=== PATIENT | male | born 1940 | race Caucasian/White ===

== ENCOUNTER 2022-04-22 11:31 | Inpatient (IN) | payer OTHER ==
--- OUTSIDE RECORDS SUMMARY | 2022-04-22 11:41 | XMS REPORT | Continuity of Care Document ---
:1940 Author Organization [facility] t Address [address] [place] [address] [address] [place] [address] Care Team Providers Name Role Phone RAMESH REY Primary Care Physician Unavailable Brandon ANDERS, Sakshi Renteria Attending Clinician Unavailable JAYDEN MATHEW Attending Clinician Unavailable Megan Ozuna DO Attending Clinician Jayden Mathew DO Attending Clinician Ramesh Rey MD Attending Clinician Doctor Unassigned, [place] Attending Clinician Unavailable Veronica WELLS, Reginald Vargas Attending Clinician [phone] Ed Ritter MD Attending Clinician Shayla Del Angel MD Attending Clinician Micah Mariee MD Attending Clinician ALBERTO OJEDA Attending Clinician Unavailable UNKNOWN, ATTENDING Attending Clinician Unavailable Unknown, Attending Attending Clinician Unavailable RAMESH REY Attending Clinician Unavailable AZUL GONZALEZ Attending Clinician Unavailable Azul Melara Attending Clinician RENE YANG Attending Clinician Unavailable Nurse, Adc Pob Immunization Attending Clinician Unavailable Rene Yang DO Attending Clinician 2, [facility] Attending Clinician Unavailable Maia WELLS, Angelica Luna Attending Clinician ANGELICA CARVALHO Attending Clinician Unavailable Ileana Bowers LVN Attending Clinician Benjie LEAF SIZE PICKER, Daysi Attending Clinician Chester WELLS, Shemar Attending Clinician Nurse, [facility] Attending Clinician Unavailable Dipak WELLS, Dayna Attending Clinician Harinder LEAF SIZE PICKER, Shelley Levine Attending Clinician Shon RABAGO, Lilia Attending Clinician Provider, [facility] Attending Clinician Unavailable Vincent LEAF SIZE PICKER, Jayne Attending Clinician LI DELGADO Attending Clinician Unavailable Liyah RN, Oral Zee Attending Clinician Unavailable Eric Colbert MD Attending Clinician Omaghomi LEAF SIZE PICKER, Omayemi Attending Clinician Tomi LEAF SIZE PICKER, Kameron Attending Clinician KAMERON KRISHNA Attending Clinician Unavailable [facility], [facility] Cardiac Attending Clinician Unavailable Gabriele WELLS, Gopi Attending Clinician JAYDEN MATHEW Admitting Clinician Unavailable Jayden Mathew DO Admitting Clinician ED RITTER Admitting Clinician Unavailable MICAH MARIEE Admitting Clinician Unavailable Shemar Briggs MD Admitting Clinician Eric Colbert MD Admitting Clinician Payers Payer Name Policy Type Policy Number Effective Date Expiration Date Mauricio CARRILLO MANAGED [id number] 2020 MEDICARE PPO-HANG 00:00:00 Problems Condition Condition Condition Status Onset Resolution Last Treating Co mments Source Name Details Category Date Date Treatment Clinician Date Abnormal Abnormal Disease Active 2021-05 Unive rs echocardio echocardio 05-30 it y of gram gram 00:00: [address] Acute Acute Disease Active 2021-05 Univers kidney kidney 1-26 ity of injury injury 00:00: [place] superimpos superimpos 00 Me dical ed on CKD ed on CKD Bran ch Pulmonary Pulmonary Disease Active 2021-05 Uni vers hypertensi hypertensi 1-26 it y of on on 00:00: [place] [facility] Dyslipidem Dyslipidem Disease Active 2021-05 U nivers ia ia 1- ity of 00:00: [place] [facility] SOB SOB Disease Active 2021-05 Univers (shortness (shortness 1-24 it y of of breath) of breath) 00:[place] 00 [place] 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 hodi hypoxia hypoxia 0-11 st 00:00: Hospita 00 l 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 nce 9 st 00:00: Hospita 00 l Acute Acute Disease Active Methodi heart heart [address] st failure, failure, 00:00: Hospit a unspecifie unspecifie 00 l d heart d heart failure failure type type NSVT NSVT Disease Active Univers (nonsustai (nonsustai 7-19 it y of jesenia jesenia 00:00: [place] ventricula ventricula 00 Co dical r r Branch tachycardi tachycardi a) a) Lingular Lingular Disease Active Unive rs pneumonia pneumonia 7-17 ity of 00:00: [place] 00 Medical Branch 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 2020- U nivers protein-ca protein-ca 8-29 it y of kaylee kaylee 00:00: [place] malnutriti malnutriti 00 Me dical on on Branch Chest pain Chest pain Disease Active 2020- U nivers 8-28 ity of 00:00: [place] 00 Medical Branch Essential Essential Disease Active Uni vers hypertensi hypertensi 8-28 it y of on on 00:00: [place] 00 Medical Branch PAD PAD Disease Active Univers (periphera (periphera 8-28 it y of l artery l artery 00:00: [place] disease) disease) 00 Medica l Branch Frequent Frequent Disease Active Unive rs PVCs PVCs 8-28 ity of 00:00: [place] 00 Medical Branch Frequent Frequent Disease Active Unive rs PVCs PVCs 8- ity of 00:00: [place] 00 Medical Branch PAD PAD Disease Active Methodi (periphera (periphera 1-15 st l artery l artery 00:00: Hospit a disease) disease) 00 l [place] Disease Active 2016-05 Methodi virus virus 2-03 st enteritis enteritis 00:00: Hosp fareed 00 l Chronic Chronic Disease Active 2016-05 Univers combined combined 1- ity of systolic systolic 00:00: [place] and and 00 Medical diastolic 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 00:00: [place] disease disease 00 Medical Branch Acute on Acute on Disease Active 2016-05 Unive rs chronic chronic 1-28 ity of systolic systolic 00:00: [place] and and 00 Medical diastolic diastolic Bran ch heart heart failure, failure, NYHA class NYHA class 3 3 CAD CAD Disease Active 2016-05 Methodi (coronary (coronary 1-28 st artery artery 00:00: Hospita disease) disease) 00 l Coronary Coronary Disease Active 2016-05 Unive rs artery artery 1-27 ity of disease disease 00:00: [place] involving involving 00 Medi rory [place] Branch coronary coronary artery of artery of [place] heart with heart with angina angina pectoris pectoris Troponin I Troponin I Disease Active 2016-05 U nivers above above 1-27 ity of reference reference 00:00[place] range range 00 Medical Branch Respirator Respirator Disease Recurre 2016-05 Univers y failure y failure nce 1-23 ity of with with 00:00: [place] hypoxia hypoxia 00 Medical Branch Hypotensio Hypotensio Disease Active 2016-05 U nivers n n 1-22 ity of 00:00: [place] 00 Medical Branch Surgery, Surgery, Disease Active 2016-05 Unive rs elective elective 1-17 ity of 00:00: [place] 00 Medical Branch 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 Added automatic ally from request for surgery [id number] Screening Screening Disease Active Overview: Univers for for 12-06 Formattin ity of colorectal colorectal 00:00: g of this [place] cancer cancer 00 note Medical might be Branch different from the original. Added automatic ally from request for surgery [id number] Allergies, Adverse Reactions, Alerts Allergy Allergy Status Severity Reaction(s) Onset Inactive Treating Comm ents Source Name Type Date Date Clinician Hydrocod Propensi Active GI 2016-05 Method i one ty to Intolerance 06-01 st adverse 00:00: Hospita reaction 00 l s to drug HYDROCOD DRUG Active N/V 2015-05 Univers ONE INGREDI 05-27 ity of 00:00: [place] 00 Medical Branch Hydrocod Propensi Active Nausea 2015-05 Univer s one ty to and/or 05-27 ity of adverse Vomiting 00:00: [place] reaction 00 Medical s Branch Social History Social Habit Start Date Stop Date Quantity Comments Source History [facility] Alcohol Std Drinks Hospit al History [facility] Exposure to 2022-03-18 2022-03-28 Not sure University of SARS-CoV-2 (event) 00:00:00 11:33:00 [facility] Tobacco Comment 2022-03-28 2022-03-28 Quit November 2020 Unive rsity of 00:00:00 00:00:00 [facility] Cigarettes smoked 2022-03-28 2022-03-28 Univers ity of current (pack per 00:00:00 00:00:00 ) - Reported Branch Cigarette 2022-03-28 2022-03-28 University of pack-years 00:00:00 00:00:00 [facility] Tobacco use and 2022-03-28 2022-03-28 Smokeless Universit y of exposure 00:00:00 00:00:[address] non-[address] [facility] dicid Branch Alcohol intake 2022-02-11 2022-02-11 Current [facility] 00:00:00 00:00:00 non-drinker of Hospital alcohol (finding) History of tobacco 2020-11-13 Cigarette Smoker University of use 00:00:00 [facility] History [facility] 2019-12-31 2019-12-31 5 University o f Financial 00:00:00 00:00:00 [facility] History [facility] Food 2019-12-31 2019-12-31 1 Univers ity of Worry 00:00:00 00:00:00 [facility] History [facility] Food 2019-12-31 2019-12-31 1 Univers ity of Scarcity 00:00:00 00:00:00 [place] [facility] History SDSD 2019-12-31 2019-12-31 2 University o f Transport Med 00:00:00 00:00:00 [place] Medic al Branch History SDSD 2019-12-31 2019-12-31 2 University o f Transport Non-Med 00:00:00 00:00:00 [place] M edical Branch History [facility] 2018-05-19 2018-05-19 1 [facility] Alcohol Frequency 00:00:00 00:00:00 Hospita l Sex Ass[birth year] At [birth year] Universit y of 00:00:00 00:00:00 [facility] Smoking Status Start Date Stop Date Source Ex-smoker 2022-03-28 00:00:00 2022-03-28 00:00:00 [facility] Smokes tobacco daily 2018-05-19 00:00:00 [facility] Medications Ordered Filled Start Stop Current Ordering Indication Dosage Frequency Signature Comments Components Source Medication Medication Date Date Medication? Clinician (SIG) Name Name aspirin 81 2021-05- Yes [id number] 81mg Take 1 Univers mg EC 06-10 tablet by ity of tablet 00:00: 05:59 mouth in [place] 00 :00 the Medical morning Branch for 30 days. KCL 20 mEq 2021-05- Yes [id number] 40meq Take 2 Univers tablet 06-10 tablets by ity of 00:00: 05:59 mouth in [place] 00 :00 the Medical morning Branch for 30 days. levothyroxi 2021-05- Yes [id number] 150ug Take 1 Univers ne 150 mcg 06-10 tablet by ity of tablet 00:00: 05:59 mouth [place] 00 :00 every Medical morning Branch for 30 days. pantoprazol 2021-05- Yes [id number] 40mg Take 1 Univers e 40 mg EC 06-10 tablet by ity of tablet 00:00: 05:59 mouth in [place] 00 :00 the Medical morning Branch for 30 days. tamsulosin 2021-05- Yes [id number] .4mg Take 1 Univers 0.4 mg 24 06-10 capsule by ity of hr capsule 00:00: 05:59 [place] 00 :00 the Medical morning Branch for 30 days. aspirin 81 2021-05- Yes [id number] 81mg Take 1 Univers mg EC 06-10 tablet by ity of tablet 00:00: 05:59 mouth in [place] 00 :00 the [facility] morning Branch for 30 days. KCL 20 mEq 2021-05- Yes [id number] 40meq Take 2 Univers tablet 06-10 tablets by ity of 00:00: 05:59 mouth in [place] 00 :00 the Medical morning Branch for 30 days. levothyroxi 2021-05- Yes [id number] 150ug Take 1 Univers ne 150 mcg 06-10 tablet by ity of tablet 00:00: 05:59 mouth [place] 00 :[address] every [facility] for 30 days. pantoprazol 2021-05- Yes [id number] 40mg Take 1 Univers e 40 mg EC 06-10 tablet by ity of tablet 00:00: 05:59 mouth in [place] 00 :[address] the [facility] for 30 days. tamsulosin 2021-05- Yes [id number] .4mg Take 1 Univers 0.4 mg 24 06-10 capsule by ity of hr capsule 00:00: 05:59 mouth in [facility] 00 :00 [facility] for 30 days. nystatin 2021-05 Yes Topical, Unive rs (MYCOSTATIN 2-05 BID, First it y of ) cream 20:45: dose on [address] 04/08/22 at Branch 1445, Until Discontinu ed, Routine Coenzyme 2021-05 Yes 200mg Take 200 Univ ers Q10 10 mg 2-05 mg by ity of Cap 20:26: mouth [place] 08 daily. Medical Takes 200 Branch mg daily finasteride 2021-05 Yes 5mg Take 5 mg U nivers 5 mg tablet 2-05 by mouth ity of 20:26: in the [place] 08 morning. Medical Branch vit 2021-05 Yes Take by Univers C/E/Zn/kyrie 2-05 mouth. ity of r/lutein/ze 20:26: [place] axan 08 Medical (PRESERVISI Branch ON AREDS-2 ORAL) Coenzyme 2021-05 Yes 200mg Take 200 Univ ers Q10 10 mg 2-05 mg by ity of Cap 20:26: mouth [place] 08 daily. Medical Takes 200 Branch mg daily finasteride 2021-05 Yes 5mg Take 5 mg U nivers 5 mg tablet 2-05 by mouth ity of 20:26: in the [place] 08 morning. Medical Branch vit 2021-05 Yes Take by Univers C/E/Zn/kyrie 2-05 mouth. ity of r/lutein/ze 20:26: [place] axan 08 Medical (PRESERVISI Branch ON AREDS-2 ORAL) Magnesium 2021-05 Yes Take by Unive rs 250 mg Tab 2-05 mouth. ity of 20:26: [address] Branch clopidogreL 2021-05 Yes 75mg Take 75 mg Univers 75 mg 2-05 by mouth ity of tablet 20:26: daily. [address] Branch Magnesium 2021-05 Yes Take by Unive rs 250 mg Tab 2-05 mouth. ity of 20:26: [address] Branch clopidogreL 2021-05 Yes 75mg Take 75 mg Univers 75 mg 2-05 by mouth ity of tablet 20:26: daily. [address] Branch tamsulosin 2021-05- No Take by Uni vers 0.4 mg 24 2 12-05 mouth ity of hr capsule 20:26: 00:00 [place]. [place] 03 :00 Medical Branch hydrALAZINE 2021-05- No 50mg Take 50 mg Univers 50 mg 06-09 12-05 by mouth ity of tablet 20:26: 00:00 in the [place] 03 :00 morning Medical and 50 mg Branch at noon and 50 mg in the evening. levoFLOXaci 2021-05- No 500mg Take 500 Univers n 500 mg 06-09 12-05 mg by ity of tablet 20:26: 00:00 mouth [place] 03 :00 every 24 Medical (twenty-fo Branch ur) hours. aspirin 81 2021-05- No 81mg Take 81 mg Univers mg EC 06-09 12-05 by mouth. ity of tablet 17:41: 00:00 [place] 34 :00 Medical Branch ipratropium 2021-05 Yes 3mL Inhale 3 Un xuan -albuteroL 2-05 mL 4 ity of 0.5 mg-3 00:00: (four) [place] mg(2.5 mg 00 times Medical base)/3 mL daily as Branc h nebulizer needed for solution Wheezing, Shortness of Breath, Bronchospa sm or Chest tightness. lidocaine 5 2021-05 Yes [id number] 1{patch Apply 1 Univers % (700 2-05 } Patch to ity of mg/patch) 00:00: area(s) [place] patch 00 every 24 Medical (twenty-fo Branch ur) hours as needed for Localized pain. nystatin 2021-05 Yes [id number] Apply to Univers 100,000 2-05 area(s) 2 ity of unit/gram 00:00: (two) [place] cream 00 times Medical daily. Branch pregabalin 2021-05 Yes 50mg Take 1 Unive rs 50 mg 2-05 capsule by ity of capsule 00:00: mouth in [place] 00 the Medical morning Branch and 1 capsule in the evening. ipratropium 2021-05 Yes 3mL Inhale 3 Un xuan -albuteroL 2-05 mL 4 ity of 0.5 mg-3 00:00: (four) [place] mg(2.5 mg 00 times Medical base)/3 mL daily as Branc h nebulizer needed for solution Wheezing, Shortness of Breath, Bronchospa sm or Chest tightness. lidocaine 5 2021-05 Yes [id number] 1{patch Apply 1 Univers % (700 2-05 } Patch to ity of mg/patch) 00:00: area(s) [place] patch 00 every 24 Medical (twenty-fo Branch ur) hours as needed for Localized pain. nystatin 2021-05 Yes [id number] Apply to Univers 100,000 2-05 area(s) 2 ity of unit/gram 00:00: (two) [place] cream 00 times Medical daily. Branch pregabalin 2021-05 Yes 50mg Take 1 Unive rs 50 mg 2-05 capsule by ity of capsule 00:00: mouth in [place] 00 the Medical morning Branch and 1 capsule in the evening. furosemide 2021-05- Yes [id number] 80mg Take 1 Univers 80 mg 2-05 -05 tablet by ity of tablet 00:00: 05:59 mouth [place] 00 :00 every Medical morning Branch and evening for 30 days. hydrALAZINE 2021-05- Yes [id number] 25mg Take 1 Univers 25 mg 2-05 -05 tablet by ity of tablet 00:00: 05:59 mouth in [place] 00 :00 the Medical morning Branch and 1 tablet in the evening. Do all this for 30 days. isosorbide 2021-05- Yes [id number] 60mg Take 1 Univers mononitrate 2-05 -05 tablet by it y of 60 mg 24 hr 00:00: 05:59 mouth in [place] tablet 00 :00 the Medical morning Branch and 1 tablet in the evening. Do all this for 30 days. metoprolol 2021-05- Yes [id number] 25mg Take 1 Univers succinate 2-05 -05 tablet by ity of XL 25 mg 24 00:00: 05:59 mouth in [place] hr tablet 00 :00 the Medical morning Branch and 1 tablet in the evening. Do all this for 30 days. furosemide 2021-05- Yes [id number] 80mg Take 1 Univers 80 mg 2-09 02-05 tablet by ity of tablet 00:00: 05:59 mouth [place] 00 :00 every Medical morning Branch and evening for 30 days. hydrALAZINE 2021-05- Yes [id number] 25mg Take 1 Univers 25 mg 2-09 02-05 tablet by ity of tablet 00:00: 05:59 mouth in [place] 00 :00 the [facility] Branch and 1 tablet in the evening. Do all this for 30 days. isosorbide 2021-05- Yes [id number] 60mg Take 1 Univers mononitrate 2-05 -05 tablet by it y of 60 mg 24 hr 00:00: 05:59 mouth in [place] tablet 00 :00 the [facility] Branch and 1 tablet in the evening. Do all this for 30 days. metoprolol 2021-05- Yes [id number] 25mg Take 1 Univers succinate 2-05 -05 tablet by ity of XL 25 mg 24 00:00: 05:59 mouth in [place] hr tablet 00 :00 the Medical morning Branch and 1 tablet in the evening. Do all this for 30 days. furosemide 2021-05 Yes 80mg 80 mg, Unive rs (LASIX) 2-02 Oral, Q8H ity of tablet 80 02:00: ADJUSTED, [place] mg 00 First dose Medical on [facility] 04/04/22 at 2000, Until Discontinu ed, Routine spironolact 2021-05 Yes 25mg 25 mg, Univ ers one 06-06 Oral, BID, ity of (ALDACTONE) 02:00: First dose [place] tablet 25 00 (after Medical mg last Branch modificati on) on [facility] 04/04/22 at 2000, Until Discontinu ed, Routine furosemide 2021-05 No 120mg 120 mg, IV Univers (LASIX) 06-05 Push, Q6H, ity o f injection 00:00: 19:55 4 doses, [place] 120 mg 00 :00 First dose Medical (after Branch last modificati on) on Fri04/03/22 at 1800, Last dose on [facility] 04/04/22 at 1200, Routine spironolact 2021-05- No 25mg 25 mg, Uni vers one 06-02 Oral, ity of (ALDACTONE) 21:45: 18:35 DAILY, [place] tablet 25 00 :27 First dose Medi rory mg on [facility] 04/02/22 at 1545, Until Discontinu ed, Routine furosemide 2021-05 No 80mg 80 mg, IV U nivers (LASIX) 06-02 Push, Q6H, ity o f injection 17:30: 11:59 4 doses, [place] 80 mg 00 :00 First dose Medical on [facility] 04/02/22 at 1130, Last dose on Fri04/03/22 at 0000, Routine KCL 2021-05 Yes 40meq 40 mEq, Univers (KLOR-CON 06-02 Oral, ity of M20) tablet 15:30: DAILY, [place] 40 mEq 00 First dose Medical on [facility] 04/02/22 at 0930, Until Discontinu ed, Routine pregabalin 2021-05 Yes 50mg 50 mg, Unive rs (LYRICA) 06-02 Oral, BID, ity o f capsule 50 14:00: First dose [place] mg 00 on [facility] 04/02/22 Branch at 0800, Until Discontinu ed, Routine metoprolol 2021-05 Yes 25mg 25 mg, Unive rs succinate 06-01 Oral, BID, ity of XL (TOPROL 02:00: First dose [place] XL) tablet 00 (after Medical 25 mg last Branch modificati on) on 03/31/22 at 2000, Until Discontinu ed, Routine heparin 2021-05 No 5000U 5,000 Univers (porcine) 06-01 Units, ity of injection 02:00: 15:24 Subcutaneo [place] 5,000 Units 00 :44 us, Q12H, Med ical First dose Branch (after last modificati on) on 03/31/22 at 2000, Until Discontinu ed, Routine furosemide 2021-05 No [id number] 120mg 120 mg, Univers (LASIX) 05-31 9100 Slow IV ity of injection 18:30: 11:05 Push, Q6H, [place] 120 mg 00 :00 4 doses, Medical First dose Branch on 03/31/22 at 1230, Last dose on 04/01/22 at 0600, Routine sulfur 2021-05 No [id number] 5mL 5 mL, Un xuan hexafluorid 05-31 91 Intravenou i ty of e microsphr 17:00: 16:50 s, ONCE, 1 [place] (LUMASON) 00 :00 dose, On Medica l injection 5 Sun Branch mL 03/31/22 at 1100, Routine
vessel crew member approving Restricted medication : ANGELICA CARVALHO diltiazem 2021-05 No 120mg 120 mg, Uni vers XR 05-31 Oral, ity of (DILT-XR) 15:00: 14:39 DAILY, [place] capsule 120 00 :01 First dose Me dical mg (after Branch last modificati on) on 03/31/22 at 0900, Until Discontinu ed hydrALAZINE 2021-05 Yes 25mg 25 mg, Univ ers (APRESOLINE 05-31 Oral, BID, it y of ) tablet 25 02:00: First dose [place] mg 00 (after Medical last Branch modificati on) on 03/30/22 at 2000, Until Discontinu ed, Routine metoprolol 2021-05 No 50mg 50 mg, Univ ers succinate 05-31 Oral, BID, ity of XL (TOPROL 02:00: 00:13 First dose [place] XL) tablet 00 :09 (after Medical 50 mg last Branch modificati on) on 03/30/22 at 2000, Until Discontinu ed, Routine furosemide 2021-05 No [id number] 120mg 120 mg, Univers (LASIX) 05-29 9100 Slow IV ity of injection 18:45: 23:41 Push, Q6H, [place] 120 mg 00 :00 6 doses, Medical First dose Branch on Fri03/29/22 at 1245, Last dose on Fri03/30/22 at 1800, Routine tamsulosin 2021-05 Yes .4mg 0.4 mg, Univ ers (FLOMAX) -25 Oral, ity of capsule 0.4 15:00: DAILY, [place] mg 00 First dose Medical on Fri Branch 03/29/22 at 0900, Until Discontinu ed, Routine pantoprazol 2021-05 Yes 40mg 40 mg, Univ ers e -25 Oral, ity of (PROTONIX) 15:00: DAILY, [place] EC tablet 00 First dose Medi rory 40 mg on Fri Branch 03/29/22 at 0900, Until Discontinu ed, Routine finasteride 2021-05 Yes 5mg 5 mg, Unive rs (PROSCAR) -25 Oral, ity of tablet 5 mg 15:00: DAILY, [place] 00 First dose Medical on Fri Branch 03/29/22 at 0900, Until Discontinu ed, Routine clopidogreL 2021-05 Yes 75mg 75 mg, Univ ers (PLAVIX) 75 1-25 Oral, ity of mg tablet 15:00: DAILY, [place] 75 mg 00 First dose Medical on Fri Branch 03/29/22 at 0900, Until Discontinu ed, Routine aspirin EC 2021-05 Yes 81mg 81 mg, Unive rs tablet 81 1-25 Oral, ity of mg 15:00: DAILY, [place] 00 First dose Medical on Fri Branch 03/29/22 at 0900, Until Discontinu ed, Routine diltiazem 2021-05- No 240mg 240 mg, Uni vers XR 05-29 Oral, ity of (DILT-XR) 15:00: 19:08 DAILY, [place] capsule 240 00 :06 First dose Me dical mg on Fri Branch 03/29/22 at 0900, Until Discontinu ed furosemide 2021-05 No 40mg 40 mg, Univ ers (LASIX) 05-29 Slow IV ity of injection 15:00: 18:31 Push, [place] 40 mg 00 :27 DAILY, Medical First dose Branch on Fri03/29/22 at 0900, Until Discontinu ed, Routine levothyroxi 2021-05 Yes 150ug 150 mcg, U nivers ne 05-29 Oral, ity of (SYNTHROID) 12:00: QAM-0600, [place] tablet 150 00 First dose Med ical mcg on Fri Branch 03/29/22 at 0600, Until Discontinu ed, Routine piperacilli 2021-05 No 3.375g 3.375 g, Univers n-tazobacta 05-29 IV ity of m (ZOSYN) 07:00: 02:15 Piggyback, [place] 3.375 g in 00 :55 Q12H ABX, [facility] rory NaCl 0.9% 10 doses, Branc h (NS) 50 mL First dose MINI-BAG (after last reorder) on Fri03/29/22 at 0100, Last dose on Fri04/02/22 at 1300, Administer over 4 Hours, 50 mL
Reas on for Anti-Infec tive: Documented Infection< br>Documen marco antonio Infection Site: Respirator y
Durat ion of Therapy: 7 days heparin 2021-05 No 5000U 5,000 Univers (porcine) 05-29 Units, ity of injection 04:00: 21:20 Subcutaneo [place] 5,000 Units 00 :06 us, Q8H, Medi rory First dose Branch on Fri03/28/22 at 2200, Until Discontinu ed, Routine ipratropium 2021-05 Yes 3mL 3 mL, Unive rs -albuteroL 05-29 Inhalation ity of (DUONEB) 03:32: , QIDPRN, [place] 0.5 mg-3 59 Starting Medical mg(2.5 mg on [place] Branch base)/3 mL 03/28/22 nebulizer at 2132, solution 3 Until mL Discontinu ed, Routine, Wheezing, Shortness of Breath, Bronchospa sm, Chest tightness atorvastati 2021-05 Yes 40mg 40 mg, Univ ers n (LIPITOR) -25 Oral, QHS, it y of tablet 40 03:00: First dose [place] mg 00 on [facility] 03/28/22 Branch at 2100, Until Discontinu ed, Routine isosorbide 2021-05 Yes 60mg 60 mg, Unive rs mononitrate 25 Oral, BID, it y of (IMDUR) 24 02:00: First dose [place] hr tablet 00 on [facility] 60 mg 03/28/22 Branch at 2000, Until Discontinu ed, Routine gemfibroziL 2021-05 Yes 600mg 600 mg, Un xuan (LOPID) 05-29 Oral, BID, ity of tablet 600 02:00: First dose [place] mg 00 on [facility] 03/28/22 Branch at 1999, Until Discontinu ed, Routine hydrALAZINE 2021-05 No 50mg 50 mg, Uni vers (APRESOLINE 05-29 Oral, TID, i ty of ) tablet 50 02:00: 19:08 First dose [place] mg 00 :06 on [facility] 03/28/22 Branch at 2000, Until Discontinu ed, Routine lidocaine 2021-05- No 1{patch 1 Patch, Univers (LIDODERM) 05-29 } Topical, ity of 5 % (700 00:15: 11:42 Administer [place] mg/patch) 00 :00 over 12 Medical patch 1 Hours, Branch Patch ONCE, 1 dose, On [facility] 03/28/22 at 1815, Routine lidocaine 2021-05 Yes 1{patch 1 Patch, U nivers (LIDODERM) 05-28 } Topical, ity o f 5 % (700 23:26: Administer [place] as mg/patch) 28 over 12 Medical patch 1 Hours, Branch Patch [id number], Starting on [facility] 03/28/22 at 1726, Until Discontinu ed, Routine, Localized pain acetaminoph 2021-05 Yes 650mg 650 mg, Un xuan en 05-28 Oral, ity of (TYLENOL) 23:21: Q6HPRN, [place] tablet 650 03 Starting Medic al mg on [facility] 11/24/22 at 1721, Until Discontinu ed, Routine, Pain (scale 1-3) vancomycin 2021-05- No 15mg/kg 1,250 mg Univers 1,250 mg in 05-28 (rounded ity of NaCl 0.9% 19:15: 21:34 from [place] (NS) 250 mL 00 :00 1,279.5 mg Me dical VIAL-MATE = 15 mg/kg Bran ch IV ?85.3 kg), piggyback IV Piggyback, ONCE, 1 dose, On [facility] 03/28/22 at 1315, Administer over 90 Minutes, 250 mL
Reas on for Anti-Infec tive: Documented Infection& lt;br>Docu mented Infection Site: Respirator y
Durat ion of Therapy: 7 days piperacilli 2021-05- No 3.375g 3.375 g, Univers n-tazobacta 05-28 IV ity of m (ZOSYN) 18:30: 19:49 [place]back, [place] 3.375 g in 00 :00 ONCE, 1 Medica l NaCl 0.9% dose, On Branch (NS) 50 mL [place] MINI-BAG 03/28/22 at 1230, Administer over 30 Minutes, 50 mL
Reas on for Anti-Infec tive: Documented Infection< br>Documen marco antonio Infection Site: Respirator y
Du ration of Therapy: 7 days bumetanide 2021-05- No 1.25mg 1.25 mg, Univers (BUMEX) 05-28 Slow IV ity of injection 17:45: 18:08 Push[place] 1.25 mg 00 :00 ONCE, 1 Medical dose, On Branch [facility] 03/28/22 at 1145, STAT aspirin 81 2021-05 Yes 81mg Take 81 mg U nivers mg EC 05-28 by mouth. ity of tablet 17:28: [address] Magnesium 2021-05 Yes Take by Unive rs 250 mg Tab 24 mouth. ity of 17:28: [address] clopidogreL 2021-05 Yes 75mg Take 75 mg Univers 75 mg 05-28 by mouth ity of tablet 17:28: daily. [address] Coenzyme 2021-05 Yes 200mg Take 200 Univ ers Q10 10 mg 1-24 mg by ity of Cap 17:28: mouth [place] 01 daily. Medical Takes 200 Branch mg daily metoprolol 2021-05 Yes 50mg QD Take 1 Metho di succinate 0-17 tablet (50 st XL 14:26: mg total) Hospita (TOPROL-XL) 00 by mouth l 50 mg 24 hr every tablet evening. magnesium 2021-05 Yes 250mg QD Take 1 Metho di oxide 250 0-[address] mg 14:26: (250 mg Hospita magnesium 00 total) by l tablet mouth daily. nitroglycer 2021-[address] 1 Met hodi in 0-[address] (NITROSTAT) 14:26: (0.4 mg Hos danuta 0.4 MG SL 00 total) l tablet under the tongue every 5 (five) minutes as needed for chest pain. clopidogreL 2021-05 Yes 75mg QD Take 1 Meth orly (PLAVIX) 75 0-17 tablet (75 st mg tablet 14:26: mg total) Hos dan[place] 00 by mouth l daily. metoprolol 2021-05 75mg QD Take 1.5 Me thodi succinate 0-16 10-[address] XL 14:27: 00:00 (75 mg Hospita (TOPROL-XL) 08 :00 total) by l 50 mg 24 hr mouth tablet every morning. aspirin 2021-05 Yes 81mg QD Take 81 mg Meth orly (ECOTRIN) 0-[address] 81 MG 14:27: daily. Hospita enteric 02 l coated tablet atorvastati 2021-05 Yes 40mg QD Take 1 Meth orly n (LIPITOR) 0-16 tablet (40 st 40 mg 14:27: mg total) Hospita tablet 02 by mouth l nightly. gemfibrozil 2021-05 Yes 600mg Q.5D Take 600 M ethodi (LOPID) 600 0-[address] MG tablet 14:27: mouth 2 Hospi ta 02 (two) l times a day before meals. 7 AM and 7 PM levothyroxi 2021-05 Yes 150ug QD Take 150 M ethodi ne 0-[address] (SYNTHROID, 14:27: mouth Hospi ta LEVOXYL) 02 every l 150 mcg morning. tablet pantoprazol 2022-1 Yes 40mg QD Take 40 mg Methodi e 0-[address] (PROTONIX) 14:27: daily. Hospi ta 40 MG EC 02 l tablet torsemide 2021-05 Yes 20mg QD Take 20 mg Me thodi (DEMADEX) 0-[address] 20 MG 14:27: daily. Hospita tablet 02 l diltiazem 2021-05 Yes 240mg QD Take 240 Met hodi CD 0-[address] (CardIZEM 14:27: mouth Hospita CD) 240 MG 02 daily. l 24 hr capsule coenzyme 2021-05 Yes 200mg QD Take 200 Meth orly Q10 200 mg 0-[address] capsule 14:27: mouth Hospita 02 daily. l isosorbide 2021-05 Yes 60mg Q.5D Take 60 mg M ethodi mononitrate 0-[address] (IMDUR) 30 14:27: (two) Hospit a MG 24 hr 02 times a l tablet day. folic 2021-05 Yes 1{tbl} QD Take 1 Methodi acid/multiv 0-[address],iron,min 14:27: mouth Hospi ta er (CENTRUM 02 daily. l ORAL) tamsulosin 2021-05 Yes .4mg QD Take 1 Metho di (FLOMAX) 0-[address] 0.4 mg 00:00: (0.4 mg Hospita capsule 00 total) by l mouth daily with dinner. lisinopril 2021- No 2.5mg QD Take 2.5 M ethodi (PRINIVIL,Z 9-28 09-[address] ESTRIL) 5 07:42: 00:00 mouth Hospit a mg tablet 54 :00 daily. l Coenzyme 0 Yes 200mg Take 200 Univ ers Q10 (CO 9-27 mg by ity of Q-10) 10 mg 11:21: mouth [place] Cap 20 daily. Medical Takes 200 Branch mg daily Coenzyme 2021-0 Yes 200mg Take 200 Univ ers Q10 (CO 9-27 mg by ity of Q-10) 10 mg 11:21: mouth [place] Cap 20 daily. Medical Takes 200 Branch mg daily Coenzyme 2021-0 Yes 200mg Take 200 Univ ers Q10 (CO 9-27 mg by ity of Q-10) 10 mg 11:21: mouth [place] Cap 20 daily. Medical Takes 200 Branch mg daily Coenzyme 2021-0 Yes 200mg Take 200 Univ ers Q10 (CO 9-27 mg by ity of Q-10) 10 mg 11:21: mouth [place] Cap 20 daily. Medical Takes 200 Branch mg daily Coenzyme 2021-0 Yes 200mg Take 200 Univ ers Q10 (CO 9-27 mg by ity of Q-10) 10 mg 11:21: mouth [place] Cap 20 daily. Medical Takes 200 Branch mg daily iopamidol 2021- No [id number] 120mL 120 mL, Univers (ISOVUE 12-19 Intravenou ity o f 370-500 mL) 16:17: 16:18 s, ONCE, 1 [place] injection 00 :00 dose, On Medica l 120 mL Wed Branch 12/19/21 at 1130, Routine amoxicillin Yes [id number] 1{tbl} Take 1 Univers -clavulanat 4-20 tablet by ity of e 00:00: mouth 2 [place] (AUGMENTIN) 00 (two) Medical 875-125 mg times Branch per tablet daily. amoxicillin Yes [id number] 1{tbl} Take 1 Univers -clavulanat 4-20 tablet by ity of e 00:00: mouth 2 [place] (AUGMENTIN) 00 (two) Medical 875-125 mg times Branch per tablet daily. amoxicillin Yes [id number] 1{tbl} Take 1 Univers -clavulanat 4-20 tablet by ity of e 00:00: mouth 2 [place] (AUGMENTIN) 00 (two) Medical 875-125 mg times Branch per tablet daily. amoxicillin Yes [id number] 1{tbl} Take 1 Univers -clavulanat 4-20 tablet by ity of e 00:00: mouth 2 [place] (AUGMENTIN) 00 (two) Medical 875-125 mg times Branch per tablet daily. amoxicillin 2021- No [id number] 1{tbl} Take 1 Univers -clavulanat 4-20 09-27 tablet by it y of e 00:00: 00:00 mouth 2 [place] (AUGMENTIN) 00 :00 (two) Medical 875-125 mg times Branch per tablet daily. amoxicillin 2021- No [id number] 1{tbl} Take 1 Univers -clavulanat 4-20 -27 tablet by it y of e 00:00: 00:00 mouth 2 [place] (AUGMENTIN) 00 :00 (two) Medical 875-125 mg times Branch per tablet daily. codeine-gua 2021- No 10mL Take 10 mL Univers ifenesin 4-20 -28 by mouth ity of (CHERATUSSI 00:00: 04:59 every 6 [place] N AC) 00 :00 (six) Medical 10-100 mg/5 hours as Bran ch mL oral needed for solution Cough for up to 7 days. Indication s: cough codeine-gua 2021- No 10mL Take 10 mL Univers ifenesin 4-20 - by mouth ity of (CHERATUSSI 00:00: 04:59 every 6 [place] N AC) 00 :00 (six) Medical 10-100 mg/5 hours as Bran ch mL oral needed for solution Cough for up to 7 days. Indication s: cough albuterol Yes [id number] 2{puff} Inhale 2 Univers 90 4-12 Puffs ity of mcg/actuati 00:00: every 6 [place] on inhaler 00 (six) Medical hours as Branch needed for Wheezing, Shortness of Breath or Bronchospa sm. albuterol Yes [id number] 2{puff} Inhale 2 Univers 90 4-12 Puffs ity of mcg/actuati 00:00: every 6 [place] on inhaler 00 (six) Medical hours as Branch needed for Wheezing, Shortness of Breath or Bronchospa sm. albuterol Yes [id number] 2{puff} Inhale 2 Univers 90 4-12 Puffs ity of mcg/actuati 00:00: every 6 [place] on inhaler 00 (six) Medical hours as Branch needed for Wheezing, Shortness of Breath or Bronchospa sm. albuterol Yes [id number] 2{puff} Inhale 2 Univers 90 4-12 Puffs ity of mcg/actuati 00:00: every 6 [place] on inhaler 00 (six) Medical hours as Branch needed for Wheezing, Shortness of Breath or Bronchospa sm. albuterol 2021- No [id number] 2{puff} Inhale 2 Univers 90 4-12 -27 Puffs ity of mcg/actuati 00:00: 00:00 every 6 [place] on inhaler 00 :00 (six) Medical hours as Branch needed for Wheezing, Shortness of Breath or Bronchospa sm. albuterol 2021- No [id number] 2{puff} Inhale 2 Univers 90 4-12 -27 Puffs ity of mcg/actuati 00:00: 00:00 every 6 [place] on inhaler 00 :00 (six) Medical hours as Branch needed for Wheezing, Shortness of Breath or Bronchospa sm. clopidogreL 0 Yes 75mg Take 75 mg Univers 75 mg 3-10 by mouth ity of tablet 15:32: daily. [address] clopidogreL 0 Yes 75mg Take 75 mg Univers 75 mg 3-10 by mouth ity of tablet 15:32: daily. [address] clopidogreL 0 Yes 75mg Take 75 mg Univers 75 mg 3-10 by mouth ity of tablet 15:32: daily. [address] clopidogreL 0 Yes 75mg Take 75 mg Univers 75 mg 3-10 by mouth ity of tablet 15:32: daily. [address] clopidogreL 2021-0 Yes 75mg Take 75 mg Univers 75 mg 3-10 by mouth ity of tablet 15:32: daily. [address] clopidogreL 2021-0 Yes 75mg Take 75 mg Univers 75 mg 3-10 by mouth ity of tablet 15:32: daily. [address] clopidogreL 2021-0 Yes 75mg Take 75 mg Univers 75 mg 3-10 by mouth ity of tablet 15:32: daily. [address] clopidogreL 2021-0 Yes 75mg Take 75 mg Univers 75 mg 3-10 by mouth ity of tablet 15:32: daily. [address] clopidogreL 2021-0 Yes 75mg Take 75 mg Univers 75 mg 3-10 by mouth ity of tablet 15:32: daily. [address] atorvastati 0 Yes 40mg Take 40 mg Univers n 40 mg 2-28 by mouth ity of tablet 00:00: at [place] 00 bedtime. [facility] Branch atorvastati 2021-0 Yes 40mg Take 40 mg Univers n 40 mg 2-28 by mouth ity of tablet 00:00: at [place] [address] bedtime. Medical Branch atorvastati 2-0 Yes 40mg Take 40 mg Univers n 40 mg 2-28 by mouth ity of tablet 00:00: at [place] [address] bedtime. Medical Branch atorvastati 2-0 Yes 40mg Take 40 mg Univers n 40 mg 2-28 by mouth ity of tablet 00:00: at [place] [address] bedtime. Medical Branch atorvastati 2-0 Yes 40mg Take 40 mg Univers n 40 mg 2-28 by mouth ity of tablet 00:00: at [place] [address] bedtime. Medical Branch atorvastati 2-0 Yes 40mg Take 40 mg Univers n 40 mg 2-28 by mouth ity of tablet 00:00: at [place] [address] bedtime. Medical Branch atorvastati 2-0 Yes 40mg Take 40 mg Univers n 40 mg 2-28 by mouth ity of tablet 00:00: at [place] [address] bedtime. Medical Branch atorvastati 2-0 Yes 40mg Take 40 mg Univers n 40 mg 2-28 by mouth ity of tablet 00:00: at [place] [address] bedtime. Medical Branch atorvastati 2-0 Yes 40mg Take 40 mg Univers n 40 mg 2-28 by mouth ity of tablet 00:00: at [place] [address] bedtime. Medical Branch atorvastati 2-0 Yes 40mg Take 40 mg Univers n 40 mg 2-28 by mouth ity of tablet 00:00: at [place] [address] bedtime. Medical Branch atorvastati 2-0 Yes 40mg Take 40 mg Univers n 40 mg 2-28 by mouth ity of tablet 00:00: at [place] [address] bedtime. Medical Branch atorvastati 2-0 Yes 40mg Take 40 mg Univers n 40 mg 2-28 by mouth ity of tablet 00:00: at [place] [address] bedtime. Medical Branch isosorbide 2022-0 Yes 60mg Take 60 mg U nivers mononitrate 2-26 by mouth 2 it y of 30 mg 24 hr 00:00: (two) [place] tablet 00 times Medical daily. Branch isosorbide 2-0 Yes 60mg Take 60 mg U nivers mononitrate 2-26 by mouth 2 it y of 30 mg 24 hr 00:00: (two) [place] tablet 00 times Medical daily. Branch isosorbide 2022-0 Yes 60mg Take 60 mg U nivers mononitrate 2-26 by mouth 2 it y of 30 mg 24 hr 00:00: (two) [place] tablet 00 times Medical daily. Branch isosorbide 2022-0 Yes 60mg Take 60 mg U nivers mononitrate 2-26 by mouth 2 it y of 30 mg 24 hr 00:00: (two) [place] tablet 00 times Medical daily. Branch isosorbide 2022-0 Yes 60mg Take 60 mg U nivers mononitrate 2-26 by mouth 2 it y of 30 mg 24 hr 00:00: (two) [place] tablet 00 times Medical daily. Branch isosorbide 2022-0 Yes 60mg Take 60 mg U nivers mononitrate 2-26 by mouth 2 it y of 30 mg 24 hr 00:00: (two) [place] tablet 00 times Medical daily. Branch isosorbide 2022-0 Yes 60mg Take 60 mg U nivers mononitrate 2-26 by mouth 2 it y of 30 mg 24 hr 00:00: (two) [place] tablet 00 times Medical daily. Branch isosorbide 2022-0 Yes 60mg Take 60 mg U nivers mononitrate 2-26 by mouth 2 it y of 30 mg 24 hr 00:00: (two) [place] tablet 00 times Medical daily. Branch isosorbide 2022-0 Yes 60mg Take 60 mg U nivers mononitrate 2-26 by mouth 2 it y of 30 mg 24 hr 00:00: (two) [place] tablet 00 times Medical daily. Branch isosorbide 2022-0 Yes 60mg Take 60 mg U nivers mononitrate 2-26 by mouth 2 it y of 30 mg 24 hr 00:00: (two) [place] tablet 00 times Medical daily. Branch isosorbide 2022-0 2022- No 60mg Take 60 mg Univers mononitrate 2-26 12-05 by mouth 2 i ty of 30 mg 24 hr 00:00: 00:00 (two) [place] tablet 00 :00 times Medical daily. Branch nitroglycer 2-[address] 1 Uni vers in 0.4 mg 2-24 TABLET ity of sublingual 00:00: UNDER [place] tablet 00 TONGUE Medical EVERY 5 Branch MINS, UP TO 3 DOSES NEEDED FOR CHEST PAIN nitroglycer 2022-[address] 1 Uni vers in 0.4 mg 2-24 TABLET ity of sublingual 00:00: UNDER [place] tablet 00 TONGUE Medical EVERY 5 Branch MINS, UP TO 3 DOSES NEEDED FOR CHEST PAIN nitroglycer 2022-[address] 1 Uni vers in 0.4 mg 2-24 TABLET ity of sublingual 00:00: UNDER [place] tablet 00 TONGUE Medical EVERY 5 Branch MINS, UP TO 3 DOSES NEEDED FOR CHEST PAIN nitroglycer 2022-[address] 1 Uni vers in 0.4 mg 2-24 TABLET ity of sublingual 00:00: UNDER [place] tablet 00 TONGUE Medical EVERY 5 Branch MINS, UP TO 3 DOSES NEEDED FOR CHEST PAIN nitroglycer 2022-[address] 1 Uni vers in 0.4 mg 2-24 TABLET ity of sublingual 00:00: UNDER [place] tablet 00 TONGUE Medical EVERY 5 Branch MINS, UP TO 3 DOSES NEEDED FOR CHEST PAIN nitroglycer 2022-[address] 1 Uni vers in 0.4 mg 2-24 TABLET ity of sublingual 00:00: UNDER [place] tablet 00 TONGUE Medical EVERY 5 Branch MINS, UP TO 3 DOSES NEEDED FOR CHEST PAIN nitroglycer 2-[address] 1 Uni vers in 0.4 mg 2-24 TABLET ity of sublingual 00:00: UNDER [place] tablet 00 TONGUE Medical EVERY 5 Branch MINS, UP TO 3 DOSES NEEDED FOR CHEST PAIN nitroglycer 2-[address] 1 Uni vers in 0.4 mg 2-24 TABLET ity of sublingual 00:00: UNDER [place] tablet 00 TONGUE Medical EVERY 5 Branch MINS, UP TO 3 DOSES NEEDED FOR CHEST PAIN nitroglycer 2022-[address] 1 Uni vers in 0.4 mg 2-24 TABLET ity of sublingual 00:00: UNDER [place] tablet 00 TONGUE Medical EVERY 5 Branch MINS, UP TO 3 DOSES NEEDED FOR CHEST PAIN nitroglycer 2022-[address] 1 Uni vers in 0.4 mg 2-24 TABLET ity of sublingual 00:00: UNDER [place] tablet 00 TONGUE Medical EVERY 5 Branch MINS, UP TO 3 DOSES NEEDED FOR CHEST PAIN nitroglycer 2022-[address] 1 Uni vers in 0.4 mg 2-24 TABLET ity of sublingual 00:00: UNDER [place] tablet 00 TONGUE Medical EVERY 5 Branch MINS, UP TO 3 DOSES NEEDED FOR CHEST PAIN nitroglycer 2022-[address] 1 Uni vers in 0.4 mg 2-24 TABLET ity of sublingual 00:00: UNDER [place] tablet 00 TONGUE Medical EVERY 5 Branch MINS, UP TO 3 DOSES NEEDED FOR CHEST PAIN metoprolol Yes TAKE 1.5 Uni vers succinate 2-16 TABLET BY ity o f XL 50 mg 24 00:00: MOUTH IN [place] hr tablet 00 THE AM AND Medi rory 1 TABLET Branch BY MOUTH IN THE EVENING metoprolol Yes TAKE 1.5 Uni vers succinate 2-16 TABLET BY ity o f XL 50 mg 24 00:00: MOUTH IN [place] hr tablet 00 THE AM AND Medi rory 1 TABLET Branch BY MOUTH IN THE EVENING metoprolol Yes TAKE 1.5 Uni vers succinate 2-16 TABLET BY ity o f XL 50 mg 24 00:00: MOUTH IN [place] hr tablet 00 THE AM AND Medi rory 1 TABLET Branch BY MOUTH IN THE EVENING metoprolol Yes TAKE 1.5 Uni vers succinate 2-16 TABLET BY ity o f XL 50 mg 24 00:00: MOUTH IN [place] hr tablet 00 THE AM AND Medi rory 1 TABLET Branch BY MOUTH IN THE EVENING metoprolol Yes TAKE 1.5 Uni vers succinate 2-16 TABLET BY ity o f XL 50 mg 24 00:00: MOUTH IN [place] hr tablet 00 THE AM AND Medi rory 1 TABLET Branch BY MOUTH IN THE EVENING metoprolol Yes TAKE 1.5 Uni vers succinate 2-16 TABLET BY ity o f XL 50 mg 24 00:00: MOUTH IN [place] hr tablet 00 THE AM AND Medi rory 1 TABLET Branch BY MOUTH IN THE EVENING metoprolol Yes TAKE 1.5 Uni vers succinate 2-16 TABLET BY ity o f XL 50 mg 24 00:00: MOUTH IN [place] hr tablet 00 THE AM AND Medi rory 1 TABLET Branch BY MOUTH IN THE EVENING metoprolol Yes TAKE 1.5 Uni vers succinate 2-16 TABLET BY ity o f XL 50 mg 24 00:00: MOUTH IN [place] hr tablet 00 THE AM AND Medi rory 1 TABLET Branch BY MOUTH IN THE EVENING metoprolol Yes TAKE 1.5 Uni vers succinate 2-16 TABLET BY ity o f XL 50 mg 24 00:00: MOUTH IN [place] hr tablet 00 THE AM AND Medi rory 1 TABLET Branch BY MOUTH IN THE EVENING metoprolol 2021-0 Yes TAKE 1.5 Uni vers succinate 2-16 TABLET BY ity o f XL 50 mg 24 00:00: MOUTH IN [place] hr tablet 00 THE AM AND Medi rory 1 TABLET Branch BY MOUTH IN THE EVENING metoprolol 2021-0 2- No TAKE 1.5 Un xuan succinate 2-16 12-05 TABLET BY ity of XL 50 mg 24 00:00: 00:00 MOUTH IN [place] hr tablet 00 :00 THE AM AND Medi rory 1 TABLET Branch BY MOUTH IN THE EVENING diltiazem 2021-0 Yes 240mg Take 240 Uni vers 240 mg 24 2-01 mg by ity of hr capsule 00:00: mouth [place] 00 daily. Medical Branch diltiazem 2021-0 Yes 240mg Take 240 Uni vers 240 mg 24 2-01 mg by ity of hr capsule 00:00: mouth [place] 00 daily. Medical Branch diltiazem 2021-0 Yes 240mg Take 240 Uni vers 240 mg 24 2-01 mg by ity of hr capsule 00:00: mouth [place] 00 daily. Medical Branch diltiazem 2021-0 Yes 240mg Take 240 Uni vers 240 mg 24 2-01 mg by ity of hr capsule 00:00: mouth [place] 00 daily. Medical Branch diltiazem 2021-0 Yes 240mg Take 240 Uni vers 240 mg 24 2-01 mg by ity of hr capsule 00:00: mouth [place] 00 daily. Medical Branch diltiazem 2021-0 Yes 240mg Take 240 Uni vers 240 mg 24 2-01 mg by ity of hr capsule 00:00: mouth [place] 00 daily. Medical Branch diltiazem 2021-0 Yes 240mg Take 240 Uni vers 240 mg 24 2-01 mg by ity of hr capsule 00:00: mouth [place] 00 daily. Medical Branch diltiazem 2021-0 Yes 240mg Take 240 Uni vers 240 mg 24 2-01 mg by ity of hr capsule 00:00: mouth [place] 00 daily. Medical Branch diltiazem 2021-0 Yes 240mg Take 240 Uni vers 240 mg 24 2-01 mg by ity of hr capsule 00:00: mouth [place] 00 daily. Medical Branch diltiazem 2021-0 Yes 240mg Take 240 Uni vers 240 mg 24 2-01 mg by ity of hr capsule 00:00: mouth [place] 00 daily. Medical Branch diltiazem 2021-0 2021- No 240mg Take 240 Un xuan 240 mg 24 2-01 12-05 mg by ity of hr capsule 00:00: 00:00 mouth [place] 00 :00 daily. Medical Branch levothyroxi 0 Yes 150ug Take 150 U nivers ne 150 mcg 1-30 mcg by ity of tablet 00:00: [facility] every Medical morning. Branch pantoprazol 0 Yes 40mg Take 40 mg Univers e 40 mg EC 1-30 by mouth ity o f tablet 00:00: daily. Medical Branch levothyroxi 0 Yes 150ug Take 150 U nivers ne 150 mcg 1-30 mcg by ity of tablet 00:00: mouth [place] every Medical morning. Branch pantoprazol 0 Yes 40mg Take 40 mg Univers e 40 mg EC 1-30 by mouth ity o f tablet 00:00: daily. Medical Branch levothyroxi 0 Yes 150ug Take 150 U nivers ne 150 mcg 1-30 mcg by ity of tablet 00:00: mouth [place] every Medical morning. Branch pantoprazol 0 Yes 40mg Take 40 mg Univers e 40 mg EC 1-30 by mouth ity o f tablet 00:00: daily. Medical Branch levothyroxi 0 Yes 150ug Take 150 U nivers ne 150 mcg 1-30 mcg by ity of tablet 00:00: [facility] every Medical morning. Branch pantoprazol 2021-0 Yes 40mg Take 40 mg Univers e 40 mg EC 1-30 by mouth ity o f tablet 00:00: daily. [place] Medical Branch levothyroxi 0 Yes 150ug Take 150 U nivers ne 150 mcg 1-30 mcg by ity of tablet 00:00: [facility] every Medical morning. Branch pantoprazol 2021-0 Yes 40mg Take 40 mg Univers e 40 mg EC 1-30 by mouth ity o f tablet 00:00: daily. [place] Medical Branch levothyroxi 0 Yes 150ug Take 150 U nivers ne 150 mcg 1-30 mcg by ity of tablet 00:00: mouth [place] 00 every Medical morning. Branch pantoprazol 2021-0 Yes 40mg Take 40 mg Univers e 40 mg EC 1-30 by mouth ity o f tablet 00:00: daily. [place] 00 Medical Branch levothyroxi 0 Yes 150ug Take 150 U nivers ne 150 mcg 1-30 mcg by ity of tablet 00:00: mouth [place] 00 every Medical morning. Branch pantoprazol 0 Yes 40mg Take 40 mg Univers e 40 mg EC 1-30 by mouth ity o f tablet 00:00: daily. [place] 00 Medical Branch levothyroxi 0 Yes 150ug Take 150 U nivers ne 150 mcg 1-30 mcg by ity of tablet 00:00: mouth [place] 00 every Medical morning. Branch pantoprazol 0 Yes 40mg Take 40 mg Univers e 40 mg EC 1-30 by mouth ity o f tablet 00:00: daily. [place] 00 Medical Branch levothyroxi Yes 150ug Take 150 U nivers ne 150 mcg 1-30 mcg by ity of tablet 00:00: mouth [place] every Medical morning. Branch pantoprazol 0 Yes 40mg Take 40 mg Univers e 40 mg EC 1-30 by mouth ity o f tablet 00:00: daily. [place] 00 Medical Branch levothyroxi 0 Yes 150ug Take 150 U nivers ne 150 mcg 1-30 mcg by ity of tablet 00:00: mouth [place] 00 every Medical morning. Branch pantoprazol 2021-0 Yes 40mg Take 40 mg Univers e 40 mg EC 1-30 by mouth ity o f tablet 00:00: daily. [place] 00 Medical Branch levothyroxi 2021-0 2021- No 150ug Take 150 Univers ne 150 mcg 1-30 12-05 mcg by ity of tablet 00:00: 00:00 mouth [place] 00 :00 every Medical morning. Branch pantoprazol 2021-0 2021- No 40mg Take 40 mg Univers e 40 mg EC 1-30 12-05 by mouth ity of tablet 00:00: 00:00 daily. [place] 00 :00 Medical Branch aspirin 81 2020-0 Yes 81mg Take 81 mg U nivers mg EC 7-26 by mouth. ity of tablet 10:05: [place] 59 Medical Branch Magnesium 2020-0 Yes Take by Unive rs 250 mg Tab 7-26 mouth. ity of 10:05: [place] [address] Medical Branch aspirin 81 0 Yes 81mg Take 81 mg U nivers mg EC 7-26 by mouth. ity of tablet 10:05: [place] [address] Medical Branch Magnesium 0 Yes Take by Unive rs 250 mg Tab 7-26 mouth. ity of 10:05: [place] [address] Medical Branch aspirin 81 2020-0 Yes 81mg Take 81 mg U nivers mg EC 7-26 by mouth. ity of tablet 10:05: [place] [address] Medical Branch Magnesium 0 Yes Take by Unive rs 250 mg Tab 7-26 mouth. ity of 10:05: [place] [address] Medical Branch aspirin 81 0 Yes 81mg Take 81 mg U nivers mg EC 7-26 by mouth. ity of tablet 10:05: [place] [address] Medical Branch Magnesium 0 Yes Take by Unive rs 250 mg Tab 7-26 mouth. ity of 10:05: [address] Branch aspirin 81 0 Yes 81mg Take 81 mg U nivers mg EC 7-26 by mouth. ity of tablet 10:05: [place] [address] Medical Branch Magnesium 0 Yes Take by Unive rs 250 mg Tab 7-26 mouth. ity of 10:05: [address] Branch aspirin 81 0 Yes 81mg Take 81 mg U nivers mg EC 7-26 by mouth. ity of tablet 10:05: [address] Branch Magnesium 0 Yes Take by Unive rs 250 mg Tab 7-26 mouth. ity of 10:05: [address] aspirin 81 0 Yes 81mg Take 81 mg U nivers mg EC 7-26 by mouth. ity of tablet 10:05: [place] [address] Medical Branch Magnesium 0 Yes Take by Unive rs 250 mg Tab 7-26 mouth. ity of 10:05: [place] [address] Medical Branch aspirin 81 2020-0 Yes 81mg Take 81 mg U nivers mg EC 7-26 by mouth. ity of tablet 10:05: [place] [address] Medical Branch Magnesium 2020-0 Yes Take by Unive rs 250 mg Tab 7-26 mouth. ity of 10:05: [place] [address] Medical Branch aspirin 81 2020-0 Yes 81mg Take 81 mg U nivers mg EC 7-26 by mouth. ity of tablet 10:05: [place] 59 Medical Branch Magnesium 2020-0 Yes Take by Unive rs 250 mg Tab 7- mouth. ity of 10:05: [place] 59 Medical Branch gemfibrozil 2018-0 Yes TAKE 1 Univ ers 600 mg 2-05 TABLET BY ity of tablet 00:00: MOUTH 2 00 TIMES A Medical DAY Branch gemfibrozil 2018-0 Yes TAKE 1 Univ ers 600 mg 2-05 TABLET BY ity of tablet 00:00: MOUTH 2 TIMES A Medical DAY Branch gemfibrozil 2017-0 Yes TAKE 1 Univ ers 600 mg 2-05 TABLET BY ity of tablet 00:00: MOUTH 2 TIMES A Medical DAY Branch gemfibrozil 2017-0 Yes TAKE 1 Univ ers 600 mg 2-05 TABLET BY ity of tablet 00:00: MOUTH 2 TIMES A Medical DAY Branch gemfibrozil 0 Yes TAKE 1 Univ ers 600 mg 2-05 TABLET BY ity of tablet 00:00: MOUTH 2 TIMES A Medical DAY Branch gemfibrozil 2017-0 Yes TAKE 1 Univ ers 600 mg 2-05 TABLET BY ity of tablet 00:00: MOUTH 2 TIMES A Medical DAY Branch gemfibrozil 2017-0 Yes TAKE 1 Univ ers 600 mg 2-05 TABLET BY ity of tablet 00:00: MOUTH 2 TIMES A Medical DAY Branch gemfibrozil 2017-0 Yes TAKE 1 Univ ers 600 mg 2-05 TABLET BY ity of tablet 00:00: MOUTH 2 TIMES A Medical DAY Branch gemfibrozil 2018-0 Yes TAKE 1 Univ ers 600 mg 2-05 TABLET BY ity of tablet 00:00: MOUTH 2 TIMES A Medical DAY Branch gemfibrozil 2017-0 Yes TAKE 1 Univ ers 600 mg 2-05 TABLET BY ity of tablet 00:00: MOUTH 2 TIMES A Medical DAY Branch gemfibrozil 2017-0 Yes TAKE 1 Univ ers 600 mg 2-05 TABLET BY ity of tablet 00:00: MOUTH 2 TIMES A Medical DAY Branch gemfibrozil 2017-0 Yes TAKE 1 Univ ers 600 mg 2-05 TABLET BY ity of tablet 00:00: MOUTH 2 TIMES A Medical DAY Branch torsemide 2017-0 Yes 20mg Take 20 mg Un xuan 20 mg 2-04 by mouth ity of tablet 00:00: daily. [place] [facility] torsemide 2018-0 Yes 20mg Take 20 mg Un xuan 20 mg 2-04 by mouth ity of tablet 00:00: daily. [place] [facility] torsemide 2018-0 Yes 20mg Take 20 mg Un xuan 20 mg 2-04 by mouth ity of tablet 00:00: daily. [place] [facility] torsemide 2018-0 Yes 20mg Take 20 mg Un xuan 20 mg 2-04 by mouth ity of tablet 00:00: daily. [place] [facility] torsemide 2018-0 Yes 20mg Take 20 mg Un xuan 20 mg 2-04 by mouth ity of tablet 00:00: daily. [place] [facility] torsemide 2018-0 Yes 20mg Take 20 mg Un xuan 20 mg 2-04 by mouth ity of tablet 00:00: daily. [place] [facility] torsemide 2018-0 Yes 20mg Take 20 mg Un xuan 20 mg 2-04 by mouth ity of tablet 00:00: daily. [place] [facility] torsemide 2018-0 Yes 20mg Take 20 mg Un xuan 20 mg 2-04 by mouth ity of tablet 00:00: daily. [place] [facility] torsemide 2018-0 Yes 20mg Take 20 mg Un xuan 20 mg 2-04 by mouth ity of tablet 00:00: daily. [place] [facility] torsemide 2018-0 Yes 20mg Take 20 mg Un xuan 20 mg 2-04 by mouth ity of tablet 00:00: daily. [place] [facility] torsemide 2018-0 2022- No 20mg Take 20 mg U nivers 20 mg 2-04 12-05 by mouth ity of tablet 00:00: 00:00 daily. [place] 00 :00 Medical Branch Immunizations Ordered Filled Immunization Date Status Comments [facility] e Immunization Name Name SARS-COV-2 COVID-19 2021-03-27 Completed Unive rsity of MODERNA BOOSTER 00:00:00 [facility] ical VACCINE Branch SARS-COV-2 COVID-19 2021-03-27 Completed Unive rsity of MODERNA BOOSTER 00:00:00 [facility] ical VACCINE Branch SARS-COV-2 COVID-19 2021-03-27 Completed Unive rsity of MODERNA 0.25ML 00:00:00 [facility] BOOSTER VACCINE Branch SARS-COV-2 COVID-19 2021-03-27 Completed Unive rsity of MODERNA 0.25ML 00:00:00 [place] [facility] VACCINE Branch SARS-COV-2 COVID-19 2021-03-27 Completed Unive rsity of MODERNA 0.25ML 00:00:00 [place] [facility] BOOSTER VACCINE Branch SARS-COV-2 COVID-19 2021-03-27 Completed Unive rsity of MODERNA 0.25ML 00:00:00 [place] [facility] BOOSTER VACCINE Branch SARS-COV-2 COVID-19 2021-03-27 Completed Unive rsity of MODERNA 0.25ML 00:00:00 [place] [facility] BOOSTER VACCINE Branch SARS-COV-2 COVID-19 2021-03-27 Completed Unive rsity of MODERNA 0.25ML 00:00:00 [place] [facility] BOOSTER VACCINE Branch SARS-COV-2 COVID-19 2021-03-27 Completed Unive rsity of MODERNA 0.25ML 00:00:00 [place] [facility] BOOSTER VACCINE Branch SARS-COV-2 COVID-19 2021-03-27 Completed Unive rsity of MODERNA 0.25ML 00:00:00 [place] [facility] BOOSTER VACCINE Branch SARS-COV-2 COVID-19 2021-03-27 Completed Unive rsity of MODERNA 0.25ML 00:00:00 [place] [facility] BOOSTER VACCINE Branch SARS-COV-2 COVID-19 2021-03-27 Completed Unive rsity of MODERNA 0.25ML 00:00:00 [place] [facility] BOOSTER VACCINE Branch SARS-COV-2 COVID-19 2020-06-07 Completed Unive rsity of MODERNA VACCINE 00:00:00 [place] [facility] SARS-COV-2 COVID-19 2020-06-07 Completed Unive rsity of MODERNA VACCINE 00:00:00 [place] [facility] SARS-COV-2 COVID-19 2020-06-07 Completed Unive rsity of MODERNA VACCINE 00:00:00 [place] [facility] SARS-COV-2 COVID-19 2020-06-07 Completed Unive rsity of MODERNA VACCINE 00:00:00 [place] [facility] SARS-COV-2 COVID-19 2020-06-07 Completed Unive rsity of MODERNA 12+ YRS 00:00:00 [place] [facility] VACCINE Branch SARS-COV-2 COVID-19 2020-06-07 Completed Unive rsity of MODERNA 12+ YRS 00:00:00 [place] [facility] VACCINE Branch SARS-COV-2 COVID-19 2020-06-07 Completed Unive rsity of MODERNA 12+ YRS 00:00:00 [place] [facility] VACCINE Branch SARS-COV-2 COVID-19 2020-06-07 Completed Unive rsity of MODERNA 12+ YRS 00:00:00 [place] [facility] VACCINE Branch SARS-COV-2 COVID-19 2020-06-07 Completed Unive rsity of MODERNA 12+ YRS 00:00:00 [place] [facility] VACCINE Branch SARS-COV-2 COVID-19 2020-06-07 Completed Unive rsity of MODERNA 12+ YRS 00:00:00 [place] [facility] VACCINE Branch SARS-COV-2 COVID-19 2020-06-07 Completed Unive rsity of MODERNA 12+ YRS 00:00:00 [place] [facility] VACCINE Branch SARS-COV-2 COVID-19 2020-06-07 Completed Unive rsity of MODERNA 12+ YRS 00:00:00 [place] [facility] VACCINE Branch SARS-COV-2 COVID-19 2020-05-10 Completed Unive rsity of MODERNA VACCINE 00:00:00 [place] [facility] SARS-COV-2 COVID-19 2020-05-10 Completed Unive rsity of MODERNA VACCINE 00:00:00 [place] [facility] SARS-COV-2 COVID-19 2020-05-10 Completed Unive rsity of MODERNA VACCINE 00:00:00 [place] [facility] SARS-COV-2 COVID-19 2020-05-10 Completed Unive rsity of MODERNA VACCINE 00:00:00 [place] [facility] SARS-COV-2 COVID-19 2020-05-10 Completed Unive rsity of MODERNA 12+ YRS 00:00:00 [place] [facility] ical VACCINE Branch SARS-COV-2 COVID-19 2020-05-10 Completed Unive rsity of MODERNA 12+ YRS 00:00:00 [place] [facility] VACCINE Branch SARS-COV-2 COVID-19 2020-05-10 Completed Unive rsity of MODERNA 12+ YRS 00:00:00 [place] [facility] VACCINE Branch SARS-COV-2 COVID-19 2020-05-10 Completed Unive rsity of MODERNA 12+ YRS 00:00:00 [place] [facility] VACCINE Branch SARS-COV-2 COVID-19 2020-05-10 Completed Unive rsity of MODERNA 12+ YRS 00:00:00 [place] [facility] VACCINE Branch SARS-COV-2 COVID-19 2020-05-10 Completed Unive rsity of MODERNA 12+ YRS 00:00:00 [place] [facility] VACCINE Branch SARS-COV-2 COVID-19 2020-05-10 Completed Unive rsity of MODERNA 12+ YRS 00:00:00 [place] [facility] VACCINE Branch SARS-COV-2 COVID-19 2020-05-10 Completed Unive rsity of MODERNA 12+ YRS 00:00:00 [facility] ical VACCINE Branch Influenza High Dose 2020-02-04 Completed Unive rsity of Quad 00:00:00 [facility] Influenza High Dose 2020-02-04 Completed Unive rsity of Quad 00:00:00 [facility] Influenza High Dose 2020-02-04 Completed Unive rsity of [place] 00:00:00 [facility] Influenza High Dose 2020-02-04 Completed Unive rsity of Quad 00:00:00 [facility] Influenza High Dose 2020-02-04 Completed Unive rsity of Quad 00:00:00 [facility] Influenza High Dose 2020-02-04 Completed Unive rsity of Quad 00:00:00 [facility] Influenza High Dose 2020-02-04 Completed Unive rsity of Quad 00:00:00 [facility] Influenza High Dose 2020-02-04 Completed Unive rsity of Quad 00:00:00 [facility] Influenza High Dose 2020-02-04 Completed Unive rsity of Quad 00:00:00 [facility] Influenza High Dose 2020-02-04 Completed Unive rsity of Quad 00:00:00 [facility] Influenza High Dose 2020-02-04 Completed Unive rsity of Quad 00:00:00 [facility] Influenza High Dose 2020-02-04 Completed Unive rsity of Quad 00:00:00 [facility] Pneumococcal 2020-01-01 Completed University o f Polysaccharide, 00:00:00 [place] [facility] PPSV23 (PNEUMOVAX) Branch Pneumococcal 2020-01-01 Completed University o f Polysaccharide, 00:00:00 [place] [facility] ical PPSV23 (PNEUMOVAX) Branch Pneumococcal 2020-01-01 Completed University o f Polysaccharide, 00:00:00 [place] [facility] ical PPSV23 (PNEUMOVAX) Branch Pneumococcal 2020-01-01 Completed University o f Polysaccharide, 00:00:00 [place] [facility] PPSV23 (PNEUMOVAX) Branch Pneumococcal 2020-01-01 Completed University o f Polysaccharide, 00:00:00 [place] [facility] PPSV23 (PNEUMOVAX) Branch Pneumococcal 2020-01-01 Completed University o f Polysaccharide, 00:00:00 [place] [facility] PPSV23 (PNEUMOVAX) Branch Pneumococcal 2020-01-01 Completed University o f Polysaccharide, 00:00:00 [place] [facility] PPSV23 (PNEUMOVAX) Branch Pneumococcal 2020-01-01 Completed University o f Polysaccharide, 00:00:00 [place] [facility] PPSV23 (PNEUMOVAX) Branch Pneumococcal 2020-01-01 Completed University o f Polysaccharide, 00:00:00 [place] [facility] PPSV23 (PNEUMOVAX) Branch Pneumococcal 2020-01-01 Completed University o f Polysaccharide, 00:00:00 [place] [facility] PPSV23 (PNEUMOVAX) Branch Pneumococcal 2020-01-01 Completed University o f Polysaccharide, 00:00:00 [place] [facility] PPSV23 (PNEUMOVAX) Branch Pneumococcal 2020-01-01 Completed University o f Polysaccharide, 00:00:00 [place] [facility] PPSV23 (PNEUMOVAX) Branch Influenza High Dose 2017-03-29 Completed Unive rsity of 00:00:00 [facility] Influenza High Dose 2017-03-29 Completed Unive rsity of 00:00:00 [facility] Influenza High Dose 2017-03-29 Completed Unive rsity of 00:00:00 [facility] Influenza High Dose 2017-03-29 Completed Unive rsity of 00:00:00 [facility] Influenza High Dose 2017-03-29 Completed Unive rsity of 00:00:00 [facility] Influenza High Dose 2017-03-29 Completed Unive rsity of 00:00:00 [facility] Influenza High Dose 2017-03-29 Completed Unive rsity of 00:00:00 [facility] Influenza High Dose 2017-03-29 Completed Unive rsity of 00:00:00 [place] [facility] Influenza High Dose 2017-03-29 Completed Unive rsity of 00:00:00 [place] [facility] Influenza High Dose 2017-03-29 Completed Unive rsity of 00:00:00 [place] [facility] Influenza High Dose 2017-03-29 Completed Unive rsity of 00:00:00 [place] [facility] Influenza High Dose 2017-03-29 Completed Unive rsity of 00:00:00 [facility] Vital Signs Vital Name Observation Time Observation Value Comments Source Heart rate 2022-04-09 01:31:00 66 /min [facility] Respiratory rate 2022-04-09 01:31:00 18 /min Univ ersity of [facility] Oxygen saturation in 2022-04-09 01:31:00 97 /min University of Arterial blood by [facility] Pulse oximetry Branch Systolic blood 2022-04-08 22:25:00 111 mm[Hg] Univer sity of pressure [facility] Diastolic blood 2022-04-08 22:25:00 53 mm[Hg] Unive rsity of pressure [facility] Body temperature 2022-04-08 22:25:00 37.06 Angeline Univ ersity of [facility] Body weight 2022-04-08 09:43:00 78.472 kg [facility]i ty [facility] BMI 2022-04-08 09:43:00 24.13 kg/m2 [facility] Body height 2022-03-28 21:16:00 180.3 cm [facility]i [facility] Oxygen saturation in 2022-01-29 16:19:00 96 /min University of Arterial blood by [facility] Pulse oximetry Branch Systolic blood 2022-01-29 16:17:00 139 mm[Hg] Univer sity of pressure [place] [facility] Diastolic blood 2022-01-29 16:17:00 72 mm[Hg] Unive rsity of pressure [facility] Heart rate 2022-01-29 16:17:00 102 /min [facility] [place] [facility] [place] Body temperature 2022-01-29 16:17:00 36.39 Angeline Univ ersity of [facility] Body height 2022-01-29 16:17:00 180.3 cm [facility]i ty [facility] Body weight 2022-01-29 16:17:00 73.483 kg [facility] BMI 2022-01-29 16:17:00 22.59 kg/m2 [facility] Systolic blood 2021-08-22 18:00:00 143 mm[Hg] Univer sity of pressure [facility] Diastolic blood 2021-08-22 18:00:00 72 mm[Hg] Unive rsity of pressure [facility] Heart rate 2021-08-22 17:54:00 59 /min [facility] Body temperature 2021-08-22 17:54:00 36.94 Angeline Univ ersity of [facility] Body height 2021-08-22 17:54:00 180.3 cm [facility] Body weight 2021-08-22 17:54:00 70.308 kg [facility] BMI 2021-08-22 17:54:00 21.62 kg/m2 [facility] Oxygen saturation in 2021-08-22 17:54:00 97 /min [facility] Arterial blood by [facility] Pulse oximetry Branch Systolic blood 2022-02-17 17:13:00 112 mm[Hg] [facility] pressure Diastolic blood 2022-02-17 17:13:00 51 mm[Hg] [facility] pressure Heart rate 2022-02-17 17:13:00 64 /min [facility] Body temperature 2022-02-17 17:13:00 36.78 Angeline [facility] Oxygen saturation in 2022-02-17 17:13:00 99 /min [facility] Arterial blood by Pulse oximetry Respiratory rate 2022-02-17 10:50:46 18 /min [facility] Body weight 2022-02-17 10:50:46 73.029 kg [facility] BMI 2022-02-17 10:50:46 22.45 kg/m2 [facility] Body height 2022-02-08 13:19:00 180.3 cm [facility] Procedures Procedure Date / Time Performing Clinician Source Performed COVID-19 (ID NOW RAPID 2022-04-08 22:52:00 Samm Aguilar [facility] BASIC METABOLIC PANEL (NA, 2022-04-08 11:32:00 Tessy Gillespie [facility] K, CL, CO2, GLUCOSE, BUN, Medica l Branch CREATININE, [place]) CBC WITH DIFF 2022-04-08 11:32:00 Tessy Gillespie [facility] HB ECG ROUTINE & RHYTHM 2022-04-07 23:59:04 Jose Miguel [facility] HB ECG ROUTINE & RHYTHM 2022-04-07 13:08:04 Jose Miguel [facility] MAGNESIUM 2022-04-07 09:44:00 [place]on [facility] BASIC METABOLIC PANEL (NA, 2022-04-07 09:44:00 [place], [facility] K, CL, CO2, GLUCOSE, BUN, Medica l Branch CREATININE, [place]) CBC WITHOUT DIFF 2022-04-07 09:44:00 [place]on [facility] N-TERMINAL PRO-BNP 2022-04-07 09:44:00 [place]on [facility] PHOSPHORUS 2022-04-06 16:55:00 [place] [facility] MAGNESIUM 2022-04-06 16:55:00 [place] [facility] BASIC METABOLIC PANEL (NA, 2022-04-06 16:55:00 [place], [facility] K, CL, CO2, GLUCOSE, BUN, Medica l Branch CREATININE, CA) CBC WITHOUT DIFF 2022-04-06 16:55:00 [place] [facility] N-TERMINAL PRO-BNP 2022-04-06 16:55:00 [place] [facility] MAGNESIUM 2022-04-05 11:00:00 [place] [facility] BASIC METABOLIC PANEL (NA, 2022-04-05 11:00:00 [place] [facility] K, CL, CO2, GLUCOSE, BUN, Medica l Branch CREATININE, CA) CBC WITH DIFF 2022-04-05 11:00:00 [place] [facility] N-TERMINAL PRO-BNP 2022-04-05 11:00:00 Robi Umana [facility] XR CHEST 1 VW 2022-04-04 19:26:05 Kavitha Chicas [facility] BASIC METABOLIC PANEL (NA, 2022-04-04 12:27:00 Samm Aguilar [facility] K, CL, CO2, GLUCOSE, BUN, Medica l Branch CREATININE, CA) CBC WITH DIFF 2022-04-04 12:27:00 Samm Aguilar [facility] N-TERMINAL PRO-BNP 2022-04-04 12:27:00 Samm Aguilar [facility] BASIC METABOLIC PANEL (NA, 2022-04-03 09:32:00 [facility], CO2, GLUCOSE, BUN, Medica l Branch CREATININE, CA) CBC WITH DIFF 2022-04-03 09:32:00 Samm Aguilar [facility] N-TERMINAL PRO-BNP 2022-04-03 09:32:00 Samm Aguilar [facility] LOWER EXTREMITY ARTERIAL 2022-04-02 17:35:00 Billie Nicole [facility] DUPLEX BILATERAL - BY Medical [facility] BASIC METABOLIC PANEL (NA, 2022-04-02 09:39:00 [facility], CL, CO2, GLUCOSE, BUN, Medica l Branch CREATININE, CA) CBC WITH DIFF 2022-04-02 09:39:00 Samm Aguilar [facility] N-TERMINAL PRO-BNP 2022-04-02 09:39:00 Samm Aguilar [facility] US RETROPERITONEAL 2022-04-01 18:09:31 Kofi Almaraz [facility] COMPLETE [facility] BASIC METABOLIC PANEL (NA, 2022-04-01 09:28:00 Tessy Gillespie [facility] K, CL, CO2, GLUCOSE, BUN, Medica l Branch CREATININE, CA) CBC WITH DIFF 2022-04-01 09:28:00 [facility] (TTE) 2022-03-31 17:01:00 Angelica Carvalho [facility] COMPLETE W/ CONTRAST Medical [facility] HB ECG ROUTINE & RHYTHM 2022-03-31 13:02:58 Tessy Gillespie [facility] BASIC METABOLIC PANEL (NA, 2022-03-31 09:33:00 Phyllis Roberson [facility] K, CL, CO2, GLUCOSE, BUN, Medica l Branch CREATININE, CA) N-TERMINAL PRO-BNP 2022-03-31 09:33:00 [facility]OUT[facility] & RHYTHM 2022-03-30 13:26:16 Tessy Gillespie [facility] TROPONIN I 2022-03-30 10:43:00 Angelica Carvalho [facility] BASIC METABOLIC PANEL (NA, 2022-03-30 10:43:00 Tessy Gillespie [facility] K, CL, CO2, GLUCOSE, BUN, [facility] CREATININE, CA) INTACT PTH CALCIUM GROUP 2022-03-30 10:43:00 Kofi Almaraz [facility] CBC WITH DIFF 2022-03-30 10:43:00 Tessy Gillespie [facility] N-TERMINAL PRO-BNP 2022-03-30 10:43:00 Angelica Carvalho [facility] CREATINE KINASE 2022-03-29 20:01:00 Kofi Almaraz [facility] OSMOLALITY URINE 2022-03-29 19:55:00 [facility]uf[facility] URINALYSIS 2022-03-29 19:55:00 Da [facility] POTASSIUM, URINE RANDOM 2022-03-29 19:55:00 Kofi Almaraz [facility] SODIUM, URINE RANDOM 2022-03-29 19:55:00 Kofi Almaraz [facility] PROTEIN CREAT RATIO URINE 2022-03-29 19:55:00 [facility]AST 2022-03-29 19:30:[address] [facility] TROPONIN I 2022-03-29 07:43:00 Jose Miguel Tessy [facility] MRSA / MSSA SCREEN BY PCR, 2022-03-28 19:11:00 Megan Ozuna [facility] BLOOD CULTURE SCREEN 2022-03-28 19:05:00 Megan Ozuna [facility] BLOOD CULTURE SCREEN 2022-03-28 18:50:00 Megan Ozuna [facility] XR CHEST 1 VW 2022-03-28 18:00:49 Megan Ozuna [facility] PHOSPHORUS 2022-03-28 17:48:00 Jose Miguel [facility] MAGNESIUM 2022-03-28 17:48:00 Jose Miguel [facility] FERRITIN SERUM 2022-03-28 17:48:00 Jose Miguel [facility] TROPONIN I 2022-03-28 17:48:00 Megan Ozuna [facility] COMP. METABOLIC PANEL 2022-03-28 17:48:00 Megan Ozuna [facility] ([id number] IRON PANEL 2022-03-28 17:48:00 Jose Miguel Tessy [facility] CBC WITH DIFF 2022-03-28 17:48:00 Megan Ozuna [facility] N-TERMINAL PRO-BNP 2022-03-28 17:48:[address] [facility] HB ECG ROUTINE & RHYTHM 2022-03-28 17:37:30 Megan Ozuna [facility] [place] CONSENT/REFUSAL FOR 2022-03-28 17:27:48 [facility] REFERRAL- REQUEST/RESPONSE 2022-03-05 05:01:00 Doctor Unassigned , [facility] COVID-19 QUALITATIVE 2022-02-17 10:58:00 [facility] Magdi PHOSPHORUS LEVEL 2022-02-16 08:09:00 [facility] MAGNESIUM LEVEL 2022-02-16 08:09:00 [facility] Renny [facility] BASIC METABOLIC PANEL 2022-02-16 08:09:00 Ransom[facility] ESTIMATED GFR 2022-02-16 08:09:[address] [facility] SODIUM LEVEL 2022-02-16 01:33:[address] [facility] XR CHEST 1 VW PORTABLE 2022-02-15 23:01:[address] [facility] CV CARDIAC PET MYOCARDIAL 2022-02-15 15:31:44 Micah Mariee [facility] PERFUSION IMAGING CV STRESS TEST 2022-02-15 15:16:35 Micah Mariee spital COMPREHENSIVE METABOLIC 2022-02-15 10:38:00 Micah Mariee Gini [facility] PANEL B NATRIURETIC PEPTIDE 2022-02-15 10:38:00 [facility] ESTIMATED GFR 2022-02-15 10:38:00 Micah Mariee spital SODIUM LEVEL 2022-02-15 05:50:[address] [facility] SODIUM LEVEL 2022-02-15 01:00:[address] [facility] POTASSIUM LEVEL 2022-02-14 19:34:00 Micah Mariee spital MAGNESIUM LEVEL 2022-02-14 19:34:00 Micah Mariee spital BASIC METABOLIC PANEL 2022-02-14 10:03:00 [facility] CBC HEMOGRAM 2022-02-14 10:03:00 [facility] ESTIMATED GFR 2022-02-14 10:03:00 [facility] CBC WITH PLATELET AND 2022-02-13 09:51:00 [facility] DIFFERENTIAL BASIC METABOLIC PANEL 2022-02-13 09:51:00 [facility] B NATRIURETIC PEPTIDE 2022-02-13 09:51:00 [facility] ESTIMATED GFR 2022-02-13 09:51:00 [facility] BIOPSY BONE MARROW 2022-02-12 20:31:42 Pamela Brandon [facility] SURGICAL PATHOLOGY REQUEST 2022-02-12 17:05:[address] [facility] [address] [facility] [facility] FLOW CYTOMETRY EVALUATION 2022-02-12 16:44:00 [facility] BONE MARROW TRAY 2022-02-12 16:44:[address] [facility] BC CHROMOSOME ANALYSIS 2022-02-12 16:44:00 RitterEd [facility] PANEL BC NHL FISH PANEL 2022-02-12 16:44:00 [facility] CBC WITH PLATELET AND 2022-02-12 08:36:00 [facility] DIFFERENTIAL BASIC METABOLIC PANEL 2022-02-12 08:36:00 [facility] B NATRIURETIC PEPTIDE 2022-02-12 08:36:00 [facility] MAGNESIUM LEVEL 2022-02-12 08:36:00 [facility] ospital PHOSPHORUS LEVEL 2022-02-12 08:36:00 [facility] Ed Gini [facility] ESTIMATED GFR 2022-02-12 08:36:00 [facility] POTASSIUM LEVEL 2022-02-11 23:34:00 [facility] MAGNESIUM LEVEL 2022-02-11 23:34:00 [facility] CBC WITH PLATELET AND 2022-02-11 09:36:00 [facility] DIFFERENTIAL BASIC METABOLIC PANEL 2022-02-11 09:36:00 [facility] B NATRIURETIC PEPTIDE 2022-02-11 09:36:00 [facility] Ed [facility] MAGNESIUM LEVEL 2022-02-11 09:36:00 [facility] PHOSPHORUS LEVEL 2022-02-11 09:36:00 RansomRenny Mariana [facility] ESTIMATED GFR 2022-02-11 09:36:00 [facility] CBC WITH PLATELET AND 2022-02-10 09:30:00 [facility] Ed [facility] DIFFERENTIAL BASIC METABOLIC PANEL 2022-02-10 09:30:00 [facility] ALPHA FETOPROTEIN 2022-02-10 09:30:[address] [facility] ESTIMATED GFR 2022-02-10 09:30:00 [facility] MANUAL DIFFERENTIAL 2022-02-10 09:30:00 [facility] CBC WITH PLATELET AND 2022-02-09 09:29:00 [facility]FFER[facility] BASIC METABOLIC PANEL 2022-02-09 09:29:00 [facility] MAGNESIUM LEVEL 2022-02-09 09:29:00 Renny Loja [facility] ESTIMATED GFR 2022-02-09 09:29:00 Ed Ritter ospital ECG PRE/POST OP 2022-02-08 15:37:20 Micah Mariee spital CV PCI STENT 2022-02-08 15:25:26 Micah Mariee spital CV SELECTIVE ANGIOGRAPHY 2022-02-08 15:25:26 Micah Mariee [facility] BYPASS GRAFT CV ANGIOGRAM EXTREMITY 2022-02-08 15:25:26 Micah Mariee Gini [facility] UNILATERAL ACTIVATED CLOTTING TIME 2022-02-08 14:44:00 [facility] NATRIURETIC PEPTIDE 2022-02-08 09:08:00 [facility] CBC WITH PLATELET AND 2022-02-08 09:08:00 [facility] DIFFERENTIAL BASIC METABOLIC PANEL 2022-02-08 09:08:00 Micah Mariee [facility] MAGNESIUM LEVEL 2022-02-08 09:08:00 Micah Mariee spital ESTIMATED GFR 2022-02-08 09:08:00 Micah Mariee spital MANUAL DIFFERENTIAL 2022-02-08 09:08:00 Ed Ritter [facility] ESTIMATED GFR 2022-02-08 09:01:00 [facility] MRI ABDOMEN W WO CONTRAST 2022-02-07 18:42:45 Bandar Martin [facility] B NATRIURETIC PEPTIDE 2022-02-07 09:01:00 [facility] XR CHEST 1 VW PORTABLE 2022-02-06 12:45:[address] [facility] COMPREHENSIVE METABOLIC 2022-02-06 10:47:00 Ed Ritter [facility] PANEL CBC WITH PLATELET AND 2022-02-06 10:47:00 [facility] DIFFERENTIAL B NATRIURETIC PEPTIDE 2022-02-06 10:47:00 [facility] MAGNESIUM LEVEL 2022-02-06 10:47:00 [facility] ospital PHOSPHORUS LEVEL 2022-02-06 10:47:00 [facility] ESTIMATED GFR 2022-02-06 10:47:00 [facility] CV RIGHT HEART CATH 2022-02-05 23:18:41 [facility] CV LEFT HEART CATH LV GRAM 2022-02-05 23:18:41 [facility] WITH CORS CV SELECTIVE ANGIOGRAPHY 2022-02-05 23:18:41 [facility] BYPASS GRAFT CV ANGIOGRAPHY INTERNAL 2022-02-05 23:18:41 [facility] MAMMARY GRAFT BASIC METABOLIC PANEL 2022-02-05 18:58:00 Renny Loja [facility] ESTIMATED GFR 2022-02-05 18:58:00 RansomRenny [facility] FERRITIN LEVEL 2022-02-05 08:28:00 Bandar Martin spital FOLATE LEVEL 2022-02-05 08:28:00 Bandar Martin spital HAPTOGLOBIN 2022-02-05 08:28:00 Bandar Martin spital VITAMIN B12 LEVEL 2022-02-05 08:28:00 [facility] CBC WITH PLATELET AND 2022-02-05 08:28:00 Bandar Martin [facility] DIFFERENTIAL US RENAL DOPPLER 2022-02-04 20:40:00 Micah Mariee ospital SPIROMETRY, DIFFUSION, 2022-02-04 17:00:[address] [facility] MIPS/MEPS CBC WITH PLATELET AND 2022-02-04 10:13:00 [facility] DIFFERENTIAL BASIC METABOLIC PANEL 2022-02-04 10:13:00 [facility] B NATRIURETIC PEPTIDE 2022-02-04 10:13:00 [facility] MAGNESIUM LEVEL 2022-02-04 10:13:00 [facility] ESTIMATED GFR 2022-02-04 10:13:00 [facility] CBC WITH PLATELET AND 2022-02-03 06:20:00 [facility] DIFFERENTIAL B NATRIURETIC PEPTIDE 2022-02-03 06:20:00 [facility] BASIC METABOLIC PANEL 2022-02-03 06:19:00 [facility] PHOSPHORUS LEVEL 2022-02-03 06:19:00 [facility] MAGNESIUM LEVEL 2022-02-03 06:19:00 Katherin Nicole spital ESTIMATED GFR 2022-02-03 06:19:00 [facility] XR CHEST 1 VW PORTABLE 2022-02-02 18:26:21 Micah Mariee Gini [facility] CBC WITH PLATELET AND 2022-02-02 10:56:00 [facility] DIFFERENTIAL BASIC METABOLIC PANEL 2022-02-02 10:56:00 [facility] B NATRIURETIC PEPTIDE 2022-02-02 10:56:00 [facility] ESTIMATED GFR 2022-02-02 10:56:00 [facility] CV MRA ABDOMEN PELVIS 2022-02-01 13:28:39 [facility] LOWER EXT RUNOFF W WO CONTRAST BASIC METABOLIC PANEL 2022-02-01 07:21:00 [facility] B NATRIURETIC PEPTIDE 2022-02-01 07:21:00 [facility] CBC WITH PLATELET AND 2022-02-01 07:21:00 [facility] DIFFERENTIAL ESTIMATED GFR 2022-02-01 07:21:00 Ed Ritter ospital US CAROTID DUPLEX 2022-01-31 20:24:[facility] BILATERAL CLOSTRIDIUM DIFFICILE 2022-01-31 17:22:00 [facility] TOXIN GENE (QUALITATIVE REAL-TIME PCR) ZZCOVID-19 SEROLOGY 2022-01-31 10:48:00 [facility] PATIENT SURVEILLANCE BASIC METABOLIC PANEL 2022-01-31 10:48:00 [facility] B NATRIURETIC PEPTIDE 2022-01-31 10:48:00 [facility] LIPID PANEL 2022-01-31 10:48:00 Micah Mariee Gini [facility] spital ESTIMATED GFR 2022-01-31 10:48:00 [facility] ospital ZZCOVID-19 ANTI-SPIKE IGG 2022-01-31 10:48:00 [facility] ANTIBODY TITER US ABDOMEN COMPLETE 2022-01-31 01:40:00 [facility] TTE COMPLETE, W CONTRAST, 2022-01-30 18:18:00 [facility] W DOPPLER ([id number]) CBC WITH PLATELET AND 2022-01-30 10:55:00 [facility] DIFFERENTIAL BASIC METABOLIC PANEL 2022-01-30 10:55:00 [facility] B NATRIURETIC PEPTIDE 2022-01-30 10:55:00 [facility] MAGNESIUM LEVEL 2022-01-30 10:55:00 Ed Ritter ospital HEMOGLOBIN A1C 2022-01-30 10:55:00 Ed Ritter ospital THYROID STIMULATING 2022-01-30 10:55:00 Ed Ritter [facility] HORMONE T4, FREE 2022-01-30 10:55:00 Ed [facility] H ospital TOTAL IRON BINDING 2022-01-30 10:55:00 [facility]AC[facility] ESTIM[facility] GFR 2022-01-30 10:55:00 Ed Ritterist H ospital TROPONIN T 2022-01-30 03:09:00 Ed Ritterist ospital US RENAL 2022-01-30 02:30:00 Ed [facility]itterist H ospital TROPONIN T 2022-01-30 00:26:00 [facility] URINALYSIS SCREEN AND 2022-01-30 00:26:00 Ed Ritter [facility] MICROSCOPY, WITH REFLEX TO CULTURE COVID-19 QUALITATIVE 2022-01-30 00:26:00 Ed Ritter [facility] RT-PCR URINE CULTURE 2022-01-30 00:26:00 Ed Ritter ospital XR CHEST 1 VW PORTABLE 2022-01-30 00:10:00 Ed Ritter [facility] ECG ED PRELIMINARY 2022-01-29 20:04:53 Sigrid Peraza [facility] INTERPRETATION [facility], E/M 2022-01-29 20:04:[address] [facility] 30-74 MINUTES Reginald Vargas CBC WITH PLATELET AND 2022-01-29 19:15:[address] [facility] DIFFERENTIAL Reginald RGini COMPREHENSIVE METABOLIC 2022-01-29 19:15:00 [facility] PANEL Reginald R. TROPONIN T 2022-01-29 19:15:00 [facility] B NATRIURETIC PEPTIDE 2022-01-29 19:15:[address] [facility] Reginald RGini PARTIAL THROMBOPLASTIN 2022-01-29 19:15:00 [facility] TIME (PTT) Reginald RGini PROTHROMBIN TIME WITH INR 2022-01-29 19:15:00 Veronica [facility] Reginald Vargas ESTIMATED GFR 2022-01-29 19:15:00 Rodo Martin ECG 12-LEAD 2022-01-29 19:09:02 Rodo Martin HB CREATININE BLOOD 2021-12-19 16:01:00 Unknown, Attending [facility] AUTHORIZATION FOR RELEASE 2021-12-06 05:01:00 Doctor Unassigned, [facility] Plan of Care Planned Activity Planned Date Details Comments Source Future Scheduled 2022-04-17 SHINGLES VACCINES (1 Met [facility] Test 16:14:31 of 2) [code = SHINGLES VACCINES (1 of 2)] Future Scheduled 2022-04-17 65+ [facility] 16:14:31 VACCINE (2 - PCV) [code = 65+ PNEUMOCOCCAL VACCINE (2 - PCV)] Future Scheduled 2022-04-17 COVID-19 VACCINE (4 - [facility] Test 16:14:31 Booster for Moderna series) [code = COVID-19 VACCINE (4 - Booster for Moderna series)] Future Scheduled 2022-04-17 INFLUENZA VACCINE Method [facility] Test 16:14:31 [code = INFLUENZA VACCINE] Encounters Start End Encounter Admission Attending Care Care Encounter Source Date/Time Date/Time Type Type Clinicians Facility Department ID 2021-03-05 Emergency [facility] [id number] Univers 08:51:34 ity [facility] 2021-03-02 Emergency [facility] [id number] Univers 14:40:[facility] 2022-04-09 2022-04-09 Transition MIRNA Taylor 1.2.840.114 [id number] Univers 00:00:00 00:00:00 of Care Sakshi AGOSTO 350.1.13.10 it y of [place] 4.2.7.2.686 [place] [id number] [address] 2022-03-28 2022-04-08 Inpatient Vincent [facility] [id number] Univers 11:32:00 20:24:00 [facility] 2022-03-28 2022-04-08 Hospital Megan Ozuna [facility] 1.2.84 0.114 [id number] Univers 11:32:00 20:24:00 Encounter Jayden Mathew 350.1.13.10 ity of [place] 4.2.7.2.686 [place] [facility] [id number] [facility] [address] 2022-03-27 2022-03-27 [facility] 1.2.082.312 [id number] Univers 00:00:00 00:00:00 Ramesh LaraPharm 350.1.13.10 it y of [place] 4.2.7.2.686 Timothy as MERON?BLEA [phone] [address] MEDICAL OFFICE [facility] 2022-03-05 2022-03-05 Orders Doctor CHRISTOPHE 1.2.840.114 [id number] Univers 00:00:00 00:00:00 Only Unassigned, WENDY 350.1.13.10 ity of [place] [facility] 4.2.7.2.686 Timothy as [phone] [facility] [address] 2022-02-28 2022-02-28 Telephone [facility] 1.2.269.048 [id number] Univers 00:00:00 00:00:[address] [facility] 350.1.13.10 it y of [place] 4.2.7.2.686 Timothy as MERON?BLEA [id number] [address] OFFICE [facility] 2022-02-18 2022-02-18 Telephone [facility] 1.2.976.801 [id number] Univers 00:00:00 00:00:[address] [facility] 350.1.13.10 it y of [place] 4.2.7.2.686 Timothy as MERON?BLEA [id number] [address] OFFICE [facility] 2022-01-29 2022-02-17 [facility] Reginald Martin 1.2.84 0.1 [id number] Methodi 14:05:00 14:26:00 Encounter Ed Ritter 13772.1.1 7 03 Shayla Chairez 3.430.2.7 Hospita .3.763697 l .8 2022-01-29 2022-02-17 Inpatient [place], [facility] [id number] [place] 00:00:00 00:00:00 SHAYLA Jeff [facility] 2022-02-15 2022-02-15 Hospital Hust, 1.2.840.1 [id number] Methodi 09:00:00 23:59:00 Encounter Micah Peralta 40087.1.[address] 3.430.2.7 Hospit a .3.713718 l .8 2022-02-15 2022-02-15 [facility] [id number] [place] 00:00:00 00:00:00 MICAH [address] 2022-02-08 2022-02-08 Surgery Hust, 1.2.840.1 [id number] Methodi 08:55:00 10:30:00 Micah [address]eralta [address] 3.430.2.7 Hospit a .3.606970 l .8 2022-02-05 2022-02-05 Surgery Hust, 1.2.840.1 [id number] Methodi 17:32:00 18:52:[address] 3.430.2.7 Hospit a .3.707395 l .8 2022-01-29 2022-01-29 Outpatient R [facility] [id number] [facility] 11:20:00 13:13:13 [facility] 2022-01-29 2022-01-29 Office [facility] 1.2.840.114 [id number] Univers 11:20:00 11:40:00 Visit [facility] 350.1.13.10 [facility] 4.2.7.2.686 Timothy as MERON?BLEA [id number] [address] MEDICAL OFFICE BUILDING 2022-01-29 2022-01-29 Travel 1.2.840.1 1.2.849.258 [id number] Methodi 00:00:00 00:00:[address] 3.430.2.7 0.2.7.3.698 Ho spita .3.979297 084.8 l .8 2021-12-19 2021-12-19 Outpatient R ANANYA, [facility] [id number] Univers 10:34:50 23:59:00 ATTENDING ity of [facility] 2021-12-19 2021-12-19 [facility] Unknown, [facility] 1.2.900.419 [id number] Univers 10:25:00 23:59:00 Encounter Attending EMMANUEL 350.1.13.10 ity of [place] 4.2.7.2.686 [place] [id number] [facility] [address] 2021-12-10 2021-12-10 [facility], 1.2.840.1 [id number] Methodi 00:00:00 00:00:00 Orders Micah Peralta 50014.1.[address] 3.430.2.7 Hospit a .3.528646 l .8 2021-12-06 2021-12-06 Orders Doctor SAEED 1.2.840.114 [id number] Univers 00:00:00 00:00:00 Only Unassigned, WENDY 350.1.13.10 ity of [place] [facility] 4.2.7.2.686 Timothy as [phone] [facility] [address] 2021-08-22 2021-08-22 Office Daniel [facility] 1.2.840.114 [id number] Univers 13:00:00 13:15:[address] [facility] 350.1.13.10 it y [facility] 4.2.7.2.686 Timothy as MERON?BLEA [id number] [address] MEDICAL OFFICE BUILDING 2021-08-22 2021-08-22 Outpatient Izzy REY [facility] [id number] Univers 13:00:00 13:00:00 RAMESH ortiz [facility] 2021-08-22 2021-08-22 Outpatient Izzy REY [facility] [id number] Univers 13:00:00 13:00:00 RAMESH ortiz [facility] 2021-08-14 2021-08-14 Outpatient [facility] [id number] Univers 10:41:19 23:59:00 AZUL ity [facility] 2021-08-14 2021-08-14 [facility] 1.2.128.478 [id number] Univers 10:41:19 23:59:00 Encounter Rania HEALTH 350.1.13.10 ity of [facility] 4.2.7.2.686 Timothy as MERON?BLEA [phone] [facility] [address] MEDICAL OFFICE [facility] 2021-08-14 2021-08-14 Urgent [facility] 1.2.840.114 [id number] Univers 10:20:00 11:13:03 Care Azul HEALTH 350.1.13.10 it y of [facility] 4.2.7.2.686 Timothy as MERON?BLEA [phone] [facility] [address] MEDICAL OFFICE [facility] 2021-08-14 2021-08-14 [facility]oxanna [facility] 1.2.890.172 [id number] Univers 00:00:00 00:00:00 Ramesh HEALTH 350.1.13.10 it y of [place] 4.2.7.2.686 Timothy as MERON?BLEA [phone] [facility] [address] MEDICAL OFFICE [facility] 2021-07-25 2021-07-25 Orders Doctor CHRISTOPHE 1.2.840.114 [id number] Univers 00:00:00 00:00:00 Only Unassigned, WENDY 350.1.13.10 ity of [place] [facility] 4.2.7.2.686 Timothy as [phone] [address] 2021-07-12 2021-07-12 Outpatient [facility] [id number] Univers 15:15:00 15:15:00 RAMESH ortiz [facility] 2021-07-12 2021-07-12 Orders Doctor CHRISTOPHE 1.2.840.114 [id number] Univers 00:00:00 00:00:00 Only Unassigned, WENDY 350.1.13.10 ity of [place] [facility] 4.2.7.2.686 Timothy as [phone] [facility] [address] 2021-03-27 2021-03-27 Outpatient R TREY [facility] [id number] Univers 11:00:00 11:00:00 RENE ortiz [facility] 2021-03-27 2021-03-27 Imm/Inj Nurse, Adc Pob Immunization [facility] 1.2.840.114 [id number] Univers 10:41:34 10:41:43 Visit Rene Yang 350.1.13 .10 it[place] of [place]2.7.2.[place] [phone] Me dical NAL 421 [facility] 2021-02-05 2021-02-05 Orders Doctor CHRISTOPHE 1.2.840.114 [id number] Univers 00:00:00 00:00:00 Only Unassigned, WENDY 350.1.13.10 ity of [place] [facility] 4.2.7.2.686 Timothy as [phone] [facility] [address] 2021-01-03 2021-01-03 [facility] 1.2.840.114 [id number] Univers 09:19:28 23:59:00 Encounter Ramesh Schreiber 350.1.13.10 ity of [place].2.686 [place] [phone] [facility] [address] 2021-01-03 2021-01-03 Boot Maker 2, Adc Lab [facility] 1.2.840.114 [id number] Univers 08:48:03 09:03:03 Visit Angelica Carvalho 350.1.13. 10 ity of [place].2.[place] [phone] Co dical nal 353 [facility] 2021-01-03 2021-01-03 Outpatient R MAIA [facility] [id number] Univers 08:45:00 08:45:00 ANGELICA ortiz [facility] 2021-01-03 2021-01-03 Orders Doctor SAEED 1.2.840.114 [id number] Univers 00:00:00 00:00:00 Only Unassigned, WENDY 350.1.13.10 ity of [place] [facility] 4.2.7.2.686 Timothy as [phone] [address] 2020-12-06 2020-12-06 Orders Doctor CHRISTOPHE 1.2.840.114 [id number] Univers 00:00:00 00:00:00 Only Unassigned, WENDY 350.1.13.10 ity of [place] [facility] 4.2.7.2.686 Timothy as [id number] [address] 2020-12-05 2020-12-05 Telephone [facility] 1.2.721.903 [id number] Univers 00:00:00 00:00:00 [facility] 350.1.13.10 it y of [place] 4.2.7.2.686 Timothy as Professio [phone] [facility] [address] Office [facility] One 2020-12-04 2020-12-04 Office [facility] 1.2.840.114 [id number] Univers 13:41:02 14:11:02 Visit [facility] 350.1.13.10 it y of [place] 4.2.7.2.686 Timothy as Professio [phone] [facility] nal [address] Office [facility] One 2020-12-04 2020-12-04 Outpatient R DANIEL [facility] [id number] Univers 13:45:00 13:45:00 RAMESH ity of [facility] 2020-11-27 2020-11-27 Office [facility] 1.2.840.114 [id number] Univers 09:47:09 10:17:09 Visit Angelica Schreiber 350.1.13.10 it[place] of [place].2.[place] [phone] Co dical nal 059 [facility] 2020-11-27 2020-11-27 Outpatient R MAIA [facility] [id number] Univers 10:00:00 10:00:00 SENDOLGA ity of [facility] 2020-11-22 2020-11-22 Transition Mirna Bowers 1.2.840.114 [id number] Univers 00:00:00 00:00:00 of Care Ileana Agosto 350.1.13.10 ity of [place].2.7.2.686 [place] [phone] [facility] [address] 2020-11-18 2020-11-21 Hospital Daysi Waldrop [facility] 1.2.840. 114 [id number] Univers 11:07:00 17:32:00 Encounter Shemar Briggs 350.1.13.10 ity of [place].2.7.2.686 [place] [phone] [facility] [address] 2020-11-18 2020-11-18 Nurse Nurse, [facility] 1.2 .840.114 [id number] Univers 10:50:55 11:03:28 Visit Dipak [facility] 350.1.13.10 ity of [place] 4.2.7.2.686 [place] Professio [phone] Co dical nal [address] One 2020-11-18 2020-11-18 Urgent Lilia Menendez [facility] 1.2.840.11 [id number] Univers 10:00:00 10:20:00 Care [facility] 350.1.13.10 ity of [place] 4.2.7.2.686 [place] Professio [phone] Co dical nal [address] Office [address] One 2020-11-18 2020-11-18 Outpatient R [facility] [id number] Univers 10:00:00 10:00:00 ity of [facility] 2020-11-13 2020-11-13 Urgent Provider, [facility] 1.2.840.114 [id number] Univers 18:52:39 19:12:39 Care VincentGet 2 It Sales 350.1.13.10 ity of [place] 4.2.7.2.686 [facility] Professio [phone] Co dical nal [address] Office [address] One 2020-11-13 2020-11-13 Outpatient R [facility] [id number] Univers 19:00:00 19:00:00 ity of [facility] 2020-10-25 2020-10-25 Outpatient R DANIEL [facility] [id number] Univers 09:30:00 09:30:00 RAMESH [facility] 2020-10-25 2020-10-25 Office Daniel [facility] 1.2.840.114 [id number] Univers 09:13:39 09:28:39 Visit [facility] 350.1.13.10 it y of [place] 4.2.7.2.686 Timothy as Professio [phone] [address] Office Building One 2020-06-07 2020-06-07 Outpatient R DANNY [facility] [id number] Univers 15:00:00 15:00:00 LI [facility] 2020-05-10 2020-05-10 Outpatient R DANNY [facility] [id number] Univers 15:20:00 15:20:00 LI [facility] 2020-05-10 2020-05-10 Outpatient R DANNY [facility] [id number] Univers 15:20:00 15:20:00 LI [facility] 2020-03-01 2020-03-01 Telephone [facility] 1.2.784.[id number] [facility] 00:00:00 00:00:00 [facility] 350.1.13.10 it y of [place] 4.2.7.2.686 Timothy as Professio [phone] [address] Office Building One 2020-01-17 2020-01-17 Office [facility] 1.2.840.114 [id number] 14:13:15 15:18:10 Visit [facility] 350.1.13.10 [place] 4.2.7.2.686 Professio [phone] [place] [address] Office [address] One 2020-01-17 2020-01-17 Office [facility] 1.2.840.114 [id number] Univers 14:13:15 15:18:10 Visit [facility] 350.1.13.10 it y of [place] 4.2.7.2.686 Timothy as Professio [phone] [address] Office Building One 2020-01-17 2020-01-17 Outpatient Izzy REY [facility] [id number] Univers 14:15:00 14:15:00 RAMESH angel [facility] 2020-01-03 2020-01-03 Transition Mirna Pelletier 1.2.840.114 [id number] Univers 00:00:00 00:00:00 of Care Oral Jallohy 350.1.13.10 ity of [place].2.[place] [phone] [facility] [address] 2019-12-31 2020-01-01 Emergency Megan Ozuna [facility] 1.2.8 40.114 [id number] Univers 10:35:00 09:46:00 Eric Colbert 350.1.13.10 ity of [place] 4[place].2.686 [place] [phone] [facility] [address] 2019-12-30 2019-12-30 Outpatient Izzy REY [facility] [id number] Univers 15:15:00 15:15:00 RAMESH ortiz [facility] 2019-12-20 2019-12-20 [facility] 1.2.840.114 [id number] Univers 00:00:00 00:00:00 [facility] 350.1.13.10 it y of [place] 4.2.7.2.686 [place] as Professio [phone] [place] [address] [address] [facility] 2019-12-19 2019-12-19 [facility] 1.2.840.114 [id number] Univers 12:49:46 23:59:00 Encounter sarah Emmanuel [id number] [place] [id number] [facility] [address] 2019-12-19 2019-12-19 Urgent Provider, [facility] 1.2.840.114 [id number] Univers 12:15:08 13:02:01 Care Isabella [facility] 350.1.13.10 ity of [place] 4.2.7.2.686 [place] as Professio [id number] Me dical nal [address] [facility] 2019-12-19 2019-12-19 Outpatient R TOMI, [facility] [id number] Univers 12:20:00 12:20:00 KAMERON ortiz of [facility] 2018-11-12 2018-12-27 [facility] Cardiac [facility] 1.2. 840.114 [id number] Univers 08:15:22 11:13:48 Visit Gopi Suazo 350.1.13.10 [place] [phone] [facility] 060 [facility] 2018-11-17 2018-12-15 [facility], [facility] 1.2. [id number] [id number] Univers 08:21:55 10:35:11 Visit Gopi Suazo 350.1.13.10 ity of [place] [phone] [place] [id number] [facility] 2018-11-17 2018-11-17 Orders Doctor CHRISTOPHE [id number] Univers 00:00:00 00:00:00 Only Unassigned, WENDY 350.1.13.10 ity of [place] [facility] 4.2.7.2.686 Timothy as [phone] [address] Results Test Description Test Time Test Comments Results Result Comments Source CBC WITH DIFF 2022-04-08 14:22:17 Test Item Value Reference Range Interpretation Comme nts WBC (test code = 6690-2) See_Comment LL [A utomated message] The system which ge nerated this result transmit marco antonio reference range: 4.20 - 1 0.70 10*3/?L. The reference r louie was not used to interpr et this result as normal/abnor mal. RBC (test code = 789-8) See_Comment L [Au tomated message] The system which ge nerated this result transmit marco antonio reference range: 4.26 - 5 .52 10*6/?L. The reference r louie was not used to interpr et this result as normal/abnor mal. HGB (test code = 718-7) 8.5 g/dL 12.2-16.4 L HCT (test code = 4544-3) 27.0 % 38.4-49.3 L MCV (test code = 787-2) 93.1 fL 81.7-95.6 MCH (test code = 785-6) 29.3 pg 26.1-32.7 MCHC (test code = 786-4) 31.5 g/dL 31.2-35.0 RDW-SD (test code = 09162-1) 56.4 fL 38.5-51.6 H RDW-CV (test code = 788-0) 16.6 % 12.1-15.4 H PLT (test code = 777-3) See_Comment L [Au tomated message] The system which [employer] nerated this result transmit marco antonio reference range: 150 - 32 8 10*3/?L. The reference range was not used to interpret th is result as normal/abnormal . MPV (test code = 31058-6) 11.3 fL 9.8-13.0 IPF % (test code = 3.8 % 1.2-10.7 Platelet count measured by 0180775872) fluorescence me thod. NRBC/100 WBC (test code = See_Comment [ Automated message] The 4556725936) system which [employer] nerated this result transmit marco antonio reference range: 0.0 - 10 .0 /100 WBCs. The reference r louie was not used to interpr et this result as normal/abnor mal. NRBC x10^3 (test code = See_Comment [Au tomated message] The 4991640649) system which [employer] nerated this result transmit marco antonio reference range: 10*3/?L. The reference range was not u sed to interpret this result as normal/abnormal . GRAN MAT (NEUT) % (test code 69.6 % = 770-8) IMM GRAN % (test code = 0.00 % 9380530178) LYMPH % (test code = 736-9) 24.4 % MONO % (test code = 5905-5) 3.0 % EOS % (test code = 713-8) 2.5 % BASO % (test code = 706-2) 0.5 % GRAN MAT x10^3(ANC) (test 1.37 10*3/uL 1.99-6.95 L code = 1007821898) IMM GRAN x10^3 (test code = 0.00-0.06 9923639964) LYMPH x10^3 (test code = 0.48 10*3/uL 1.09-3.23 L 731-0) MONO x10^3 (test code = 0.06 10*3/uL 0.36-1.02 L 742-7) EOS x10^3 (test code = 0.05 10*3/uL 0.06-0.53 L 711-2) BASO x10^3 (test code = 0.01-0.09 704-7) BHASKAR CELLS (test code = 2+ See_Comment A [Au tomated message] The 7704-9) system which [employer] nerated this result transmit marco antonio reference range: (none). The reference range was not u sed to interpret this result as normal/abnormal . ELLIPTO/OVAL (test code = 2+ See_Comment A [ Automated message] The 24337-9) system which [employer] nerated this result transmit marco antonio reference range: (none). The reference range was not u sed to interpret this result as normal/abnormal . Lab Interpretation (test Abnormal code = 26138-0) [facility] METABOLIC PANEL (NA, K, CL, CO2, GLUCOSE, BUN, CREATININE, CA)2022-04-08 13:07:44 Test Item Value Reference Range Interpretation Comments NA (test code = 134 mmol/L 135-145 L 6417809017) K (test code = 4.4 mmol/L 3.5-5.0 9087245407) CL (test code = 95 mmol/L 98-108 L 7142759858) CO2 TOTAL (test code = 35 mmol/L 23-31 H 3138205838) AGAP (test code = 2-16 4430141810) BUN (test code = 56 mg/dL 7-23 H 8187991019) GLUCOSE (test code = 91 mg/dL 70-110 8605551407) CREATININE (test code = 2.74 mg/dL 0.60-1.25 H 9162758308) CALCIUM (test code = 8.8 mg/dL 8.6-10.6 9580373573) eGFR (test code = mL/min/1.73m2 6775971329) ANDREA (test code = ANDREA) Association of Glomerular Filtration Rate (GFR) and Staging of Kidney Disease* + --+ --+ ------+| GFR (mL/min/1.73 m2) ?| With Kidney Damage ?| ?Without Kidney Damage+ --------+ --------+ +| ?>90 ?| ?Stage one ?| ? Normal ?+ ---+ ---+ -------+| ?60-89 ?| ?Stage two ?| ? Decreased GFR ? + --+ --+ ------+| ?30-59 ?| ?Stage three ?| ? Stage three ? + --+ --+ ------+| ?15-29 ?| ?Stage four ? | ? Stage four ?+ ---+ ---+ -------+| ?<15 (or dialysis) ? ?| ?Stage five ? | ? Stage five ?+ ---+ ---+ -------+ *Each stage assumes the associated GFR level has been in effect for at least three months. ?Stages 1 to 5, with or without kidney disease, indicate chronic kidney disease. Notes: Determination of stages one and two (with eGFR >59mL/min/1.73 m2) requires estimation of kidney damage for at least three months as defined by structural or functional abnormalities of the kidney, manifested by either:Pathological abnormalities or Markers of kidney damage (including abnormalities in the composition of the blood or urine or abnormalities in imaging tests). Lab Interpretation Abnormal (test code = 22373-0) [facility] CULTURE [id number] 20:01:58 Test Item Value Reference Range Interpretation Comments Blood Culture-Aerobic No organisms No growth Previo us (test code = 51807-0) isolated prelim inary verified result was Culture In Progress on 03/28/2022 at 1701 CSTPreviou s preliminary verified result was No growth a t 24 hours on 03/29/2022 at 1401 CSTPreviou s preliminary verified result was No growth a t 48 hours on 03/30/2022 at 1401 CSTPreviou s preliminary verified result was No growth a t 72 hours on 03/31/2022 at 1401 OPERATIONS DISPATCHER Lab Interpretation Normal (test code = 79891-8) [facility] CULTURE [id number] 20:01:58 Test Item Value Reference Range Interpretation Comments Blood Culture-Aerobic No organisms No growth Previo us (test code = 09435-0) isolated prelim inary verified result was Culture In Progress on 03/28/2022 at 1701 CSTPreviou s preliminary verified result was No growth a t 24 hours on 03/29/2022 at 1401 CSTPreviou s preliminary verified result was No growth a t 48 hours on 03/30/2022 at 1401 CSTPreviou s preliminary verified result was No growth a t 72 hours on 03/31/2022 at 1401 OPERATIONS DISPATCHER Blood No organisms No growth Previous Culture-Anaerobic isolated preliminar y (test code = 96316-6) verifi ed result was Culture In Progress on 03/28/2022 at 1701 CSTPreviou s preliminary verified result was No growth a t 24 hours on 03/29/2022 at 1401 CSTPreviou s preliminary verified result was No growth a t 48 hours on 03/30/2022 at 1401 CSTPreviou s preliminary verified result was No growth a t 72 hours on 03/31/2022 at 1401 OPERATIONS DISPATCHER Lab Interpretation Normal (test code = 80648-0) [facility] WITH [id number] 12:35:41 Test Item Value Reference Range Interpretation Comments WBC (test code = See_Comment LL [Automated 5490-2) message] The sy stem which generated this result transmitted reference range : 4.20 - 10.70 10*3/?L. The reference range was not used to interpret this result as normal/abnormal . RBC (test code = See_Comment L [Automated 059-8) message] The sy stem which generated this result transmitted reference range : 4.26 - 5.52 10*6/?L. The reference range was not used to interpret this result as normal/abnormal . HGB (test code = 8.4 g/dL 12.2-16.4 L 718-7) HCT (test code = 26.5 % 38.4-49.3 L 4544-3) MCV (test code = 93.0 fL 81.7-95.6 787-2) MCH (test code = 29.5 pg 26.1-32.7 785-6) MCHC (test code = 31.7 g/dL 31.2-35.0 786-4) RDW-SD (test code = 58.8 fL 38.5-51.6 H 17970-6) RDW-CV (test code = 17.4 % 12.1-15.4 H 788-0) PLT (test code = See_Comment L [Automated 777-3) message] The sy stem which generated this result transmitted reference range : 150 - 328 10*3/ ?L. The reference r louie was not used to interpret this result as normal/abnormal . MPV (test code = 10.6 fL 9.8-13.0 89946-6) IPF % (test code = 2.6 % 1.2-10.7 Platelet count 9583627326) measured by fluorescence method. NRBC/100 WBC (test See_Comment [Automat ed code = 5976690786) message] The system which generated this result transmitted reference range : 0.0 - 10.0 /100 WBCs. The refer ence range was not u sed to interpret th is result as normal/abnormal . NRBC x10^3 (test code See_Comment [Auto mated = 8645155861) message] The s ystem which generated this result transmitted reference range : 10*3/?L. The reference range was not used to interpret this result as normal/abnormal . GRAN MAT (NEUT) % 71.8 % (test code = 770-8) IMM GRAN % (test code 0.60 % = 6985088256) LYMPH % (test code = 22.0 % 736-9) MONO % (test code = 3.4 % 5905-5) EOS % (test code = 1.1 % 713-8) BASO % (test code = 1.1 % 706-2) GRAN MAT x10^3(ANC) 1.27 10*3/uL 1.99-6.95 L (test code = 7617335790) IMM GRAN x10^3 (test 0.00-0.06 code = 5659187024) LYMPH x10^3 (test code 0.39 10*3/uL 1.09-3.23 L = 731-0) MONO x10^3 (test code 0.06 10*3/uL 0.36-1.02 L = 742-7) EOS x10^3 (test code = 0.06-0.53 L 711-2) BASO x10^3 (test code 0.01-0.09 = 704-7) ELLIPTO/OVAL (test 2+ See_Comment A [Automat ed code = 59249-4) message] The system which generated this result transmitted reference range : (none). The reference range was not used to interpret this result as normal/abnormal . Lab Interpretation Abnormal (test code = 82141-4) [id number] 12:24:08 Test Item Value Reference Range Interpretation Comments NT-proBNP (test code 5560 pg/mL See_Comment H [Autom ated = 6076947171) message] The system which generated this result transmitted reference range : <=450. The reference range was not used to interpret this result as normal/abnormal . ANDREA (test code = ANDREA) Biotin has been reported to cause a negative bias, interpret results relative to patient's use of biotin. Lab Interpretation Abnormal (test code = 43467-8) [facility] (NA, K, CL, CO2, GLUCOSE, BUN, CREATININE, CA)2022-04-02 12:18:29 Test Item Value Reference Range Interpretation Comments NA (test code = 137 mmol/L 135-145 5371987957) K (test code = 3.2 mmol/L 3.5-5.0 L 0681662908) CL (test code = 103 mmol/L 98-108 4779678081) CO2 TOTAL (test code = 24 mmol/L 23-31 5321330743) AGAP (test code = 2-16 0985294258) BUN (test code = 52 mg/dL 7-23 H 5562371065) GLUCOSE (test code = 100 mg/dL 70-110 8215991958) CREATININE (test code = 3.14 mg/dL 0.60-1.25 H 6396663591) CALCIUM (test code = 8.0 mg/dL 8.6-10.6 L 9077867060) eGFR (test code = mL/min/1.73m2 6254514253) ANDREA (test code = ANDREA) Association of Glomerular Filtration Rate (GFR) and Staging of Kidney Disease* + --+ --+ ------+| GFR (mL/min/1.73 m2) ?| With Kidney Damage ?| ?Without Kidney Damage+ --------+ --------+ +| ?>90 ?| ?Stage one ?| ? Normal ?+ ---+ ---+ -------+| ?60-89 ?| ?Stage two ?| ? Decreased GFR ? + --+ --+ ------+| ?30-59 ?| ?Stage three ?| ? Stage three ? + --+ --+ ------+| ?15-29 ?| ?Stage four ? | ? Stage four ?+ ---+ ---+ -------+| ?<15 (or dialysis) ? ?| ?Stage five ? | ? Stage five ?+ ---+ ---+ -------+ *Each stage assumes the associated GFR level has been in effect for at least three months. ?Stages 1 to 5, with or without kidney disease, indicate chronic kidney disease. Notes: Determination of stages one and two (with eGFR >59mL/min/1.73 m2) requires estimation of kidney damage for at least three months as defined by structural or functional abnormalities of the kidney, manifested by either:Pathological abnormalities or Markers of kidney damage (including abnormalities in the composition of the blood or urine or abnormalities in imaging tests). Lab Interpretation Abnormal (test code = 50115-9) [facility] METABOLIC PANEL (NA, K, CL, CO2, GLUCOSE, BUN, CREATININE, CA)2022-04-01 11:27:32 Test Item Value Reference Range Interpretation Comments NA (test code = 138 mmol/L 135-145 9436959527) K (test code = 3.2 mmol/L 3.5-5.0 L 5041803218) CL (test code = 104 mmol/L 98-108 0925584844) CO2 TOTAL (test code = 24 mmol/L 23-31 2865957862) AGAP (test code = 2-16 4023879783) BUN (test code = 55 mg/dL 7-23 H 5443278791) GLUCOSE (test code = 98 mg/dL 70-110 5475601715) CREATININE (test code = 3.33 mg/dL 0.60-1.25 H 4299601930) CALCIUM (test code = 8.1 mg/dL 8.6-10.6 L 9307194260) eGFR (test code = mL/min/1.73m2 0484679064) ANDREA (test code = ANDREA) Association of Glomerular Filtration Rate (GFR) and Staging of Kidney Disease* + --+ --+ ------+| GFR (mL/min/1.73 m2) ?| With Kidney Damage ?| ?Without Kidney Damage+ --------+ --------+ +| ?>90 ?| ?Stage one ?| ? Normal ?+ ---+ ---+ -------+| ?60-89 ?| ?Stage two ?| ? Decreased GFR ? + --+ --+ ------+| ?30-59 ?| ?Stage three ?| ? Stage three ? + --+ --+ ------+| ?15-29 ?| ?Stage four ? | ? Stage four ?+ ---+ ---+ -------+| ?<15 (or dialysis) ? ?| ?Stage five ? | ? Stage five ?+ ---+ ---+ -------+ *Each stage assumes the associated GFR level has been in effect for at least three months. ?Stages 1 to 5, with or without kidney disease, indicate chronic kidney disease. Notes: Determination of stages one and two (with eGFR >59mL/min/1.73 m2) requires estimation of kidney damage for at least three months as defined by structural or functional abnormalities of the kidney, manifested by either:Pathological abnormalities or Markers of kidney damage (including abnormalities in the composition of the blood or urine or abnormalities in imaging tests). Lab Interpretation Abnormal (test code = 95792-3) [facility] WITH [id number] 10:50:00 Test Item Value Reference Range Interpretation Comments WBC (test code = See_Comment L [Automated 2790-2) message] The sy stem which generated this result transmitted reference range : 4.20 - 10.70 10*3/?L. The reference range was not used to interpret this result as normal/abnormal . RBC (test code = See_Comment L [Automated 239-8) message] The sy stem which generated this result transmitted reference range : 4.26 - 5.52 10*6/?L. The reference range was not used to interpret this result as normal/abnormal . HGB (test code = 8.7 g/dL 12.2-16.4 L 718-7) HCT (test code = 27.8 % 38.4-49.3 L 4544-3) MCV (test code = 91.7 fL 81.7-95.6 787-2) MCH (test code = 28.7 pg 26.1-32.7 785-6) MCHC (test code = 31.3 g/dL 31.2-35.0 786-4) RDW-SD (test code = 58.6 fL 38.5-51.6 H 44562-5) RDW-CV (test code = 17.4 % 12.1-15.4 H 788-0) PLT (test code = See_Comment L [Automated 777-3) message] The sy stem which generated this result transmitted reference range : 150 - 328 10*3/ ?L. The reference r louie was not used to interpret this result as normal/abnormal . MPV (test code = 10.4 fL 9.8-13.0 30945-5) IPF % (test code = 3.2 % 1.2-10.7 Platelet count 4628309001) measured by fluorescence method. NRBC/100 WBC (test See_Comment [Automat ed code = 6298916266) message] The system which generated this result transmitted reference range : 0.0 - 10.0 /100 WBCs. The refer ence range was not u sed to interpret th is result as normal/abnormal . NRBC x10^3 (test code See_Comment [Auto mated = 5315168287) message] The s ystem which generated this result transmitted reference range : 10*3/?L. The reference range was not used to interpret this result as normal/abnormal . GRAN MAT (NEUT) % 76.0 % (test code = 770-8) IMM GRAN % (test code 0.40 % = 8121050895) LYMPH % (test code = 18.9 % 736-9) MONO % (test code = 2.6 % 5905-5) EOS % (test code = 1.7 % 713-8) BASO % (test code = 0.4 % 706-2) GRAN MAT x10^3(ANC) 1.77 10*3/uL 1.99-6.95 L (test code = 1875423800) IMM GRAN x10^3 (test 0.00-0.06 code = 1282971770) LYMPH x10^3 (test code 0.44 10*3/uL 1.09-3.23 L = 731-0) MONO x10^3 (test code 0.06 10*3/uL 0.36-1.02 L = 742-7) EOS x10^3 (test code = 0.04 10*3/uL 0.06-0.53 L 711-2) BASO x10^3 (test code 0.01-0.09 = 704-7) BHASKAR CELLS (test code 2+ See_Comment A [Auto mated = 7790-9) message] The sy stem which generated this result transmitted reference range : (none). The reference range was not used to interpret this result as normal/abnormal . ELLIPTO/OVAL (test 2+ See_Comment A [Automat ed code = 88170-6) message] The system which generated this result transmitted reference range : (none). The reference range was not used to interpret this result as normal/abnormal . Lab Interpretation Abnormal (test code = 06412-8) [facility] 02:22:38 Test Item Value Reference Range Interpretation Comments Height (test code = in 1095598627) Weight (test code = lbs 2450690273) Systolic BP (test code = mmHg 1917502586) Diastolic BP (test code mmHg = 1673758025) Heart Rate (test code = bpm 6473317265) BSA (test code = 2.07 m2 7242826234) LVOT diameter (test code 2.05 cm = 9800694198) LVOT area (test code = 3.30 cm2 8124265868) Ao root diam (test code 3.50 cm = 6876861003) Aortic root (test code = 3.5 cm 5559386340) Ao root annulus (test 3.5 cm code = 4655138250) LA size (test code = 5.4 cm 8867786921) ACS (test code = 1.56 cm 5596340843) PV PEAK VELOCITY (test 77.6 cm/s code = 4772832145) PV peak gradient (test mmHg code = 6387057861) MV E-F slope (test code 26.20 cm/s = 9726563630) MV Peak E Pro (test code 77.6 cm/s = 4141194732) MV valve area p 1/2 3.40 cm2 method (test code = 9451272760) MV dec slope (test code 343.30 cm/s2 = 9382025721) MV P1/2t max pro (test 75.20 cm/s code = 4694323364) MV Peak A Pro (test code 68.4 cm/s = 3396791034) E/A ratio (test code = ratio 3203604448) MR max PG (test code = 77.00 mm[Hg] 3741304352) MR max pro (test code = 438.70 cm/s 0329825210) Mr max pro (test code = 438.7 m/s 2311553177) LVOT stroke volume (test 72.10 cm3 code = 4589202940) LVOT peak pro (test code 97.3 cm/s = 5595466437) LVOT mn grad (test code mmHg = 2895753194) AV LVOT peak gradient mmHg (test code = 6962840829) LVOT peak VTI (test code 21.9 cm = 3349184977) LV V1 mean (test code = 56.10 cm/s 6205667555) Aortic valve mean 133.2 cm/s velocity (test code = 4069593906) Ao peak pro (test code = 225.5 cm/s 4689683588) Ao VTI (test code = 48.2 cm 5912823266) AV area by cont VTI 1.5 cm2 (test code = 7717979227) AV area peak pro (test 1.4 cm2 code = 4312687652) Ao max PG (test code = 20.30 mm[Hg] 3608808798) AV peak gradient (test mmHg code = 7770481505) AV valve area (test code 1.50 cm2 = 1038141947) AV mean gradient (test mmHg code = 9259136230) AV regurgitation 493.9 ms pressure 1/2 time (test code = 9393886001) AI dec slope (test code 101.00 cm/s2 = 9521376030) AI max pro (test code = 170.40 cm/s 6657953217) AI max PG (test code = 11.60 mm[Hg] 0136510017) LVIDD (test code = 5.50 cm 6090520829) Left Ventricular End 147.0 mL Diastolic Volume by Teichholz Method (test code = 9645729) IVS (test code = 1.20 cm 8083482098) Interventricular Septum 1.20 cm Diastolic Thickness by 2D (test code = 5781718) LVPWD (test code = 1.17 cm 7038495746) PW (test code = 1.17 cm 0.6-1.9 9193031328) EF(Teich) (test code = 37.50 % 4477374870) LVIDS (test code = 4.50 cm 9929861629) Left Ventricular End 91.9 mL Systolic Volume by Teichholz Method (test code = 7900636) FS (test code = 18 % 3648874131) EF - 2D (test code = 37.50 % 65519961) TR Peak Pro (test code = 287.4 cm/s 4862683419) Triscuspid Valve mmHg Regurgitation Peak Gradient (test code = 1113057480) Radiology Study observation (narrative) (test code = 80490-1) ANDREA (test code = ANDREA) ?Left?Ventricle: Left ventricle size is normal. Mildly increased wall thickness. Regional wall motion abnormalities present. ?. There is severe posterior wall hypokinesis. There is severe inferior wall hypokinesis. Moderately reduced systolic function with a visually estimated EF of 30 - 35%. There is restrictive diastolic dysfunction. ?Right?Ventricle: Right ventricle is mildly dilated. Mildly reduced systolic function. ?Mitral?Valve: Mild transvalvular regurgitation. ?Left?Atrium: Left atrium is mildly dilated. ?Right?Atrium: Right atrium is mildly dilated. ?Tricuspid?Valve: Moderate to severe transvalvular regurgitation. Right ventricular systolic pressure is 45-50 mmHg. ?RA pressure is 15-20 mmHg. ?Aorta: Mildly enlarged ascending aorta 3.1cm. ?Aortic?Valve: Mild transvalvular regurgitation. Left VentricleLeft ventricle size is normal. Mildly increased wall thickness. Regional wall motion abnormalities present. . There is severe posterior wall hypokinesis. There is severe inferior wall hypokinesis. Moderately reduced systolic function with a visually estimated EF of 30 - 35%. There is restrictive diastolic dysfunction.Right VentricleRight ventricle is mildly dilated. Mildly reduced systolic function.Left AtriumLeft atrium is mildly dilated.Right AtriumRight atrium is mildly dilated.IVC/SVCRA pressure is 15-20 mmHg.Mitral ValveMildly calcified leaflets. Mild mitral annular calcification. Mild transvalvular regurgitation.Tricusp id ValveTricuspid valve structure is grossly normal. Moderate to severe transvalvular regurgitation. Right ventricular systolic pressure is 45-50 mmHg. RA pressure is 15-20 mmHg.Aortic ValveAortic valve opens well. Moderately calcified cusps. Mild annular calcification. Mild transvalvular regurgitation.Pulmoni c ValveNot well visualized.Ascending AortaMildly enlarged ascending aorta 3.1cm.PericardiumNo pericardial effusion.Study DetailsStudy quality was adequate. A complete echocardiogram was performed using 2D, color flow Doppler and spectral Doppler. 5 mL of Lumason ultrasound enhancing agent used. [facility] [id number] 00:28:58 Test Item Value Reference Range Interpretation Comments FERRITIN (test code = 29.7 ng/mL 18.0-464.0 4040936456) ANDREA (test code = ANDREA) Biotin has been reported to cause a negative bias, interpret results relative to patient's use of biotin. Lab Interpretation (test Normal code = 00466-5) [facility] [id number] 00:02:34 Test Item Value Reference Range Interpretation Comments IRON (test code = 2386194306) 64 ug/dL 50-160 TIBC (test code = 5514513399) 335 ug/dL 250-410 % FE SAT (test code = 2196070477) 19 % 20-50 L Lab Interpretation (test code = Abnormal 09120-8) [facility]2022-[facility]-24 23:53:12 Test Item Value Reference Range Interpretation Comments MAGNESIUM (test code = 7795720896) 2.9 mg/dL 1.7-2.4 H Lab Interpretation (test code = Abnormal 79793-4) [facility]2022-[facility]-24 23:53:12 Test Item Value Reference Range Interpretation Comments PHOSPHORUS (test code = 2448651784) 4.5 mg/dL 2.5-5.0 Lab Interpretation (test code = Normal 51154-9) [facility] WITH [id number] 18:50:48 Test Item Value Reference Range Interpretation Comments WBC (test code = See_Comment L [Automated 6690-2) message] The sy stem which generated this result transmitted reference range : 4.20 - 10.70 10*3/?L. The reference range was not used to interpret this result as normal/abnormal . RBC (test code = See_Comment L [Automated 789-8) message] The sy stem which generated this result transmitted reference range : 4.26 - 5.52 10*6/?L. The reference range was not used to interpret this result as normal/abnormal . HGB (test code = 9.9 g/dL 12.2-16.4 L 718-7) HCT (test code = 31.6 % 38.4-49.3 L 4544-3) MCV (test code = 92.9 fL 81.7-95.6 787-2) MCH (test code = 29.1 pg 26.1-32.7 785-6) MCHC (test code = 31.3 g/dL 31.2-35.0 786-4) RDW-SD (test code = 62.6 fL 38.5-51.6 H 65213-4) RDW-CV (test code = 18.1 % 12.1-15.4 H 788-0) PLT (test code = See_Comment L [Automated 777-3) message] The sy stem which generated this result transmitted reference range : 150 - 328 10*3/ ?L. The reference r louie was not used to interpret this result as normal/abnormal . MPV (test code = 10.3 fL 9.8-13.0 72956-6) IPF % (test code = 2.9 % 1.2-10.7 Platelet count 4179141157) measured by fluorescence method. NRBC/100 WBC (test See_Comment [Automat ed code = 3686787892) message] The system which generated this result transmitted reference range : 0.0 - 10.0 /100 WBCs. The refer ence range was not u sed to interpret th is result as normal/abnormal . NRBC x10^3 (test code See_Comment [Auto mated = 2736021641) message] The s ystem which generated this result transmitted reference range : 10*3/?L. The reference range was not used to interpret this result as normal/abnormal . GRAN MAT (NEUT) % 78.5 % (test code = 770-8) IMM GRAN % (test code 0.30 % = 5933834215) LYMPH % (test code = 15.9 % 736-9) MONO % (test code = 3.9 % 5905-5) EOS % (test code = 1.1 % 713-8) BASO % (test code = 0.3 % 706-2) GRAN MAT x10^3(ANC) 2.81 10*3/uL 1.99-6.95 (test code = 8477479451) IMM GRAN x10^3 (test 0.00-0.06 code = 0443624695) LYMPH x10^3 (test code 0.57 10*3/uL 1.09-3.23 L = 731-0) MONO x10^3 (test code 0.14 10*3/uL 0.36-1.02 L = 742-7) EOS x10^3 (test code = 0.04 10*3/uL 0.06-0.53 L 711-2) BASO x10^3 (test code 0.01-0.09 = 704-7) BHASKAR CELLS (test code 2+ See_Comment A [Auto mated = 7790-9) message] The sy stem which generated this result transmitted reference range : (none). The reference range was not used to interpret this result as normal/abnormal . ELLIPTO/OVAL (test 2+ See_Comment A [Automat ed code = 45828-5) message] The system which generated this result transmitted reference range : (none). The reference range was not used to interpret this result as normal/abnormal . REACT LYMPHS (test Rare code = 2018139993) Lab Interpretation Abnormal (test code = 49186-5) [facility] [id number] 18:36:00 Test Item Value Reference Interpretation Comments Range TROPONIN I (test 0.011 ng/mL See_Comment [Automated code = 3932098079) message] The system which generated this result transmitted reference range : <=0.034. The reference range was not used to interpret this result as normal/abnormal . ANDREA (test code = Reference (Normal) ANDREA) Range (defined by the 99th percentile reference limit): <= 0.034 ng/mL Note: Cardiac troponin begins to rise 3-4 hours after the onset of ischemia. Repeat in 4-6 hours if the sample was drawn within 3-4 hours of the onset of the symptom and found normal. Diagnosis of myocardial injury is made with acute changes in cTn concentrations with at least one serial sample above the 99th percentile upper reference limit (URL), taken together with the patient's clinical presentation. Biotin has been reported to cause a negative bias, interpret results relative to patient's use of biotin. Lab Interpretation Normal (test code = 70002-0) [facility] [id number] 18:32:43 Test Item Value Reference Range Interpretation Comments NT-proBNP (test code 5210 pg/mL See_Comment H [Autom ated = 0363780440) message] The system which generated this result transmitted reference range : <=450. The reference range was not used to interpret this result as normal/abnormal . ANDREA (test code = ANDREA) Biotin has been reported to cause a negative bias, interpret results relative to patient's use of biotin. Lab Interpretation Abnormal (test code = 04115-7) [facility]OL[facility] PAN[facility] (15089)2022-03-28 18:24:00 Test Item Value Reference Range Interpretation Comments NA (test code = 138 mmol/L 135-145 5169239975) K (test code = 4.7 mmol/L 3.5-5.0 7863770466) CL (test code = 106 mmol/L 98-108 4517428366) CO2 TOTAL (test code = 18 mmol/L 23-31 L 8355650884) AGAP (test code = 2-16 5997414631) BUN (test code = 57 mg/dL 7-23 H 4386938318) GLUCOSE (test code = 96 mg/dL 70-110 2278211515) CREATININE (test code = 3.38 mg/dL 0.60-1.25 H 1060043854) TOTAL BILI (test code = 0.6 mg/dL 0.1-1.4 0335047418) CALCIUM (test code = 8.5 mg/dL 8.6-10.6 L 9357812438) T PROTEIN (test code = 7.4 g/dL 6.3-8.2 2748867918) ALBUMIN (test code = 3.6 g/dL 3.5-5.0 3439010496) ALK PHOS (test code = 112 U/L 34-122 6913411142) ALTv (test code = 12 U/L 5-50 1742-6) AST(SGOT) (test code = 25 U/L 13-40 8977880897) eGFR (test code = mL/min/1.73m2 1187236670) ANDREA (test code = ANDREA) Association of Glomerular Filtration Rate (GFR) and Staging of Kidney Disease* + --+ --+ ------+| GFR (mL/min/1.73 m2) ?| With Kidney Damage ?| ?Without Kidney Damage+ --------+ --------+ +| ?>90 ?| ?Stage one ?| ? Normal ?+ ---+ ---+ -------+| ?60-89 ?| ?Stage two ?| ? Decreased GFR ? + --+ --+ ------+| ?30-59 ?| ?Stage three ?| ? Stage three ? + --+ --+ ------+| ?15-29 ?| ?Stage four ? | ? Stage four ?+ ---+ ---+ -------+| ?<15 (or dialysis) ? ?| ?Stage five ? | ? Stage five ?+ ---+ ---+ -------+ *Each stage assumes the associated GFR level has been in effect for at least three months. ?Stages 1 to 5, with or without kidney disease, indicate chronic kidney disease. Notes: Determination of stages one and two (with eGFR >59mL/min/1.73 m2) requires estimation of kidney damage for at least three months as defined by structural or functional abnormalities of the kidney, manifested by either:Pathological abnormalities or Markers of kidney damage (including abnormalities in the composition of the blood or urine or abnormalities in imaging tests). Lab Interpretation Abnormal (test code = 64594-8) [facility] [Presence] in Respiratory specimen by ALLISON with probe [id number] 07:34:25 Test Item Value Reference Range Interpretation Comments SARS-CoV-2 (COVID-19) RNA Not detected [Presence] in Respiratory specimen by ALLISON with probe detection (test code = 98599-1) Whether patient is employed in a Unknown healthcare setting (test code = 95294-6) Whether the patient has symptoms Unknown related to condition of interest (test code = 86507-1) Whether the patient was Unknown hospitalized for condition of interest (test code = 78285-3) Whether the patient was admitted Unknown to intensive care unit (ICU) for condition of interest (test code = 18568-4) Whether patient resides in a Unknown congregate care setting (test code = 07605-6) status (test code = Unknown 99469-9) Date and time of symptom onset Unknown (test code = 48757-0) [facility] stress [id number] 15:43:24 Test Item Value Reference Range Interpretation Comments Resting HR (test code = 0008021204) Resting BP (test code 123&59 = 3634563783) Peak MET Achieved (test code = 6458813934) Protocol Name (test Lexiscan code = 6413424506) Time in Exercise 00:01:00 Phase (test code = 9033827776) Max Systolic BP (test code = 9928988249) Max Diastolic BP (test code = 1977981381) Max Heart Rate (test code = 9995640259) Max Predicted Heart Rate (test code = 8681096360) Target HR Formula (220 - Age)*100% (test code = 0041541974) Test Indication (test CHF: code = 6042697457) Arrhy During Ex (test code = 4210273937) ECG Interp Before EX (test code = 6977085168) ECG Interp During Ex (test code = 3337202776) Ex Summary Comment (test code = 1442121838) Overall HR Response to Exercise (test code = 5502318204) Overall BP Response To Exercise (test code = 8051270922) Reason for Protocol Complete Termination (test code = 5752343658) Stress Test Waveform interpreted in Impression (test code report associated with = 8690591881) image study. No interpretation is provided as part of this Stress ECG report.--Electronically Signed By James Jose MD ([id number]), web content editor Bridget Michael ([id number]) on 02/15/2022 10:43:19 AM [facility] [id number] 16:29:49 Test Item Value Reference Range Interpretation Comments Case number (test code = [id number]) Surgical pathology See link below for report (test code = PDF Lab Report 2253) Result status (test code This is Final Report = [id number]) [facility] [id number] [facility] [id number] 15:56:48 Test Item Value Reference Range Interpretation Comments Case number (test code = [id number]) Flow cytometry evaluation See link below for (test code = 6088059) PDF Lab Report [facility] [id number] 17:10:00 Test Item Value Reference Range Interpretation Comments Bone marrow tray (test code = 989) DONE [facility] Pre/Post Op (in AM)2022-02-10 15:22:49 Test Item Value Reference Range Interpretation Comments Ventricular rate (test code = 253) Atrial rate (test code = 255) WV interval (test code = 266) QRSD interval (test code = 260) QT interval (test code = 264) QTC interval (test code = 265) P axis 1 (test code = 267) QRS axis 1 (test code = 268) T wave axis (test code = 270) EKG impression (test Normal sinus code = 273) rhythm-Nonspecific intraventricular block-T wave abnormality, consider lateral ischemia-Abnormal ECG-In automated comparison with ECG of 29-JAN-2022 14:09,-premature ventricular complexes are no longer present- [facility] HospitalActivated clotting [id number] 14:51:00 Test Item Value Reference Range Interpretation Comments Activated clotting time See_Comment H Oper ator Name: Barrie (test code = 5298) David ice ID: [id number] [Autom ated message] The sy stem which generated this result transmit marco antonio reference range : 96 - 152 sec. The reference range was not used to int erpret this result as normal/abnormal . Lab Interpretation (test Abnormal code = 57082-0) [facility], diffusion, [id number] 17:00:07 Test Item Value Reference Range Interpretation Comments FEV1 Pre (test code = 0.85 L 2.04-3.79 5348) FEV1 Predicted (test code = 5302) FEV1 LLN (test code = 5347) FEV1 % Pre of 29 % Predicted (test code = 5308) FVC Pre (test code = 1.65 L 2.88-5.14 5354) FVC Predicted (test code = 5307) FVC LLN (test code = 5353) FVC % Pre of Predicted 41.1 % (test code = 5355) FEV1/FVC % Pre (test 51.94 % 59.58-87.84 code = 5361) FEV1/FVC % Predicted (test code = 5359) FEV1/FVC % LLN (test code = 5360) FEV1/FVC % Pre of 69.8 % Predicted (test code = 5362) FEF 25-75% Pre (test 0.39 L/s 0.77-3.95 code = 5547) FEF 25-75% Predicted (test code = 5546) FEF 25-75% LLN (test code = 5545) FEF 25-75% % Pre of 19.1 % Predicted (test code = 5548) PEF Pre (test code = 2.83 L/s 5.08-9.84 5367) PEF Predicted (test code = 5310) PEF LLN (test code = 5366) PEF % Pre of Predicted 38 % (test code = 5368) DLCO Pre (test code = See_Comment [Auto mated message] 5423) The system [employer] generated this result transmitted ref erence range: 18.03 - 33.34 ml/(min*mmHg). The reference range was not used to interpr et this result as normal/abnormal . DLCO Predicted (test code = 5421) DLCO LLN (test code = 5422) DLCO % Pre of 14.8 % Predicted (test code = 5424) DLCOc Pre (test code = See_Comment [Aut omated message] 1310) The system [employer] generated this result transmitted ref erence range: 18.03 - 33.34 ml/(min*mmHg). The reference range was not used to interpr et this result as normal/abnormal . DLCOc Predicted (test code = 5428) DLCOc LLN (test code = 5429) DLCOc % Pre of 18.2 % Predicted (test code = 5431) DL/VA Pre (test code = See_Comment [Aut omated message] 5437) The system [employer] generated this result transmitted ref erence range: 2.79 - 5 .00 ml/(min*mmHg*L) . The reference range was not used to interpr et this result as normal/abnormal . DL/VA Predicted (test code = 5435) DL/VA LLN (test code = 5436) DL/VA % Pre of 35.1 % Predicted (test code = 5438) KCOc SB Pre (test code See_Comment [Aut omated message] = 5535) The system [employer] generated this result transmitted ref erence range: 2.79 - 5 .00 ml/(min*mmHg*L) . The reference range was not used to interpr et this result as normal/abnormal . KCOc SB Predicted (test code = 5533) KCOc SB LLN (test code = 5534) KCOc SB % Pre of 43.1 % Predicted (test code = 5536) VA SB Pre (test code = 2.74 L 5.23-7.92 5444) VA SB Predicted (test code = 5442) VA SB LLN (test code = 5443) VA SB % Pre of 42 % Predicted (test code = 5445) Hb Pre (test code = g(Hb)/dL 5540) MIP Pre (test code = See_Comment [Autom ated message] 5451) The system [employer] generated this result transmitted ref erence range: 101.54 - 101.54 cmH2O. The refe rence range was not u sed to interpret this result as normal/abnor mal. MIP Predicted (test code = 5449) MIP LLN (test code = 5450) MIP % Pre of Predicted 19.3 % (test code = 5452) MEP Pre (test code = See_Comment [Autom ated message] 5458) The system [employer] generated this result transmitted ref erence range: 85.79 - 170.16 cmH2O. The refe rence range was not u sed to interpret this result as normal/abnor mal. MEP Predicted (test code = 5456) MEP LLN (test code = 5457) MEP % Pre of Predicted 35.2 % (test code = 5459) [facility] 12 [id number] 01:46:16 Test Item Value Reference Range Interpretation Comments Ventricular rate (test code = 253) Atrial rate (test code = 255) WV interval (test code = 266) QRSD interval (test code = 260) QT interval (test code = 264) QTC interval (test code = 265) P axis 1 (test code = 267) QRS axis 1 (test code = 268) T wave axis (test code = 270) EKG impression (test Poor data code = 273) quality-Sinus rhythm with frequent premature ventricular complexes in a pattern of bigeminy-Incomplete left bundle branch block-Nonspecific T wave abnormality-Abnormal ECG-In automated comparison with ECG of 19-MAY-2018 08:14,-premature ventricular complexes are now present-WV interval has decreased-Nonspecific T wave abnormality now evident in Lateral leads- [facility] [id number] 01:38:00 Test Item Value Reference Range Interpretation Comments Urine culture (test SEE COMMENT Bacteriu macho screen code = 0895266) negative. [facility] RNA [Presence] in Respiratory specimen by ALLISON with probe [id number] 23:36:10 Test Item Value Reference Range Interpretation Comments SARS-CoV-2 (COVID-19) RNA Not detected [Presence] in Respiratory specimen by ALLISON with probe detection (test code = 70480-7) Whether patient is employed in a Unknown healthcare setting (test code = 30535-1) Whether the patient has symptoms Unknown related to condition of interest (test code = 55192-3) Whether the patient was Unknown hospitalized for condition of interest (test code = 06208-6) Whether the patient was admitted Unknown to intensive care unit (ICU) for condition of interest (test code = 58302-6) Whether patient resides in a Unknown congregate care setting (test code = 23824-7) status (test code = Unknown 80838-0) Date and time of symptom onset Unknown (test code = 68123-6) [facility] ED Preliminary Interpretation - Not an [id number] 20:04:53 Test Item Value Reference Range Interpretation Comments ANDREA (test code = ANDREA) Reginald Martin MD 02/01/2022 8:41 AM[facility] ED Preliminary Interpretation - Not an OrderPerformed by: Sigrid PerazaeAuthorized by: Reginald Martin MD Interpretation: Interpretation: abnormal Rate: ECG rate assessment: normal Rhythm: Rhythm: sinus rhythm Ectopy: Ectopy: bigeminy and PVCs QRS: QRS axis: NormalConduction: Conduction: normal ST segments: ST segments: Normal Lab Interpretation Abnormal (test code = 31675-9) [facility] [id number] 16:24:37 Test Item Value Reference Range Interpretation Comments POCT Creatinine (test code = 1.8 mg/dL 0.6-1.3 H 0238684521) Lab Interpretation (test code = Abnormal 32029-7) [facility]"
[2022-04-22 12:22] LABS: Absolute Lymphocytes (CBC) 0.4 K/uL (0.7-4.9); Hematocrit 26.2 % (39.6-49.0); Lymphocytes % 14.6 % (15.3-44.8); MCV 90.9 fL (80-100); MPV 7.8 fL (7.6-11.3); RBC Red Blood Cell Count 2.89 M/uL (4.33-5.43)
[2022-04-22 12:59] LABS: Troponin High Sensitivity 16.2 pg/mL (<58.9)
[2022-04-22 13:05] LABS: Potassium 3.7 mmol/L (3.5-5.1)
--- NOTE | 2022-04-22 13:11 | RAD REPORT ---
EXAM DESCRIPTION: Adán Single View04/22/2022 12:48 pm CLINICAL HISTORY: Shortness of breath COMPARISON: none FINDINGS: Abutting left costophrenic sulcus. 2 centimeter lucency lateral to the right hilum. Upper lobe vessels are prominent indicative pulmonary venous hypertension. Heart is mildly to moderately enlarged. Postsurgical changes involve chest IMPRESSION: Blunting left costophrenic sulcus may indicate a small pleural effusion Pulmonary venous hypertension Lucency lateral to the right hilum may represent normal lung surrounded by pulmonary vessels or a cav itary lesion or lung cyst. PA and lateral chest series recommended
--- NOTE | 2022-04-22 13:19 | ER ---
Nurse's Notes [facility] Name: Pavan Vanegas Jr Age: 81 yrs Sex: Male : 1940 Arrival Date: 04/22/2022 Time: 11:34 Bed 18 Private MD: Diagnosis: Heart failure, unspecified;Penis edema;Peripheral edema Presentation: 04/22 11:35 Chief complaint: EMS states: [facility] reports fluid retention in scrotum. Rowan in vc1 place. VS WNL, on 3LNC home O2. Coronavirus screen: At this time, the client does not indicate any symptoms associated with coronavirus-19. Ebola Screen: No symptoms or risks identified at this time. Initial Sepsis Screen: Does the patient meet any 2 criteria? No. Patient's initial sepsis screen is negative. Does the patient have a suspected source of infection? No. Patient's initial sepsis screen is negative. Risk Assessment: Do you want to hurt yourself or someone else? Patient reports no desire to harm self or others. Onset of symptoms was April 22, 2022. 11:35 Method Of Arrival: EMS: [facility] vc1 11:35 Acuity: LAINE 3 vc1 Historical: - Allergies: 11:38 No Known Allergies; vc1 - PMHx: 11:39 CHF; COPD; HTN; PAD; BPH; vc1 - Immunization history:: Adult Immunizations up to date. - Social history:: Smoking status: Patient/guardian denies using tobacco, the patient reports quitting approximately 1 years ago. Screenin:44 [facility] ED Fall Risk Assessment (Adult) Score/Fall Risk Level 3 or more points = High vc1 Risk Oriented to surroundings, Maintained a safe environment, Educated pt \T\ family on fall prevention, incl call for assistance when getting out of bed, Assessed \T\ reinforced patient's understanding of fall precautions, Hourly rounding (assess needs \T\ fall precautionary measures) done, Used ambulatory aids as needed (educated on \T\ assisted with). Abuse screen: Denies threats or abuse. Denies injuries from another. Nutritional screening: No deficits noted. Tuberculosis screening: No symptoms or risk factors identified. Fall Risk Total Lopez Fall Scale indicates Low Risk Score (25-44 pts). Fall prevention measures have been instituted. Side Rails Up X 2 Frequent Obs/Assesments occuring As available Patient and Family Educated on Fall Prevention Program and strategies. Assessment: 11:40 General: Appears in no apparent distress. Behavior is calm, cooperative. Pain: Pain vc1 currently is 2 out of 10 on a pain scale. Neuro: Level of Consciousness is awake, alert, obeys commands, Oriented to person, place, time, situation. Cardiovascular: Patient's skin is warm and dry. Respiratory: Respiratory effort is even, unlabored, Respiratory pattern is regular, symmetrical. GI: No signs and/or symptoms were reported involving the gastrointestinal system. : Reports testicular swelling. EENT: No signs and/or symptoms were reported regarding the EENT system. Derm: Skin is pink, warm \T\ dry. Musculoskeletal: No signs and/or symptoms reported regarding the musculoskeletal system. 12:28 Reassessment: Patient appears in no apparent distress at this time. Patient and/or hb family updated on plan of care and expected duration. Pain level reassessed. Patient is alert, oriented x 3, equal unlabored respirations, skin warm/dry/pink. 14:04 Reassessment: Patient appears in no apparent distress at this time. Patient and/or hb family updated on plan of care and expected duration. Pain level reassessed. Patient is alert, oriented x 3, equal unlabored respirations, skin warm/dry/pink. 14:56 Reassessment: Patient appears in no apparent distress at this time. Patient and/or hb family updated on plan of care and expected duration. Pain level reassessed. Patient is alert, oriented x 3, equal unlabored respirations, skin warm/dry/pink. 15:59 Reassessment: Patient appears in no apparent distress at this time. Patient and/or hb family updated on plan of care and expected duration. Pain level reassessed. Patient is alert, oriented x 3, equal unlabored respirations, skin warm/dry/pink. Vital Signs: 11:35 BP 121 / 75; Pulse 71; Resp 15; Temp 98.2; Pulse Ox 100% on 3 lpm NC; Weight 82.55 kg; vc1 Height 5 ft. 11 in. (180.34 cm); Pain 0/10; 12:27 BP 121 / 75; Pulse 69; Resp 17; Pulse Ox 97% on 3 lpm NC; hb 14:04 BP 126 / 55; Pulse 62; Resp 15; Pulse Ox 94% on 3 lpm NC; hb 14:57 BP 127 / 78; Pulse 63; Resp 17; Pulse Ox 97% on 3 lpm NC; hb 15:59 BP 122 / 57; Pulse 67; Resp 15; Pulse Ox 97% on 3 lpm NC; hb 11:35 Body Mass Index 25.38 (82.55 kg, 180.34 cm) vc1 ED Course: 11:34 Patient arrived in ED. ms3 11:34 Wolfgang Palomino DO is Attending Physician. ms3 11:34 Liat Chamorro, RN is Primary Nurse. vc1 11:38 Triage completed. vc1 11:39 Arm band placed on. vc1 11:44 Patient has correct armband on for positive identification. vc1 12:49 XRAY Chest (1 view) In Process Unspecified. EDMS 13:17 Farhat Gupta is Hospitalizing Provider. ms3 13:38 Dhaval Barroso MD is Hospitalizing Provider. ms3 15:51 SARS RAPID Sent. hb Administered Medications: 13:23 Drug: Lasix (furosemide) 60 mg Route: IVP; Site: right antecubital; em6 Outcome: 13:18 Decision to Hospitalize by Provider. ms3 18:18 Patient left the ED. hb Signatures: Dispatcher [employer] EDMS Gina Alfaro RN RN hb Wolfgang Palomino DO DO ms3 Liat Chamorro, RN RN vc1 Stephanie Ramsay RN RN em6 Corrections: (The following items were deleted from the chart) 11:39 11:35 Social history: Smoking status: Patient denies any tobacco usage or history of. vc1 vc1
--- NOTE | 2022-04-22 13:19 | EDPHYS ---
Physician Documentation [facility] Name: Pavan Vanegas Jr Age: 81 yrs Sex: Male : 1940 Arrival Date: 04/22/2022 Time: 11:34 Bed 18 Private MD: ED Physician Wolfgang Palomino HPI: 04/22 12:43 This 81 yrs old Male presents to ER via EMS with complaints of penile swelling. ms3 12:43 The patient presents with swelling, that is severe, of the head of penis, shaft of ms3 penis and scrotum. Onset: The symptoms/episode began/occurred at an unknown time. Modifying factors: The symptoms are alleviated by nothing, the symptoms are aggravated by nothing. Associated signs and symptoms: The patient has no apparent associated signs or symptoms. Severity of symptoms: At their worst the symptoms were moderate, in the emergency department the symptoms are unchanged. Historical: - Allergies: 11:38 No Known Allergies; vc1 - PMHx: 11:39 CHF; COPD; HTN; PAD; BPH; vc1 - Immunization history:: Adult Immunizations up to date. - Social history:: Smoking status: Patient/guardian denies using tobacco, the patient reports quitting approximately 1 years ago. ROS: 12:43 Constitutional: Negative for fever, and chills. ENT: Negative for injury, pain, and ms3 discharge, Neck: Negative for injury, pain, and swelling, Cardiovascular: Negative for chest pain, and palpitations. Respiratory: Negative for shortness of breath, cough, wheezing, and pleuritic chest pain, Abdomen/GI: Negative for abdominal pain, nausea, vomiting, diarrhea, and constipation, Back: Negative for injury and pain, MS/Extremity: Negative for injury and deformity. 12:43 : Positive for penile pain, testicular pain 12:43 All other systems are negative. Exam: 12:30 ECG was reviewed by the Attending Physician. ms3 12:43 Constitutional: This is a well developed, well nourished patient who is awake, alert, ms3 and in no acute distress. Head/Face: Normocephalic, atraumatic. Neck: Trachea midline, no cervical lymphadenopathy. Supple, full range of motion without nuchal rigidity, or vertebral point tenderness. No Meningismus. Chest/axilla: Normal chest wall appearance and motion. Nontender with no deformity. Cardiovascular: Regular rate and rhythm with a normal S1 and S2. No gallops, murmurs, or rubs. Normal PMI, no JVD. No pulse deficits. Respiratory: Lungs have equal breath sounds bilaterally, clear to auscultation and percussion. No rales, rhonchi or wheezes noted. No increased work of breathing, no retractions or nasal flaring. Abdomen/GI: Soft, non-tender, with normal bowel sounds. No distension or tympany. No guarding or rebound. No evidence of tenderness throughout. Skin: Warm, dry with normal turgor. Normal color with no rashes, no lesions, and no evidence of cellulitis. 12:43 : Male external genitalia: swelling, penile, scrotal, that is severe. 12:43 Musculoskeletal/extremity: Extremities: noted in the right leg and left le+ pitting edema. Vital Signs: 11:35 BP 121 / 75; Pulse 71; Resp 15; Temp 98.2; Pulse Ox 100% on 3 lpm NC; Weight 82.55 kg; vc1 Height 5 ft. 11 in. (180.34 cm); Pain 0/10; 12:27 BP 121 / 75; Pulse 69; Resp 17; Pulse Ox 97% on 3 lpm NC; hb 14:04 BP 126 / 55; Pulse 62; Resp 15; Pulse Ox 94% on 3 lpm NC; hb 14:57 BP 127 / 78; Pulse 63; Resp 17; Pulse Ox 97% on 3 lpm NC; hb 15:59 BP 122 / 57; Pulse 67; Resp 15; Pulse Ox 97% on 3 lpm NC; hb 11:35 Body Mass Index 25.38 (82.55 kg, 180.34 cm) vc1 MDM: 11:34 Patient medically screened. ms3 13:18 Data reviewed: vital signs, nurses notes, lab test result(s), EKG, radiologic studies, ms3 and as a result, I will admit patient. Counseling: I had a detailed discussion with the patient and/or guardian regarding: the historical points, exam findings, and any diagnostic results supporting the discharge/admit diagnosis, lab results, radiology results, the need for further work-up and treatment in the hospital. Special discussion: I discussed with the patient/guardian in detail that at this point there is no indication for admission to the hospital. It is understood, however, that if the symptoms persist or worsen the patient needs to return immediately for re-evaluation. ED course: Discussed case with hospitalist and Dr Barroso accepts admission. All questions answered. Patient remains in stable condition while in the Emergency Department.. 04/22 12:04 Order name: Basic Metabolic Panel; Complete Time: 13:13 ms3 04/22 12:04 Order name: CBC with Diff; Complete Time: 13:13 ms3 04/22 12:04 Order name: NT PRO-BNP; Complete Time: 13:13 ms3 04/22 12:04 Order name: Troponin HS; Complete Time: 13:13 ms3 04/22 15:20 Order name: SARS RAPID em1 04/22 16:05 Order name: SARS-COV-2 Antigen Rapid EDMS 04/22 12:04 Order name: XRAY Chest (1 view); Complete Time: 13:13 ms3 04/22 12:04 Order name: EKG; Complete Time: 12:04 ms3 04/22 12:04 Order name: Cardiac monitoring; Complete Time: 12:27 ms3 04/22 12:04 Order name: EKG - Nurse/Tech; Complete Time: 12:27 ms3 04/22 12:04 Order name: IV Saline Lock; Complete Time: 12:27 ms3 04/22 16:27 Order name: Phosphorus EDMS 04/22 16:27 Order name: Magnesium EDMS 04/22 12:04 Order name: Labs collected and sent; Complete Time: 12:27 ms3 04/22 12:04 Order name: O2 Per Protocol; Complete Time: 12:27 ms3 04/22 12:04 Order name: O2 Sat Monitoring; Complete Time: 12:27 ms3 EC:30 Rate is 65 beats/min. Rhythm is regular. MS interval is normal. Clinical impression: ms3 NSR w/ Non-specific ST/T Changes. Interpreted by me. Reviewed by me. Administered Medications: 13:23 Drug: Lasix (furosemide) 60 mg Route: IVP; Site: right antecubital; em6 Disposition Summary: 04/22/22 13:18 Hospitalization Ordered Hospitalization Status: Inpatient Admission ms3 Location: Telemetry/MedSurg (Inpatient) ms3 Condition: Stable ms3 Problem: new ms3 Symptoms: are unchanged ms3 Bed/Room Type: Standard ms3 Provider: Dhaval Barroso(04/22/22 13:38) ms3 Room Assignment: [facility](04/22/22 16:43) em1 Diagnosis - Heart failure, unspecified ms3 - Penis edema ms3 - Peripheral edema ms3 Forms: - Medication Reconciliation Form ms3 - SBAR form ms3 Signatures: Dispatcher [employer] Charles Silver em1 Wolfgang Palomino DO DO ms3 Liat Chamorro RN RN vc1 Stephanie Ramsay RN RN em6 Corrections: (The following items were deleted from the chart) 11:39 11:35 Social history: Smoking status: Patient denies any tobacco usage or history of. vc1 vc1 13:38 13:18 Farhat Gupta ms3 ms3 16:43 13:18 ms3 em1
[2022-04-22] MEDS ORDERED: FUROSEMIDE 20 MG/ 2ML VIAL ONE (13:20)
[2022-04-22] MEDS ORDERED: FUROSEMIDE 40 MG/4 ML VIAL ONE (13:20)
[2022-04-22] MEDS ORDERED: ACETAMINOPHEN 325 MG TABLET PO PRN (15:08)
[2022-04-22] MEDS ORDERED: HYDROCODONE/APAP 5/325 MG TAB PO PRN (15:08)
[2022-04-22] MEDS ORDERED: ONDANSETRON 4 MG/2 ML VIAL IV PRN (15:21)
--- NOTE | 2022-04-22 15:26 | P.HP ---
Certification for Inpatient Patient admitted to: Inpatient With expected LOS: >2 Midnights Patient will require the following post-hospital care: None Practitioner: I am a practitioner with admitting privileges, knowledge of patient current condition, hospital course, and medical plan of care. Services: Services provided to patient in accordance with Admission requirements found in Title 42 Section 412.3 of the Code of Federal Regulations <JeanieTimhank Rader - Last Filed: 04/23/22 00:29> Patient History Date of Service: 04/23/22 Reason for admission: Penile\Abdominal edema History of Present Illness: Patient is a 81-year-old male with a past medical history significant for COPD, CHF, hypertension, PAD, BPH who presents with complaint of swelling to penis, scrotum and abdomen. Patient is a resident of a long-term. Patient is a poor historian and unable to provide accurate history. Per patient's daughter symptoms have been ongoing for the past 2 months but became worse in the last 1 week. Patient reported associated signs and symptoms of bilateral lower extremity edema worse on the left leg. Patient reported that he is on O2 therapy at 3 L/min at the long-term. Patient denies any other signs or symptoms. Symptoms are aggravated or relieved by nothing. Patient was sent to the hospital for medical evaluation. - Past Medical/Surgical History -: HTN -: COPD -: PAD -: BPH Past Surgical History: Reviewed- Non-Contributory - Family History Family History: Reviewed- Non-Contributory - Social History Smoking Status: Former smoker Alcohol use: No CD- Drugs: No Caffeine use: Yes [facility] <Carla Ware - Last Filed: 04/23/22 00:29> Date of Service: 04/23/22 <Dhaval Barroso - Last Filed: 04/23/22 17:24> Allergies hydrocodone Adverse Reaction (Verified 04/22/22 18:36) Nausea/Vomiting Review of Systems General: Unremarkable Eyes: Unremarkable ENT: Unremarkable Respiratory: Unremarkable Cardiovascular: Unremarkable Gastrointestinal: Other (Abdominal swelling ) Genitourinary: Other (Penile\Scrotal edema) Musculoskeletal: Pedal edema, Other (BLE edema) Integumentary: Unremarkable Neurological: As per HPI Lymphatics: Unremarkable <Carla Ware - Last Filed: 04/23/22 00:29> Physical Examination - Physical Exam General: Alert, In no apparent distress, Oriented x3, Cooperative, Mild distress HEENT: Atraumatic, PERRLA, Mucous membr. moist/pink, EOMI, Sclerae nonicteric Neck: Supple, 2+ carotid pulse no bruit, No LAD, Without JVD or thyroid abnormality Respiratory: Diminished, Expiratory wheezes, Inspiratory wheezes Cardiovascular: Regular rate/rhythm, Normal S1 S2, No murmurs, Edema Capillary refill: <2 Seconds Gastrointestinal: Normal bowel sounds, Non-distended, No tenderness Musculoskeletal: No clubbing, No contractures, No tenderness, Swelling Integumentary: No rashes, No breakdown, No significant lesion Neurological: Normal speech, Normal tone, Normal affect Lymphatics: No axilla or inguinal lymphadenopathy External genitalia: Edema - Studies Laboratory Data (last 24 hrs) 04/22/22 12:14: WBC 2.50 L, Hgb 8.7 L, Hct 26.2 L, Plt Count 109 L 04/22/22 12:14: Sodium 140, Potassium 3.7, BUN 50 H, Creatinine 2.64 H, Glucose 105 <Carla Ware E - Last Filed: 04/23/22 00:29> Male Exam - Male Exam Scrotum: Edema Penile exam: Uncircumcised <Carla Ware E - Last Filed: 04/23/22 00:29> Assessment and Plan - Plan --Acute on chronic systolic or diastolic CHF exacerbation. Continue diuresis with Lasix. Cardiology consulted. Echocardiogram pending to assess cardiac structures and functions. Daily weight and strict I/O. Will await further recommendation from instrument repairer helper. --Acute on chronic COPD exacerbation. Continue neb treatment with albuterol\Atrovent and O2 therapy. --Hypertension. Stable. Continue home medications. --BLE edema. Likely secondary to CHF exacerbation. Worse on the left side. Doppler of the left lower extremity pending to rule out DVT. Continue supportive care. --CKD 4. Baseline functions unknown. Nephrology consulted. We will await further recommendations. --Anemia of chronic disease. H&H stable. We will continue to monitor renal functions. --Thrombocytopenia. Unclear etiology. Continue supportive care. --History of PAD. Continue Aspirin -- BPH. Continue home medications when available. --DVT prophylaxis with SCDs. Discharge Plan: [facility] Plan to discharge in: Greater than 2 days - Advance Directives Does patient have a Living Will: No Does patient have a Durable POA for Healthcare: No - Code Status/Comfort Care Code Status Assessed: Yes Physician Review: Patient Assessed, Agree with Above Assessment and Plan Critical Care: No <Carla Ware - Last Filed: 04/23/22 00:29> Physician Review: Patient Assessed, Agree with Above Assessment and Plan <Dhaval Barroso - Last Filed: 04/23/22 17:24>
[2022-04-22 16:05] LABS: SARS-CoV-2 Antigen Rapid Res Negative (Negative)
[2022-04-22 16:26] LABS: Magnesium 2.7 mg/dL (1.6-2.4); Phosphorus 3.2 mg/dL (2.5-4.9)
[2022-04-22 18:35] VITALS: BMI 25.4
--- NOTE | 2022-04-22 20:24 | RAD REPORT ---
EXAM DESCRIPTION: USExtremity Venous Uni Ltd04/22/2022 8:12 pm CLINICAL HISTORY: left leg swelling COMPARISON: None FINDINGS: Left common femoral, superficial femoral, greater saphenous, popliteal and posterior tibi al veins are compressible and demonstrate augmentation. Doppler demonstrates good flow. Grayscale, color and spectral analysis performed on all vessels IMPRESSION: No evidence of deep venous thrombosis involving the left lower extremity.
[2022-04-22] MEDS: ASPIRIN 81 MG CHEWABLE TABLET PO SCH (20:43)
[2022-04-22] MEDS: FUROSEMIDE 40 MG/4 ML VIAL IV SCH (20:47)
[2022-04-22] MEDS ORDERED: HEPARIN 5000 UNIT/ML 1 ML VIAL SQ SCH (21:00)
[2022-04-23] MEDS ORDERED: ALBUTEROL 2.5 MG/3 ML NEB SOL NEB PRN (01:06)
[2022-04-23] MEDS ORDERED: IPRATROPIUM BROM 0.5MG/2.5ML NEB PRN (01:07)
[2022-04-23] MEDS ORDERED: ALBUTEROL 2.5 MG/3 ML NEB SOL NEB SCH (02:00)
[2022-04-23] MEDS ORDERED: IPRATROPIUM BROM 0.5MG/2.5ML NEB SCH (02:00)
[2022-04-23 05:49] LABS: Absolute Lymphocytes (CBC) 0.3 K/uL (0.7-4.9); Hematocrit 24.8 % (39.6-49.0); Lymphocytes % 16.9 % (15.3-44.8); MCV 92.5 fL (80-100); MPV 8.4 fL (7.6-11.3); RBC Red Blood Cell Count 2.69 M/uL (4.33-5.43)
[2022-04-23 06:05] LABS: Potassium 3.6 mmol/L (3.5-5.1)
[2022-04-23] MEDS ORDERED: POTASSIUM CL SA 10 MEQ TAB PO ONE (09:00)
[2022-04-23] MEDS: FUROSEMIDE 40 MG/4 ML VIAL IV SCH ×2 (09:38→16:53)
[2022-04-23] MEDS: ASPIRIN 81 MG CHEWABLE TABLET PO SCH (09:38)
[2022-04-23 10:00] LABS: Specific Gravity 1.013 (1.005-1.030); Urine Bacteria 20-50 /HPF (<20); Urine Bilirubin NEGATIVE (Negative); Urine Blood Negative (Negative); Urine Clarity Turbid (Clear); Urine Color Yellow (Yellow); Urine Glucose NEGATIVE (Negative); Urine Mucus Slight /HPF (None Seen); Urine Protein TRACE (Negative); Urine RBC <5 /HPF (None Seen); Urine Urobilinogen Normal (Normal); Urine WBC Clump Rare /HPF (None Seen); Urine pH 5.5 (5.0-7.0)
--- NOTE | 2022-04-23 16:49 | CON ---
Date of Consultation: 04/23/2022 Reason For Consultation: Shortness of breath and significant swelling. History Of Present Illness: An 81-year-old male with history of COPD, congestive heart failure, hype rtension, peripheral vascular disease, presented with significant shortness of breath, scrotum and lo wer extremity edema as well as abdominal wall edema. The patient denies having any chest pain. No n ausea, vomiting, or diaphoresis. After IV Lasix, he has mobilized a significant amount of fluid and he feels better. Past Medical History: As outlined above in HPI. Medications: Refer to reconciliation sheet for detailed list. Allergies: HYDROCODONE. Family History: No premature coronary artery disease or cancer. Social History: Does not smoke or drink. Does not use any drugs. Review of Systems: All systems reviewed and they were negative except what mentioned in HPI. Physical Examination: Vital Signs: Reviewed. Head and Neck: Pupils are equal, reactive to light. Intact eye movements. Positive JVD elevation t o the earlobes. Lungs: Crackles bilaterally. No accessory muscle use or muscle retraction. Heart: Irregular. No extra sounds. Abdomen: Soft, nontender. Bowel sounds positive. No organomegaly. No masses or hernia. No rigidi ty or rebound. Extremities: Massive edema all the way to his groin 3+. No clubbing or cyanosis. Pulses are dimini shed in both lower extremities, but perfused lower extremities. Neurologic: Alert, awake. No acute focal deficits appreciated. Lymph Nodes: No cervical or axillary lymphadenopathy. Investigations: BUN 49, creatinine 2.5. NT-proBNP is 4502 and troponin is negative. Venous Doppler of lower extremity was normal and the chest x-ray was bilateral pleural effusions and pulmonary veno us hypertension. Assessment And Recommendations: 1.Acute hypoxic respiratory failure due to severe acute congestive heart failure exacerbation. Aggr essive diuresis is recommended. He is responding very well to the current dose of Lasix. Continue c urrent management. BUN, creatinine, electrolytes to be monitored and strict low-salt diet. 2.Severely dilated right ventricle on echo with severe tricuspid valve regurgitation and severe righ t-sided heart failure. Aggressive diuresis as above and the patient will need to have a V/Q scan to rule out pulmonary embolism and in the interim, I recommend a full anticoagulation pending V/Q scan. 3.Acute on chronic renal failure. This is in part due to the venous congestion and significant flui d overload condition, should improve with further IV diuresis. SR/MODL Voice ID: [id number] Report ID: [id number]
--- NOTE | 2022-04-23 17:28 | P.PN ---
Subjective Date of Service: 04/23/22 Chief Complaint: Penile\\Abdominal edema No acute events overnight. He reports significant shortness of breath and orthopnea this morning, unchanged since admission. He denies chest pain or palpitations. He continues to have significant anasarca, but he feels that the furosemide is helping. Review of Systems 10-point ROS is otherwise unremarkable Respiratory: Shortness of Breath Cardiovascular: Orthopnea, Edema Physical Examination - Vital Signs Temperature: 97.4 F Blood Pressure: 142/65 Pulse: 62 Respirations: 16 Pulse Ox (%): 97 - Physical Exam General: Alert, In no apparent distress, Oriented x3 HEENT: Atraumatic, Mucous membr. moist/pink, EOMI, Sclerae nonicteric Neck: JVD distended Respiratory: Crackles/rales (bibasilar) Cardiovascular: Regular rate/rhythm, Normal S1 S2, No gallops, No rubs, Edema (3-4+ involving BLE and penile/scrotum), Systolic murmur Gastrointestinal: Normal bowel sounds, Soft and benign, No tenderness, No rebound, No guarding, Distended Musculoskeletal: No clubbing Integumentary: No rashes Neurological: Normal speech, Cranial nerves 3-12 intact, Normal affect Assessment And Plan - Plan # Acute on Chronic Decompensated Congestive Heart Failure with Unknown Ejection Fraction # Pulmonary Venous Hypertension - Consult Cardiology and spoke with Dr. Garibay - recommendations appreciated - Recommended V/Q scan in 2-3 days once pulmonary edema improves - Advised that we start full-dose enoxaparin (renally dosed) - Ordered transthoracic echocardiogram - Bilateral Doppler = "No evidence of deep venous thrombosis involving the left lower extremity." - Chest x-ray = "blunting left costophrenic sulcus may indicate a small pleural effusion. Pulmonary venous hypertension. Lucency lateral to the right hilum may represent normal lung surrounded by pulmonary vessels or a cavitary lesion or lung cyst. 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
[2022-04-23] MEDS: ENOXAPARIN 80 MG/0.8 ML SQ SCH (18:02)
[2022-04-23] MEDS: CEFTRIAXONE 1,000 MG in NA CHLORIDE 0.9% 50 ML IVPB SCH (18:03)
--- NOTE | 2022-04-23 21:00 | RAD REPORT ---
EXAM DESCRIPTION: RAD - Chest Pa And Lat (2 Views) - 04/23/2022 8:24 pm CLINICAL HISTORY: abnormal 1-view Chest pain. COMPARISON: Chest Single View dated 04/22/2022 FINDINGS: Bilateral pleural effusions are seen, moderate in size on the left. Mild pulmonary edema s uspected. Heart is moderately enlarged. Sternotomy wires present. IMPRESSION: Mild to moderate CHF.
[2022-04-24 05:32] LABS: Absolute Lymphocytes (CBC) 0.4 K/uL (0.7-4.9); Hematocrit 25.3 % (39.6-49.0); MCV 91.8 fL (80-100); MPV 7.7 fL (7.6-11.3); RBC Red Blood Cell Count 2.76 M/uL (4.33-5.43)
[2022-04-24 05:35] LABS: Potassium 3.6 mmol/L (3.5-5.1)
[2022-04-24 06:00] LABS: Blood Morphology Comment NOTED (NOT SEEN); Ovalocytes 2+; Platelet Estimate DECR; White Blood Cell Scan OK (OK)
--- NOTE | 2022-04-24 06:58 | ECHO ---
HEIGHT: 5 ft 11 in WEIGHT: 182 lb 0 oz DATE OF STUDY: 04/23/[address]: Carla Ware 2-DIMENSIONAL: YES M.MODE: YES DOPPLER: YES COLOR FLOW: YES TDS: PORTABLE: YES DEFINITY: BUBBLE STUDY: DIAGNOSIS: CONGESTIVE HEART FAILURE CARDIAC HISTORY: CATHERIZATION: YES SURGERY: YES PROSTHETIC VALVE: NO PACEMAKER: NO MEASUREMENTS (cm) DIASTOLIC (NORMALS) SYSTOLIC (NORMALS) IVSd 1.1 (0.6-1.2) LA Diam 3.4 (1.9-4.0) LVEF 55-60% LVIDd 4.9 (3.5-5.7) LVIDs 4.1 (2.0-3.5) %FS 16% LVPWd 1.1 (0.6-1.2) Ao Diam 2.7 (2.0-3.7) 2 DIMENSIONAL ASSESSMENT: RIGHT ATRIUM: ENLARGED LEFT ATRIUM: NORMAL RIGHT VENTRICLE: DILATED RIGHT VENTRICLE LEFT VENTRICLE: NORMAL TRICUSPID VALVE: SEVERE TRICUSPID REGURGITATION MITRAL VALVE: MILD MITRAL REGURGITATION PULMONIC VALVE: MILD PULMONIC INSUFFICIENCY AORTIC VALVE: THICKENED AORTIC VALVE, NO AORTIC STENOSIS PERICARDIAL EFFUSION: NONE AORTIC ROOT: NORMAL LEFT VENTRICULAR WALL MOTION: DOPPLER/COLOR FLOW: MILD AORTIC INSUFFICIENCY COMMENTS: 1. NORMAL LEFT VENTRICULAR EJECTION FRACTION 55-60% WITH NORMAL WALL MOTION 2. SEVERELY DILATED RIGHT VENTRICLE WITH MILD DYSFUNCTION 3. RIGHT ATRIAL ENLARGEMENT 4. SEVERE TRICUSPID REGURGITATION 5. MILD PULMONIC INSUFFICIENCY/ AORTIC INSUFFICIENCY 6. MILD MITRAL REGURGITATION 7. MODERATE TO SEVERE PULMONARY HYPERTENSION WITH RIGHT VENTRICULAR SYSTOLIC PRESSURE OF 55-60 mmHg AND RIGHT ATRIAL PRESSURE IS GREATER THAN 20 mmHg TECHNOLOGIST: JORGE L LEE
--- NOTE | 2022-04-24 07:22 | P.CNS ---
Date of Consult: 04/22/22 Chief Complaint: Penile\Abdominal edema History of Present Illness: Pt is an 81 y/o male with past medical hx of hypertension, CHF, BPH with chorinc catheter use presenting with complaints of worsening swelling and shortenss of breath for about a week. Currently in [facility] his lasix was stopped which he has been on for a while. Denies any chest pain, shortness of breath, nauseam vomitting. Allergies hydrocodone Adverse Reaction (Verified 04/22/22 18:36) Nausea/Vomiting Home Medications: Aspirin [Aspirin EC 81 MG] 81 tab PO BEDTIME 04/23/22 Atorvastatin Calcium [Lipitor] 40 mg PO BEDTIME 04/23/22 Clopidogrel Bisulfate [Plavix] 75 mg PO DAILY 04/23/22 Diltiazem HCl [Cardizem Cd] 240 mg PO DAILY 04/23/22 Finasteride [Proscar] 5 mg PO DAILY 04/23/22 Isosorbide Mononitrate [Isosorbide Mononitrate ER] 30 mg PO BID 04/23/22 Levothyroxine Sodium [Synthroid] 150 mcg PO DAILY 04/23/22 Magnesium Oxide 250 mg PO DAILY 04/23/22 Metoprolol Succinate [Toprol Xl] 25 mg PO BID 04/23/22 Nitroglycerin [Nitrostat] 0.4 mg SL PRN 04/23/22 Pantoprazole Sodium [Protonix] 40 mg PO DAILY 04/23/22 Ubidecarenone [Coenzyme Q-10] 200 mg PO DAILY 04/23/22 gemfibroziL [Gemfibrozil] 600 mg PO BID 04/23/22 - Past Medical/Surgical History -: HTN -: COPD -: PAD -: BPH - Social History Alcohol use: No CD- Drugs: No Caffeine use: Yes [facility]idence[facility] Review of Systems 10-point ROS is otherwise unremarkable Physical Examination Temp Pulse Resp BP Pulse Ox 97.7 F 76 18 133/62 97 04/24/22 04:00 04/24/22 04:00 04/24/22 04:00 04/24/22 04:00 04/24/22 04:00 General: Alert, In no apparent distress HEENT: Atraumatic, PERRLA, Mucous membr. moist/pink, EOMI, Sclerae nonicteric Respiratory: Diminished Cardiovascular: Edema Gastrointestinal: Normal bowel sounds Musculoskeletal: No tenderness Integumentary: No rashes Neurological: Normal gait, Normal speech, Normal tone, Normal affect Urinary: Rowan catheter External genitalia: Edema Conclusions/Impression: Problems VLADISLAV on CKD stage 3 likely cardiorenal. Pt states he is stage 3 ckd unknown specific baseline aHypertension CHF exacerbation BPH with foiley catheter use Plan Agree with diuresis hold off on acei at this time If swelling still significant will add aldactone for synergistic results Strict i/o Avoid nephrotoxins Further recommendations pending clinical course
[2022-04-24] MEDS: SPIRONOLACTONE 25 MG TABLET PO SCH (08:20)
[2022-04-24] MEDS: ASPIRIN 81 MG CHEWABLE TABLET PO SCH (08:20)
[2022-04-24] MEDS: FUROSEMIDE 40 MG/4 ML VIAL IV SCH ×2 (08:21→16:05)
[2022-04-24] MEDS: CEFTRIAXONE 1,000 MG in NA CHLORIDE 0.9% 50 ML IVPB SCH (08:21)
[2022-04-24] MEDS: ENOXAPARIN 80 MG/0.8 ML SQ SCH (08:21)
[2022-04-24] MEDS ORDERED: POTASSIUM CL SA 10 MEQ TAB PO ONE (09:00)
--- NOTE | 2022-04-24 14:02 | EKG ---
Test Date: 2022-04-22 Test Time: 12:23:11 Community Relations Liaison: MERRITT MEASUREMENT RESULTS: Intervals: Rate: 65 MN: 180 QRSD: 124 QT: 424 QTc: 440 [place]: P: 33 MN: 180 QRS: 60 T: 265 INTERPRETIVE STATEMENTS: Sinus rhythm and premature ventricular complexes or fusion complexes Nonspecific intraventricular conduction delay ST & T wave abnormality, consider inferolateral ischemia Abnormal ECG Compared to ECG 04/22/2022 12:22:13 Intraventricular conduction delay now present ST (T wave) deviation now present T-wave abnormality no longer present Possible ischemia still present Electronically Signed On 04-24-22 14:00:04 SUEDING MACHINE OPERATOR by Rolf Garibay
--- NOTE | 2022-04-24 14:02 | EKG ---
Test Date: 2022-04-22 Test Time: 12:30:55 [employer] Car Supervisor: MERRITT MEASUREMENT RESULTS: Intervals: Rate: 65 [place]: 174 QRSD: 124 QT: 448 QTc: 465 [place]: P: 33 [place]: 174 QRS: 56 T: -24 INTERPRETIVE STATEMENTS: Sinus rhythm with occasional premature ventricular complexes Nonspecific intraventricular conduction delay ST & T wave abnormality, consider inferolateral ischemia Abnormal ECG Compared to ECG 04/22/2022 12:23:11 Fusion complex(es) no longer present ST (T wave) deviation still present Possible ischemia still present Electronically Signed On 04-24-22 13:59:58 EMBEDDED SOFTWARE DEVELOPER by Rolf Garibay
--- NOTE | 2022-04-24 14:02 | EKG ---
Test Date: 2022-04-22 Test Time: 12:22:13 Sound Person: MERRITT MEASUREMENT RESULTS: Intervals: Rate: 65 [place]: 164 QRSD: 126 QT: 448 QTc: 465 [place]: P: 38 [place]: 164 QRS: 64 T: 254 INTERPRETIVE STATEMENTS: Sinus rhythm with occasional premature ventricular complexes and fusion complexes Nonspecific intraventricular block T wave abnormality, consider inferolateral ischemia Abnormal ECG Electronically Signed On 04-24-22 14:00:15 SINGLE STROKE PREFORMER by Rolf Garibay
--- NOTE | 2022-04-24 14:53 | P.PN ---
Subjective Date of Service: 04/24/22 Chief Complaint: Penile\\Abdominal edema No acute events overnight. He reports significant improvement in his shortness of breath. He continues to experience orthopnea; although, this is also improving. He denies chest pain or palpitations. His lower extremity swelling seems to be gradually improving and he reports good urine output. Review of Systems 10-point ROS is otherwise unremarkable Respiratory: Shortness of Breath Cardiovascular: Orthopnea, Edema Physical Examination - Vital Signs Temperature: 98.5 F Blood Pressure: 139/76 Pulse: 84 Respirations: 20 Pulse Ox (%): 97 Assessment And Plan - Plan - Physical Exam General: Alert, In no apparent distress, Oriented x3 HEENT: Atraumatic, Mucous membr. moist/pink, EOMI, Sclerae nonicteric Neck: JVD minimally distended Respiratory: Crackles/rales (bibasilar) Cardiovascular: Regular rate/rhythm, Normal S1 S2, No gallops, No rubs, Edema (3+ involving BLE and penis/scrotum), Systolic murmur Gastrointestinal: Normal bowel sounds, Soft and benign, No tenderness, No rebound, No guarding, Distended Musculoskeletal: No clubbing Integumentary: No rashes Neurological: Normal speech, Cranial nerves 3-12 intact, Normal affect # Acute on Chronic Decompensated Diastolic Congestive Heart Failure with Preserved Ejection Fraction # Severe Tricuspid Regurgitation # Moderate-Severe Pulmonary Venous Hypertension - Consult Cardiology and spoke with Dr. Garibay - recommendations appreciated - Recommended V/Q scan in 2-3 days once pulmonary edema improves - Advised that we start full-dose enoxaparin (renally dosed) - Transthoracic echocardiogram = "1. normal left ventricular ejection fraction 55-60% with normal wall motion 2. severely dilated right ventricle with mild dysfunction 3. right atrial enlargement 4. severe tricuspid regurgitation 5. mild pulmonic insufficiency/ aortic insufficiency 6. mild mitral regurgitation 7. moderate to severe pulmonary hypertension with right ventricular systolic pressure of 55-60 mmhg and right atrial pressure is greater than 20 mmHg" - Bilateral Doppler = "No evidence of deep venous thrombosis involving the left lower extremity." - Chest x-ray = "blunting left costophrenic sulcus may indicate a small pleural effusion. Pulmonary venous hypertension. Lucency lateral to the right hilum may represent normal lung surrounded by pulmonary vessels or a cavitary lesion or lung cyst. PA and lateral chest series recommended." - PA + Lateral = "Mild to moderate CHF. " - Diuresis with IV furosemide - Daily weights - Strict I/O - Cardiac diet, 1.5 L fluid restriction, 2 g Na restriction # KDIGO Stage I Acute Kidney Injury on Chronic Kidney Disease Stage IV # Anemia of Chronic Kidney Disease - Nephrology consulted - recommendations appreciated - Creatinine = 2.91 -> 2.64 -> 2.51 -> 2.42 - Urinalysis = 5-10 hyaline casts, trace protein - IV diuretics as mentioned above - Monitor creatinine and urine output - If worsening, obtain renal ultrasound - Renally dose medications # Chronic Obstructive Pulmonary Disease - Does not appear to be in acute exacerbation - Continue home medications once verified # Peripheral Artery Disease # Hypertension # Benign Prostatic Hyperplasia - Resume home medications once reconciled Dhaval Barroso M.D.
--- NOTE | 2022-04-24 20:08 | PN ---
Date of Progress Note: 04/24/2022 Subjective: Seen at bedside. Clinically improving. Shortness of breath has improved and lower extr emity edema has improved. Review of Systems: There is no chest pain, shortness of breath, or lower extremity edema. No orthopnea. No nausea, vom iting, or diarrhea. No abdominal pain. No dysuria, polyuria, or urgency. All other systems reviewe d and they are negative. Physical Examination: Vital Signs: Reviewed. Head And Neck: Pupils are equal and reactive to light. Intact eye movements. Mild JVD elevation. No cervical lymphadenopathy. Neck is supple. Thyroid is not enlarged. Lungs: Decreased breathing sounds with crackles bilaterally. No accessory muscle use or muscle retr action. Heart: Regular. No extra sounds. Abdomen: Soft, nontender. Bowel sounds positive. No organomegaly. No masses or hernia. No rigidi ty or rebound. Extremities: No clubbing or cyanosis. Intact pulses. Skin: No rashes. Neurologic: Alert, awake, and oriented x3. No acute focal deficits appreciated. Investigations: BUN 45, creatinine is 2.42. Hemoglobin is 8.4. Assessment/recommendation: 1.Right-sided congestive heart failure, improving. Continue IV diuretics. 2.Dilated right ventricle with mild right ventricular systolic dysfunction. Once the patient is sherif ropriately diuresed, recommend V/Q scan to rule out chronic pulmonary embolism. In the interim, the patient is to be continued on therapeutic Lovenox. 3.Hypertension. Blood pressure is controlled. SR/MODL Voice ID: [id number] Report ID: [id number]
[2022-04-25 04:09] LABS: Absolute Lymphocytes (CBC) 0.4 K/uL (0.7-4.9); Lymphocytes % 18.4 % (15.3-44.8); MCV 91.7 fL (80-100); MPV 7.8 fL (7.6-11.3); RBC Red Blood Cell Count 2.72 M/uL (4.33-5.43)
[2022-04-25 04:19] LABS: Magnesium 2.4 mg/dL (1.6-2.4); Potassium 3.8 mmol/L (3.5-5.1)
[2022-04-25] MEDS: FUROSEMIDE 40 MG/4 ML VIAL IV SCH ×2 (08:56→17:07)
[2022-04-25] MEDS: ASPIRIN 81 MG CHEWABLE TABLET PO SCH (08:56)
[2022-04-25] MEDS: ENOXAPARIN 80 MG/0.8 ML SQ SCH (08:57)
[2022-04-25] MEDS: SPIRONOLACTONE 25 MG TABLET PO SCH (08:57)
[2022-04-25] MEDS ORDERED: POTASSIUM CL SA 10 MEQ TAB PO ONE (09:00)
[2022-04-25] MEDS: CEFTRIAXONE 1,000 MG in NA CHLORIDE 0.9% 50 ML IVPB SCH (09:40)
--- NOTE | 2022-04-25 13:46 | RAD REPORT ---
EXAM DESCRIPTION: RAD - Chest Single View - 04/25/2022 1:36 pm CLINICAL HISTORY: Post VQ scan COMPARISON: Chest Pa And Lat (2 Views) dated 04/23/2022; Chest Single View dated 04/22/2022 FINDINGS: Lines: None. Lungs: Masslike opacity in the right mid lung measuring 7.8 cm. Diffuse prominence of the pulmonary v asculature. Likely atelectasis as a result of the left effusion. Pleural: Small moderate left Cardiac: Cardiomegaly. Sternotomy. Mediastinum: Within normal limits. Bones: No acute fractures. Other: None IMPRESSION: 1. Right mid lung masslike opacity. While this could represent a pseudomass as result of trapped pleural fluid, recommend chest CT for further evaluation. 2. Radiographic findings likely representing pulmonary edema with mild worsening since 04/23/2022. .
--- NOTE | 2022-04-25 14:50 | RAD REPORT ---
EXAM DESCRIPTION: NM - Vent Perfusion VQ Scan - 04/25/2022 1:44 pm CLINICAL HISTORY: Shortness of breath, rule out pulmonary embolus COMPARISON: Same-day chest radiograph TECHNIQUE: The patient was administered approximately 7 mCi Tc-99m SC labeled RBCs followed by stand vimal 8 view protocol. No Xe-133 administered for inhalation images due to national shortage. FINDINGS: Large defect in the right anterior mid lung corresponding with the abnormality identified on the chest radiograph. Moderate size defects identified in the left upper and left lower lobe. The patient has a left pleural effusion and likely associated atelectasis which accounts for the left low er lobe abnormality on perfusion. Overall, two large matched and one mismatched defect present. IMPRESSION: Based on perfusion only modified PIOPED II criteria, the findings correspond with an INT ERMEDIATE probability for pulmonary embolism.
--- NOTE | 2022-04-25 14:58 | PN ---
Date of Progress Note: 04/25/2022 Subjective: Seen by bedside, doing better. His fluids coming off nicely and breathing much better. Review of Systems: No chest pain. Has shortness of breath on exertion, edema of lower extremities improved. No nausea, vomiting, diarrhea. All other systems reviewed and they were negative. Physical Examination: Vital Signs: Reviewed. Head and Neck: Pupils are equal, reactive to light. Intact eye movements. No JVD. No cervical lym phadenopathy. Neck is supple. Thyroid is not enlarged. Lungs: Decreased breathing sounds with thin crackles. No accessory muscle use or muscle retraction. Heart: Regular rate and rhythm. No extra sounds. Abdomen: Soft, nontender. Bowel sounds positive. No organomegaly. No masses or hernia. No rigidi ty or rebound. Extremities: Edema 1+ bilaterally with improvement. No clubbing or cyanosis. Intact pulses. Skin: No rash. Neurologic: Alert, awake, oriented x3. No acute focal deficits appreciated. Investigations: BUN 41, creatinine 2.23, and hemoglobin is 8.3. Assessment And Recommendations: 1.Acute on chronic congestive heart failure exacerbation. It is right ventricle failure. Await on the V/Q scan. Continue diuresis. He is improving gradually. He can be switched to oral Lasix and t he patient discharged tomorrow. 2.Acute on chronic renal failure. His creatinine is improving with diuresis. Due to severe elevate d central venous pressure, continue diuresis and reassess labs in the morning. Anticipate discharge within next 24 hours if he continues to be stable. SR/MODL Voice ID: [id number] Report ID: [id number]
--- NOTE | 2022-04-25 20:35 | P.PN ---
Subjective Date of Service: 04/25/22 Chief Complaint: Penile\\Abdominal edema No acute events overnight. He reports significant improvement in his shortness of breath and orthopnea. He denies chest pain or palpitations. His lower extremity swelling seems to be gradually improving and he reports good urine output. No additional concerns this morning. Review of Systems 10-point ROS is otherwise unremarkable Respiratory: Shortness of Breath Cardiovascular: Orthopnea, Edema Physical Examination - Vital Signs Temperature: 96.9 F Blood Pressure: 157/70 Pulse: 91 Respirations: 20 Pulse Ox (%): 94 Assessment And Plan - Plan - Physical Exam General: Alert, In no apparent distress, Oriented x3 HEENT: Atraumatic, Mucous membr. moist/pink, EOMI, Sclerae nonicteric Neck: JVD minimally distended Respiratory: Crackles/rales (bibasilar) Cardiovascular: Regular rate/rhythm, Normal S1 S2, No gallops, No rubs, Edema (3+ involving BLE and penis/scrotum), Systolic murmur Gastrointestinal: Normal bowel sounds, Soft and benign, No tenderness, No rebound, No guarding, Distended Musculoskeletal: No clubbing Integumentary: No rashes Neurological: Normal speech, Cranial nerves 3-12 intact, Normal affect # Acute on Chronic Decompensated Diastolic Congestive Heart Failure with Preserved Ejection Fraction # Severe Tricuspid Regurgitation # Moderate-Severe Pulmonary Venous Hypertension - Consult Cardiology and spoke with Dr. Garibay - recommendations appreciated - Recommended V/Q scan in 2-3 days once pulmonary edema improves - Advised that we start full-dose enoxaparin (renally dosed) - Transthoracic echocardiogram = "1. normal left ventricular ejection fraction 55-60% with normal wall motion 2. severely dilated right ventricle with mild dysfunction 3. right atrial enlargement 4. severe tricuspid regurgitation 5. mild pulmonic insufficiency/ aortic insufficiency 6. mild mitral regurgitation 7. moderate to severe pulmonary hypertension with right ventricular systolic pressure of 55-60 mmhg and right atrial pressure is greater than 20 mmHg" - Bilateral Doppler = "No evidence of deep venous thrombosis involving the left lower extremity." - Chest x-ray = "blunting left costophrenic sulcus may indicate a small pleural effusion. Pulmonary venous hypertension. Lucency lateral to the right hilum may represent normal lung surrounded by pulmonary vessels or a cavitary lesion or lung cyst. PA and lateral chest series recommended." - PA + Lateral = "Mild to moderate CHF. 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
[2022-04-25] MEDS: MELATONIN 3 MG TABLET PO PRN (21:01)
[2022-04-26 05:24] LABS: Absolute Lymphocytes (CBC) 0.5 K/uL (0.7-4.9); Hematocrit 24.8 % (39.6-49.0); Lymphocytes % 21.8 % (15.3-44.8); MCV 91.6 fL (80-100); MPV 7.7 fL (7.6-11.3); RBC Red Blood Cell Count 2.71 M/uL (4.33-5.43)
[2022-04-26 05:37] LABS: Magnesium 2.4 mg/dL (1.6-2.4); Potassium 3.9 mmol/L (3.5-5.1)
[2022-04-26] MEDS ORDERED: POTASSIUM CL SA 10 MEQ TAB PO ONE (06:00)
--- NOTE | 2022-04-26 07:35 | P.PN ---
Subjective Date of Service: 04/25/22 Chief Complaint: Penile\Abdominal edema Pt doing better, swelling much improved. Still has scrotal swelling Physical Examination - Vital Signs Temperature: 97.0 F Blood Pressure: 137/63 Pulse: 63 Respirations: 18 Pulse Ox (%): 99 - Physical Exam General: Alert, In no apparent distress HEENT: Atraumatic, PERRLA, EOMI Neck: Supple, JVD not distended Cardiovascular: Edema Capillary refill: <2 Seconds Gastrointestinal: Normal bowel sounds, No tenderness Musculoskeletal: No tenderness Integumentary: No rashes Lymphatics: No axilla or inguinal lymphadenopathy Urinary: Rowan catheter External genitalia: Edema Assessment And Plan - Plan Problems VLADISLAV on CKD due to cardiorenal etiology CHF exacerbation Hypertension hyperlipidmeia Plan Continue diuresis. Kidney function improving Aldactone added with good result Scrotal support and elevation Strict i/o Avoid nephrotoxins Other management per primary tean Physician Review: Patient Assessed, Agree with Above Assessment and Plan
[2022-04-26] MEDS: SPIRONOLACTONE 25 MG TABLET PO SCH (08:45)
[2022-04-26] MEDS: CEFTRIAXONE 1,000 MG in NA CHLORIDE 0.9% 50 ML IVPB SCH (08:46)
[2022-04-26] MEDS: ASPIRIN 81 MG CHEWABLE TABLET PO SCH (08:47)
[2022-04-26] MEDS: ENOXAPARIN 80 MG/0.8 ML SQ SCH (08:47)
[2022-04-26] MEDS: FUROSEMIDE 40 MG/4 ML VIAL IV SCH ×2 (08:47→17:40)
--- NOTE | 2022-04-26 16:25 | P.PN ---
Subjective Date of Service: 04/26/22 Chief Complaint: Penile\\Abdominal edema No acute events overnight. He reports gradual improvement in his shortness of breath. He denies chest pain or palpitations. V/Q scan with intermediate probability, remains on enoxaparin. No additional concerns this morning. At his request, I spoke with his and updated her on his hospital course. Review of Systems 10-point ROS is otherwise unremarkable Respiratory: Shortness of Breath Cardiovascular: Orthopnea Physical Examination - Vital Signs Temperature: 97.6 F Blood Pressure: 145/77 Pulse: 77 Respirations: 18 Pulse Ox (%): 99 Assessment And Plan - Plan - Physical Exam General: Alert, In no apparent distress, Oriented x3 HEENT: Atraumatic, Mucous membr. moist/pink, EOMI, Sclerae nonicteric Neck: JVD minimally distended Respiratory: Crackles/rales (faint bibasilar) Cardiovascular: Regular rate/rhythm, Normal S1 S2, No gallops, No rubs, Edema (2-3+ involving BLE and penis/scrotum), Systolic murmur Gastrointestinal: Normal bowel sounds, Soft and benign, No tenderness, No rebound, No guarding, Distended Musculoskeletal: No clubbing Integumentary: No rashes Neurological: Normal speech, Cranial nerves 3-12 intact, Normal affect # Acute on Chronic Decompensated Diastolic Congestive Heart Failure with Preserved Ejection Fraction # Severe Tricuspid Regurgitation # Moderate-Severe Pulmonary Venous Hypertension - Consult Cardiology and spoke with Dr. Garibay - recommendations appreciated - Recommended V/Q scan = "Based on perfusion only modified PIOPED II criteria, the findings correspond with an INTERMEDIATE probability for pulmonary embolism." - Advised that we start full-dose enoxaparin (renally dosed) - Transthoracic echocardiogram = "1. normal left ventricular ejection fraction 55-60% with normal wall motion 2. severely dilated right ventricle with mild dysfunction 3. right atrial enlargement 4. severe tricuspid regurgitation 5. mild pulmonic insufficiency/ aortic insufficiency 6. mild mitral regurgitation 7. moderate to severe pulmonary hypertension with right ventricular systolic pressure of 55-60 mmhg and right atrial pressure is greater than 20 mmHg" - Bilateral Doppler = "No evidence of deep venous thrombosis involving the left lower extremity." - Chest x-ray = "blunting left costophrenic sulcus may indicate a small pleural effusion. Pulmonary venous hypertension. Lucency lateral to the right hilum may represent normal lung surrounded by pulmonary vessels or a cavitary lesion or lung cyst. PA and lateral chest series recommended." - PA + Lateral = "Mild to moderate CHF. 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 Leyva - recommendations appreciated - Creatinine = 2.91 -> 2.64 -> 2.51 -> 2.42 -> 2.23 -> 2.19 - Urinalysis = 5-10 hyaline casts, trace protein - IV diuretics as mentioned above - Monitor creatinine and urine output - If worsening, obtain renal ultrasound - Renally dose medications # Catheter-Associated Escherichia Coli Urinary Tract Infection (present on admission) - Has chronic indwelling Rowan catheter - UCx positive for E. Coli - Continue ceftriaxone # Chronic Obstructive Pulmonary Disease - Does not appear to be in acute exacerbation - Continue home medications once verified # Peripheral Artery Disease # Hypertension # Benign Prostatic Hyperplasia - Resume home medications once reconciled Dhaval Barroso M.D.
--- NOTE | 2022-04-26 20:12 | PN ---
Date of Progress Note: 04/26/2022 Subjective: Seen at bedside. Continues to improve. Breathing has improved and his creatinine is im proving. Review of Systems: No shortness of breath, but he has lower extremity edema. No nausea, vomiting, diarrhea. No abdomin al pain. No dysuria, polyuria, or urgency. No skin rash. All other systems reviewed are negative. Physical Examination: Vital Signs: Reviewed. Head and Neck: Pupils are equal, reactive to light. Intact eye movements. Mild JVD. No cervical l ymphadenopathy. Neck is supple. Thyroid is not enlarged. Lungs: Clear to auscultation bilaterally. No rhonchi, rales, or crackles. No accessory muscle use. Heart: Irregular. No extra sounds. Abdomen: Soft, nontender. Bowel sounds positive. No organomegaly. No masses or hernia. No rigidi ty or rebound. Extremities: Edema bilaterally. No clubbing, cyanosis. Intact pulses. Skin: No rash. Neurologic: Alert, awake. No acute focal deficits appreciated. Investigations: V/Q scan is moderate probability for PE. Assessment/recommendation: 1.Acute on chronic congestive heart failure exacerbation is improving significantly. Continue IV La six. I recommend if the blood pressure allows, to increase Lasix to 40 mg IV q.8 hours. 2.Right-sided heart failure with severely dilated RV and V/Q scan suggestive of . Recomme nd full anticoagulation with Eliquis 2.5 mg twice a day. 3.Acute on chronic renal failure due to elevated central venous pressure improving with diuretics. Continue current management. SR/MODL Voice ID: [id number] Report ID: [id number]
[2022-04-26] MEDS: AMINO ACIDS/PROTEIN HYDROLYS 30 ML LIQUID.PKT PO SCH (20:27)
[2022-04-27] MEDS: BENZONATATE 100 MG CAP PO PRN ×2 (03:27→21:35)
[2022-04-27 04:44] LABS: Potassium 4.1 mmol/L (3.5-5.1)
[2022-04-27] MEDS: SPIRONOLACTONE 25 MG TABLET PO SCH (08:24)
[2022-04-27] MEDS: ENOXAPARIN 80 MG/0.8 ML SQ SCH (08:24)
[2022-04-27] MEDS: ASPIRIN 81 MG CHEWABLE TABLET PO SCH (08:25)
[2022-04-27] MEDS: FUROSEMIDE 40 MG/4 ML VIAL IV SCH ×2 (08:25→16:36)
[2022-04-27] MEDS: AMINO ACIDS/PROTEIN HYDROLYS 30 ML LIQUID.PKT PO SCH ×2 (08:26→21:36)
--- NOTE | 2022-04-27 14:07 | P.PN ---
Subjective Date of Service: 04/27/22 Chief Complaint: Penile\\Abdominal edema No acute events overnight. He is sitting upright in the chair eating breakfast. He reports significant improvement in his symptoms. He endorses orthopnea and lower extremity edema. Rowan catheter needs to be exchanged given UTI, but hesitant to do so due to potential difficulty reinserting a new Rowan catheter with his significant edema. Review of Systems 10-point ROS is otherwise unremarkable Respiratory: Shortness of Breath Cardiovascular: Orthopnea, Edema Physical Examination - Vital Signs Temperature: 97.9 F Blood Pressure: 141/65 Pulse: 61 Respirations: 16 Pulse Ox (%): 94 Assessment And Plan - Plan - Physical Exam General: Alert, In no apparent distress, Oriented x3 HEENT: Atraumatic, Mucous membr. moist/pink, EOMI, Sclerae nonicteric Neck: JVD minimally distended Respiratory: Crackles/rales (faint bibasilar) Cardiovascular: Regular rate/rhythm, Normal S1 S2, No gallops, No rubs, Edema (2+ involving BLE and penis/scrotum), Systolic murmur Gastrointestinal: Normal bowel sounds, Soft and benign, No tenderness, No rebound, No guarding, Distended Musculoskeletal: No clubbing Integumentary: No rashes Neurological: Normal speech, Cranial nerves 3-12 intact, Normal affect # Acute on Chronic Decompensated Diastolic Congestive Heart Failure with Preserved Ejection Fraction # Severe Tricuspid Regurgitation # Moderate-Severe Pulmonary Venous Hypertension - Consult Cardiology and spoke with Dr. Garibay - recommendations appreciated - Recommended V/Q scan = "Based on perfusion only modified PIOPED II criteria, the findings correspond with an INTERMEDIATE probability for pulmonary embolism." - Advised that we start full-dose enoxaparin (renally dosed) - Transthoracic echocardiogram = "1. normal left ventricular ejection fraction 55-60% with normal wall motion 2. severely dilated right ventricle with mild dysfunction 3. right atrial enlargement 4. severe tricuspid regurgitation 5. mi ld pulmonic insufficiency/ aortic insufficiency 6. mild mitral regurgitation 7. moderate to severe pulmonary hypertension with right ventricular systolic pressure of 55-60 mmhg and right atrial pressure is greater than 20 mmHg" - Bilateral Doppler = "No evidence of deep venous thrombosis involving the left lower extremity." - Chest x-ray = "blunting left costophrenic sulcus may indicate a small pleural effusion. Pulmonary venous hypertension. Lucency lateral to the right hilum may represent normal lung surrounded by pulmonary vessels or a cavitary lesion or lung cyst. PA and lateral chest series recommended." - PA + Lateral = "Mild to moderate CHF. " - Diuresis with IV furosemide - Continue spironolactone - Daily weights - Strict I/O - Cardiac diet, 1.5 L fluid restriction, 2 g Na restriction - Repeat chest x-ray tomorrow morning # KDIGO Stage I Acute Kidney Injury on Chronic Kidney Disease Stage IV # Anemia of Chronic Kidney Disease - Nephrology consulted and spoke with Dr. Leyva - recommendations appreciated - Creatinine = 2.91 -> 2.64 -> 2.51 -> 2.42 -> 2.23 -> 2.19 -> 2.09 - Urinalysis = 5-10 hyaline casts, trace protein - IV diuretics as mentioned above - Monitor creatinine and urine output - If worsening, obtain renal ultrasound - Renally dose medications # Catheter-Associated Escherichia Coli Urinary Tract Infection (present on admission) - Has chronic indwelling Rowan catheter - Exchange Rowan catheter when able - UCx positive for E. Coli - Continue ceftriaxone # Chronic Obstructive Pulmonary Disease - Does not appear to be in acute exacerbation - Continue home medications once verified # Peripheral Artery Disease # Hypertension # Benign Prostatic Hyperplasia - Resume home medications once reconciled Dhaval Barroso M.D.
[2022-04-27] MEDS: MELATONIN 3 MG TABLET PO PRN (21:35)
[2022-04-28] MEDS ORDERED: DIPHENHYDRAMINE 25 MG TAB/CAP PO ONE (00:44)
[2022-04-28 04:45] LABS: Magnesium 2.3 mg/dL (1.6-2.4); Phosphorus 2.9 mg/dL (2.5-4.9); Potassium 3.9 mmol/L (3.5-5.1)
[2022-04-28] MEDS ORDERED: CEFTRIAXONE 1000 MG/VIAL ONE (08:32)
[2022-04-28] MEDS ORDERED: NA CHLORIDE 0.9% 50 ML IV ONE (08:33)
[2022-04-28] MEDS: CEFTRIAXONE 1,000 MG in NA CHLORIDE 0.9% 50 ML IVPB SCH (09:00)
[2022-04-28] MEDS: AMINO ACIDS/PROTEIN HYDROLYS 30 ML LIQUID.PKT PO SCH ×2 (09:00→22:13)
[2022-04-28] MEDS: SPIRONOLACTONE 25 MG TABLET PO SCH (09:00)
[2022-04-28] MEDS: ASPIRIN 81 MG CHEWABLE TABLET PO SCH (09:03)
[2022-04-28] MEDS: ENOXAPARIN 80 MG/0.8 ML SQ SCH (09:04)
[2022-04-28] MEDS: FUROSEMIDE 40 MG/4 ML VIAL IV SCH ×2 (09:04→17:17)
--- NOTE | 2022-04-28 09:04 | RAD REPORT ---
EXAM DESCRIPTION: RAD - Chest Single View - 04/28/2022 6:25 am CLINICAL HISTORY: follow-up Chest pain. COMPARISON: Chest Single View dated 04/25/2022; Chest Pa And Lat (2 Views) dated 04/23/2022; Chest S gautam View dated 04/22/2022 FINDINGS: Portable technique limits examination quality. Moderate bilateral pulmonary opacities are present likely representing pulmonary edema. Small moderat e bilateral pleural effusions are seen. Rounded right mid lung mass like lesion again seen. The heart is moderately enlarged. Sternotomy wires are present. IMPRESSION: Moderate CHF versus volume overload pattern. Consider follow-up CT chest per prior recom mendation to assess right midlung masslike lesion.
--- NOTE | 2022-04-28 13:43 | P.PN ---
Subjective Date of Service: 04/28/22 Chief Complaint: Penile\\Abdominal edema No acute events overnight. He is sitting upright in the chair reading. He feels that his respiratory symptoms are improving daily. He reports that he has lost 16 pounds since admission. He states that he is about 6 pounds over his dry weight and he feels much better. Rowan catheter needs to be exchanged given UTI, but hesitant to do so due to potential difficulty reinserting a new Rowan catheter with his significant edema. May need to wait until tomorrow when Urology is available to assist with catheter exchange. Review of Systems 10-point ROS is otherwise unremarkable Respiratory: Shortness of Breath Cardiovascular: Orthopnea, Edema Physical Examination - Vital Signs Temperature: 98.1 F Blood Pressure: 150/72 Pulse: 72 Respirations: 18 Pulse Ox (%): 96 Assessment And Plan - Plan - Physical Exam General: Alert, In no apparent distress, Oriented x3 HEENT: Atraumatic, Mucous membr. moist/pink, EOMI, Sclerae nonicteric Neck: JVD not distended Respiratory: Crackles/rales (faint bibasilar) Cardiovascular: Regular rate/rhythm, Normal S1 S2, No gallops, No rubs, Edema (1-2+ involving BLE and penis/scrotum), Systolic murmur Gastrointestinal: Normal bowel sounds, Soft and benign, No tenderness, No reny ound, No guarding, Distended Musculoskeletal: No clubbing Integumentary: No rashes Neurological: Normal speech, Cranial nerves 3-12 intact, Normal affect # Acute on Chronic Decompensated Diastolic Congestive Heart Failure with Preserved Ejection Fraction # Severe Tricuspid Regurgitation # Moderate-Severe Pulmonary Venous Hypertension - Consult Cardiology and spoke with Dr. Garibay - recommendations appreciated - Recommended V/Q scan = "Based on perfusion only modified PIOPED II criteria, the findings correspond with an INTERMEDIATE probability for pulmonary embolism." - Advised that we start full-dose enoxaparin (renally dosed) - Transthoracic echocardiogram = "1. normal left ventricular ejection fraction 55-60% with normal wall motion 2. severely dilated right ventricle with mild dysfunction 3. right atrial enlargement 4. severe tricuspid regurgitation 5. mild pulmonic insufficiency/ aortic insufficiency 6. mild mitral regurgitation 7. moderate to severe pulmonary hypertension with right ventricular systolic pressure of 55-60 mmhg and right atrial pressure is greater than 20 mmHg" - Bilateral Doppler = "No evidence of deep venous thrombosis involving the left lower extremity." - Chest x-ray = "blunting left costophrenic sulcus may indicate a small pleural effusion. Pulmonary venous hypertension. Lucency lateral to the right hilum may represent normal lung surrounded by pulmonary vessels or a cavitary lesion or lung cyst. PA and lateral chest series recommended." - PA + Lateral = "Mild to moderate CHF. " - Diuresis with IV furosemide - Continue spironolactone - Daily weights - Strict I/O - Cardiac diet, 1.5 L fluid restriction, 2 g Na restriction - Repeat chest x-ray this morning = "moderate CHF versus volume overload pattern. Consider follow-up CT chest per prior recommendation to assess right midlung masslike lesion." - CT chest ordered # KDIGO Stage I Acute Kidney Injury on Chronic Kidney Disease Stage IV # Anemia of Chronic Kidney Disease - Nephrology consulted and spoke with Dr. Leyva - recommendations appreciated - Creatinine = 2.91 -> 2.64 -> 2.51 -> 2.42 -> 2.23 -> 2.19 -> 2.09 -> 2.04 - Urinalysis = 5-10 hyaline casts, trace protein - IV diuretics as mentioned above - Monitor creatinine and urine output - If worsening, obtain renal ultrasound - Renally dose medications # Catheter-Associated Escherichia Coli Urinary Tract Infection (present on admission) - Has chronic indwelling Rowan catheter - Exchange Rowan catheter when able - UCx positive for E. Coli - Continue ceftriaxone # Chronic Obstructive Pulmonary Disease - Does not appear to be in acute exacerbation - Continue home medications once verified # Peripheral Artery Disease # Hypertension # Benign Prostatic Hyperplasia - Resume home medications once reconciled If he continues to diurese well and we are able to exchange his Rowan catheter. Anticipate he can be discharged in the next 24-48 hours. Dhaval Barroso M.D.
[2022-04-28] MEDS ORDERED: ZOLPIDEM TARTRATE 5 MG TABLET PO PRN (13:45)
--- NOTE | 2022-04-28 15:14 | RAD REPORT ---
EXAM DESCRIPTION: CT - Thorax Wo Con CLINICAL HISTORY: Chest pain mass? COMPARISON: No comparisons FINDINGS: 6 mm noncalcified nodule is seen superior segment right lower lobe. Mild atelectasis is pr esent in both lung bases. Loculated small right pleural effusion is present with mild fluid loculated in the major fissure. This likely causes the chest radiograph finding recently described. Small left pleural effusion is also present. No axillary, mediastinal or hilar adenopathy. No concerning bony finding. No gross upper abdominal finding. All CT scans are performed using dose optimization technique as appropriate and may include automated exposure control or mA/KV adjustment according to patient size. IMPRESSION: Loculated small right pleural effusion on the right likely results in the abnormal chest radiograph finding.A worrisome lung mass is not identified. Small to moderate left pleural effusion. Small noncalcified pulmonary nodule measuring 6 mm superior segment right lower lobe. Recommend follo w-up CT chest in 6 months for surveillance.
[2022-04-28] MEDS: MELATONIN 3 MG TABLET PO PRN (22:12)
[2022-04-29 06:25] LABS: Magnesium 2.3 mg/dL (1.6-2.4); Potassium 3.9 mmol/L (3.5-5.1)
[2022-04-29] MEDS ORDERED: CEFTRIAXONE 1000 MG/VIAL ONE (07:31)
[2022-04-29] MEDS ORDERED: NA CHLORIDE 0.9% 50 ML IV ONE (07:43)
[2022-04-29] MEDS: ENOXAPARIN 80 MG/0.8 ML SQ SCH (08:21)
[2022-04-29] MEDS: FUROSEMIDE 40 MG/4 ML VIAL IV SCH ×2 (08:21→16:20)
[2022-04-29] MEDS: ASPIRIN 81 MG CHEWABLE TABLET PO SCH (08:21)
[2022-04-29] MEDS: CEFTRIAXONE 1,000 MG in NA CHLORIDE 0.9% 50 ML IVPB SCH (08:22)
[2022-04-29] MEDS: SPIRONOLACTONE 25 MG TABLET PO SCH (08:27)
[2022-04-29] MEDS: AMINO ACIDS/PROTEIN HYDROLYS 30 ML LIQUID.PKT PO SCH ×2 (08:28→21:00)
[2022-04-29] MEDS ORDERED: POTASSIUM CL SA 10 MEQ TAB PO ONE (09:00)
--- NOTE | 2022-04-29 13:57 | PN ---
Date of Progress Note: 04/29/2022 Subjective: Seen by bedside, doing very well. Appears to be euvolemic. Review of Systems: No chest pain, shortness of breath, orthopnea, cough, nausea, vomiting, diarrhea. All other systems reviewed are negative. Physical Examination: Vital Signs: Reviewed. Head and Neck: Pupils are equal, reactive to light. Intact eye movements. No JVD. No cervical lym phadenopathy. Neck is supple. Thyroid is not enlarged. Lungs: Clear to auscultation bilaterally. No rhonchi, rales, or crackles. No accessory muscle use. Heart: Regular rate and rhythm with apical holosystolic murmur. Abdomen: Soft, nontender. Bowel sounds positive. No organomegaly. No masses or hernia. No rigidi ty or rebound. EXTREMITIES: Trace edema bilaterally. No clubbing, cyanosis. Intact pulses. Skin: No rashes. Neurologic: Alert, awake, oriented x3. No acute focal deficits appreciated. Investigations: BUN 38, creatinine 1.94. Assessment/recommendations: 1.Acute on chronic right-sided heart failure. He is doing very well with diuresis and he can be swi tched to oral Lasix 40 mg twice a day and arrangement for discharge and to follow up with his cardiol ogist. 2.Dilated right ventricle with high right-sided filling pressure. V/Q scan with intermediate probab ility for pulmonary embolism. I would recommend anticoagulation with Eliquis 2.5 mg twice a day. From Cardiology standpoint, patient can be released and follow up as an outpatient. SR/MODL Voice ID: [id number] Report ID: [id number]
[2022-04-29] MEDS: MELATONIN 3 MG TABLET PO PRN (21:45)
[2022-04-29] MEDS: APIXABAN 2.5 MG TABLET PO SCH (21:45)
--- NOTE | 2022-04-29 23:59 | P.PN ---
Subjective Date of Service: 04/29/22 Subjective: Improving PATIENT IS CLINICALLY FEELING MUCH BETTER. SYMPTOMS CONTINUED TO IMPROVE. CHANGE NAZARIO CATHETER IN A.M. WILL HAVE UROLOGY AROUND. CONTINUE WITH DECOMPRESSING ANTICIPATE DISCHARGE AFTER EXCHANGE OF NAZARIO CATHETER. Review of Systems 10-point ROS is otherwise unremarkable Physical Examination - Vital Signs Temperature: 97.7 F Blood Pressure: 158/76 Pulse: 75 Respirations: 19 Pulse Ox (%): 100 - Physical Exam General: Alert, In no apparent distress HEENT: Atraumatic, PERRLA, EOMI Neck: Supple, JVD not distended Respiratory: Clear to auscultation bilaterally, Normal air movement Cardiovascular: Regular rate/rhythm, Normal S1 S2 Gastrointestinal: Normal bowel sounds, Soft and benign, Non-distended, No tenderness Musculoskeletal: No tenderness Neurological: Sensation intact, Cranial nerves 3-12 intact External genitalia: Edema - Studies Medications List Reviewed: Yes Assessment & Plan - Problems (Diagnosis) (1) Penile edema Current Visit: Yes Status: Acute (2) HTN (hypertension) Current Visit: Yes Status: Acute (3) CAD (coronary artery disease) Current Visit: Yes Status: Acute (4) COPD (chronic obstructive pulmonary disease) Current Visit: Yes Status: Acute (5) PAD (peripheral artery disease) Current Visit: Yes Status: Acute - Plan PLAN: 1. PLAN TO REPLACE WITH NAZARIO CATHETER 2. UROLOGY WILL BE AVAILABLE IN THE MORNING AND ONCE WE REPLACE NAZARIO ANTICIPATE DISCHARGE 3. CONTINUE WITH CARDIAC MEDS 4. STRICT BLOOD PRESSURE CONTROL 5. GI DVT PROPHYLAXIS Discharge Plan: Home Plan to discharge in: Greater than 2 days - Advance Directives Does patient have a Living Will: No Does patient have a Durable POA for Healthcare: No - Code Status/Comfort Care Code Status Assessed: Yes Code Status: Full Code Physician Review: Patient Assessed, Agree with Above Assessment and Plan Critical Care: No Time Spent Managing PTS Care (In Minutes): 35
[2022-04-30] MEDS ORDERED: CEFTRIAXONE 1000 MG/VIAL ONE (07:30)
[2022-04-30] MEDS ORDERED: NA CHLORIDE 0.9% 50 ML IV ONE (07:31)
[2022-04-30] MEDS: ASPIRIN 81 MG CHEWABLE TABLET PO SCH (07:52)
[2022-04-30] MEDS: FUROSEMIDE 40 MG/4 ML VIAL IV SCH (07:53)
[2022-04-30] MEDS: CEFTRIAXONE 1,000 MG in NA CHLORIDE 0.9% 50 ML IVPB SCH (07:53)
[2022-04-30] MEDS: SPIRONOLACTONE 25 MG TABLET PO SCH (07:53)
[2022-04-30] MEDS: APIXABAN 2.5 MG TABLET PO SCH (07:53)
[2022-04-30] MEDS: AMINO ACIDS/PROTEIN HYDROLYS 30 ML LIQUID.PKT PO SCH (07:54)
[2022-04-30 07:59] LABS: Absolute Lymphocytes (CBC) 0.4 K/uL (0.7-4.9); Hematocrit 25.6 % (39.6-49.0); MCV 91.4 fL (80-100)
[2022-04-30 08:16] LABS: Magnesium 2.3 mg/dL (1.6-2.4)
[2022-04-30 11:08] VITALS: O2SAT 99
--- NOTE | 2022-04-30 12:15 | P.CNS ---
Date of Consult: 04/30/22 Reason for Consult: Cor pulmonale Chief Complaint: Lower extremity edema History of Present Illness: Patient is 81 years of age admitted with worsening lower extremity edema denies any fever planing of some shortness of breath he also has some urinary edema e chocardiogram shows cor pulmonale with dilated right ventricle former smoker quit this year he has significant cardiac history in addition to presumed chronic renal insufficiency Allergies hydrocodone Adverse Reaction (Verified 04/22/22 18:36) Nausea/Vomiting Home Medications: Aspirin [Aspirin EC 81 MG] 81 tab PO BEDTIME 04/23/22 Atorvastatin Calcium [Lipitor] 40 mg PO BEDTIME 04/23/22 Clopidogrel Bisulfate [Plavix] 75 mg PO DAILY 04/23/22 Diltiazem HCl [Cardizem Cd] 240 mg PO DAILY 04/23/22 Finasteride [Proscar*] 5 mg PO DAILY 04/23/22 Isosorbide Mononitrate [Isosorbide Mononitrate ER] 30 mg PO BID 04/23/22 Levothyroxine Sodium [Synthroid] 150 mcg PO DAILY 04/23/22 Magnesium Oxide 250 mg PO DAILY 04/23/22 Metoprolol Succinate [Toprol Xl*] 25 mg PO BID 04/23/22 Nitroglycerin [Nitrostat*] 0.4 mg SL PRN 04/23/22 Pantoprazole Sodium [Protonix] 40 mg PO DAILY 04/23/22 Ubidecarenone [Coenzyme Q-10] 200 mg PO DAILY 04/23/22 gemfibroziL [Gemfibrozil] 600 mg PO BID 04/23/22 Cefdinir [Cefdinir*] 300 mg PO BID #20 cap 04/30/22 - Past Medical/Surgical History -: HTN -: COPD -: PAD -: BPH -: CABG x2 -: Stents in the kidneys and lower extremity - Social History Smoking Status: Former smoker Alcohol use: No CD- Drugs: No Caffeine use: Yes Place of [facility]idence: [facility] Review of Systems 10-point ROS is otherwise unremarkable Respiratory: Shortness of Breath Physical Examination Temp Pulse Resp BP Pulse Ox 97.8 F 72 16 150/70 H 95 04/30/22 08:00 04/30/22 08:00 04/30/22 08:00 04/30/22 08:00 04/30/22 08:00 General: Alert, Oriented x3 Respiratory: Clear to auscultation bilaterally Cardiovascular: No edema, Normal S1 S2 Gastrointestinal: Normal bowel sounds, Soft and benign, Non-distended - Problems (1) Cor pulmonale Current Visit: Yes Status: Acute Plan: Patient is 81 years of age admitted with cor pulmonale pulmonary hypertension dilated ventricle CAT scan shows intermediate probability recommend full anticoagulation creatinine is elevated unable to do a CT pulmonary angiogram patient has a mild pancytopenia x-ray shows effusion on the left side cardiomegaly vital signs are stable his edema has improved blood pressure is mildly elevated no evidence of DVT patient does have a UTI is on Rocephin patient is on spironolactone and Lasix can change management facilitator to p.o. Lasix patient is on diltiazem torsemide and Plavix at home he is high risk for thromboembolism probably indefinite anticoagulation for now oxygenation satisfactory
[2022-04-30 12:33] VITALS: BP 159/67; TEMP 97.9
[2022-04-30] MEDS ORDERED: APIXABAN 5 MG TABLET PO SCH (21:00)
== END 2022-04-30 12:40 | disposition home health service (06) | DRG 698 ==
LOC: ER 11:31 → ERHOLD 14:54 → 2ND 17:58 → 4TH 04-27 19:58
PROVIDERS: ADMIT Internal Medicine; ATTEND Hospitalist
DX: T83.511A Infection and inflammatory reaction due to indwelling urethral catheter, initial encounter (principal); I26.09 Other pulmonary embolism with acute cor pulmonale; I50.33 Acute on chronic diastolic (congestive) heart failure; J96.01 Acute respiratory failure with hypoxia; N18.4 Chronic kidney disease, stage 4 (severe); I13.0 Hypertensive heart and chronic kidney disease with heart failure and stage 1 through stage 4 chronic kidney disease, or unspecified chronic kidney disease; N17.9 Acute kidney failure, unspecified; D61.818 Other pancytopenia; N30.90 Cystitis, unspecified without hematuria; D63.1 Anemia in chronic kidney disease; E78.5 Hyperlipidemia, unspecified; D69.6 Thrombocytopenia, unspecified; N48.89 Other specified disorders of penis; N40.0 Benign prostatic hyperplasia without lower urinary tract symptoms; I07.1 Rheumatic tricuspid insufficiency; I27.20 Pulmonary hypertension, unspecified; I73.9 Peripheral vascular disease, unspecified; B96.20 Unspecified Escherichia coli [E. coli] as the cause of diseases classified elsewhere; Z88.5 Allergy status to narcotic agent; Z79.82 Long term (current) use of aspirin; Z87.891 Personal history of nicotine dependence; Z79.890 Hormone replacement therapy; Z79.899 Other long term (current) drug therapy; Z20.822 Contact with and (suspected) exposure to COVID-19
CPT/HCPCS: 36415; 71045; 71046; 71250; 78582; 80048; 81001; 83735; 83880; 84100; 84145; 84484; 85025; 87077; 87086; 87088; 87186; 87811; 93005; 93306; 93971; 96374; 97116; 97161; 97530; 99284; A9540; J1650; J1940